=== PATIENT | female | born 1965 | race Caucasian/White ===

== ENCOUNTER 2017-09-04 03:35 | Emergency (ER) | payer MEDICAID, OTHER ==
[~2017-09-04] VITALS: Ht 144.8 cm; Wt 86.0 kg
[~2017-09-04 03:35] MED LIST: ACCU CHEK FASTCLIX; AMLO10TA2 PO; BLOOD GLUCOSE T1 TES; BUTA1CAP5 PO; CELE200C PO; CITRTAB7 PO; CLAR10CA3 PO; DOCU1CAP39 PO; FLUT1SPR5 EACH NARE; GLUCOMTESTSTRIPS XX; Glucometer; HUMALOG SQ; INFL1INJ56 IM; INSULIN LISPRO SQ; INSULIN XX; Insulin Syringe; LANTUS2P SQ; LISI2.5T3 PO; MECL-62 PO; METF850T PO; PANT40TA3 PO; ZOCO20TA PO; ZOLO25TA PO; [UNRECOGNIZED DRUG - OTHER]; [UNRECOGNIZED DRUG - SUPPLY] XX
[2017-09-04 03:40] VITALS: BP 157/73; PULSE 100; RESP 16; TEMP 99.1; O2SAT 96
[2017-09-04] MEDS ORDERED: SODIUM CHLOR 0.9% 1000 ML INJ 1,000 ML IV SCH (03:55)
[2017-09-04] MEDS ORDERED: SODIUM CHLORIDE 0.9% FLUSH 10 ML FLUSH IV FLUSH PRN (04:00)
[2017-09-04] MEDS ORDERED: HYDROmorphone HCL PF 2 MG/ML VIAL IV PUSH ONE (04:00)
[2017-09-04] MEDS ORDERED: ONDANSETRON HCL 4 MG/2 ML VIAL IVP ONE (04:00)
[2017-09-04 04:03] VITALS: BP 136/68; PULSE 76; RESP 18; O2SAT 97; O2SAT 98
[2017-09-04] MEDS ORDERED: NAPR500T2 PO (04:13)
[2017-09-04] MEDS ORDERED: ESCI10TA PO (04:13)
[2017-09-04 04:24] LABS: AUTOMATED NEUTROPHIL # 11.7 TH/MM3 (1.8-7.7); BASOPHIL # 0.1 TH/MM3 (0-0.2); BASOPHIL % 0.7 % (0.0-2.0); EOSINOPHIL # 0.1 TH/MM3 (0-0.4); EOSINOPHIL % 0.4 % (0.0-4.0); HEMATOCRIT 40.6 % (35.0-46.0); HEMOGLOBIN 13.7 GM/DL (11.6-15.3); LYMPH % 10.3 % (9.0-44.0); LYMPHOCYTE # 1.4 TH/MM3 (1.0-4.8); MEAN CELL VOLUME 86.4 FL (80.0-100.0); MEAN CORPUSCULAR HEMOGLOBIN 29.1 PG (27.0-34.0); MEAN CORPUSCULAR HGB CONC 33.6 % (32.0-36.0); MEAN PLATELET VOLUME 8.5 FL (7.0-11.0); MONOCYTE # 0.6 TH/MM3 (0-0.9); NEUT % 84.6 % (16.0-70.0); PLATELET COUNT 257 TH/MM3 (150-450); RED CELL DISTRIBUTION WIDTH 13.4 % (11.6-17.2); WHITE BLOOD COUNT 13.9 TH/MM3 (4.0-11.0)
--- NOTE | 2017-09-04 04:29 | PD ---
HPI Chief Complaint: Abdominal Pain Time Seen by Provider: 03:45 Travel History International Travel<30 days: No Contact w/Intl Traveler<30days: No Traveled to known affect area: No History of Present Illness HPI 52 old woman presents emergency department complaining of right upper quadrant abdominal pain. Symptoms started earlier today, constant since onset. Associated with shakes and diaphoresis. Some nausea and vomiting as well. One episode of loose stools. She's not had previous similar pain. She has a history of a hysterectomy and appendectomy. She's had kidney stones in the past. No history of gallbladder problems. No definite sick contacts. She otherwise has been feeling generally well and healthy. History Past Medical History Narrative Medical Hypertension Diabetes Uses a wheelchair due to osteoarthritis and leg pain Tetanus Vaccination: Unknown Influenza Vaccination: No LMP: 2005 Social History Alcohol Use: No Tobacco Use: No Allergies-Medications (Allergen,Severity, Reaction): Coded Allergies: penicillin G (Unverified Adverse Reaction, Intermediate, hives, 09/04/17) Reported Meds & Prescriptions Reported Meds & Active Scripts Active Pantoprazole (Pantoprazole Sodium) 40 Mg Tab 40 Mg PO DAILY Metformin (Metformin HCl) 850 Mg Tab 850 Mg PO BIDPC With meals Zocor (Simvastatin) 20 Mg Tab 20 Mg PO HS Lantus Inj (Insulin Glargine) 1,000 Unit/10 Ml Vial 20 Units SQ HS and 18 units sq every morning. Humalog Inj (Insulin Human Lispro) 1,000 Unit/10 Ml Vial 8 Units SQ TIDAC SQ SSI: 121-150=2 units, 151-200=4 units, 201-250=6 units, 251-300=8 units, 301-350=10 units,>351 call/go to ED Lisinopril 2.5 Mg Tab 2.5 Mg PO DAILY Amlodipine (Amlodipine Besylate) 10 Mg Tab 10 Mg PO DAILY Celebrex (Celecoxib) 200 Mg Cap 200 Mg PO DAILY Please take only if needed, please be aware of carviovascular risks as well gastric irritation, bleeding and kidney injury. Blood Glucose Test Strips 1 Jojo Jojo 1 Box .ROUTE CHECK 4 TIMES DAILY. Reported Naproxen 500 Mg Tab 500 Mg PO BID Escitalopram (Escitalopram Oxalate) 10 Mg Tab 10 Mg PO DAILY Claritin (Loratadine) 10 Mg Cap 10 Mg PO DAILY Zoloft (Sertraline HCl) 25 Mg Tab 25 Mg PO DAILY Meclizine (Meclizine HCl) 25 Mg Tab 25 Mg PO TID PRN Kzdcplervy-Ekouqfizpduvm-Bcsmlucs 50-300-40 Mg Cap 1 Cap PO Q4H PRN Do not exceed 6 capsules/day. Flonase Nasal [place] (Fluticasone Nasal [place]) 50 Mcg/Act [place] 50 Mcg EACH NARE BID Citracal + D3 Maximum (Calcium Citrate-Vitamin D) 315-250 Mg-Unit Tab 1 Tab PO BID [Incontinence Briefs] 1 Box [Insulin Syringe] 2 Box [Humalog 100ML] 8 Units SQ DAILY Dok (Docusate Sodium) 100 Mg Cap 100 Mg PO DAILY [Depend Silhouet] 3 Box XX [Insulin syringe] 2 Box XX [Glucomteststrips] 1 Strip XX QID [Glucometer] 1 Kit .XX [Accu-Chek Fastclix] 1 Units .XX QID Review of Systems Except as stated in HPI: all other systems reviewed are Neg Physical Exam Narrative GENERAL: Obese 52 old woman, no acute distress. SKIN: Focused skin assessment warm/dry. HEAD: Atraumatic. Normocephalic. EYES: Pupils equal and round. No scleral icterus. No injection or drainage. ENT: No nasal bleeding or discharge. Mucous membranes pink and moist. NECK: Trachea midline. No JVD. CARDIOVASCULAR: Regular rate and rhythm. No murmur appreciated. RESPIRATORY: No accessory muscle use. Clear to auscultation. Breath sounds equal bilaterally. GASTROINTESTINAL: Abdomen is obese with focal significant tenderness in the right upper quadrant. Positive Mena's. Some voluntary guarding. NEUROLOGICAL: Awake and alert. No obvious cranial nerve deficits. Motor grossly within normal limits. Normal speech. PSYCHIATRIC: Appropriate mood and affect; insight and judgment normal. Data Data Last Documented VS Vital Signs Date Time Temp Pulse Resp B/P (MAP) Pulse Ox O2 Delivery O2 Flow Rate FiO2 09/04/17 04:03 97 Room Air 09/04/17 04:03 76 18 09/04/17 03:40 99.1 Orders Orders Complete Blood Count With Diff (09/04/17 03:55) Comprehensive Metabolic Panel (09/04/17 03:55) Lipase (09/04/17 03:55) Urinalysis - C+S If Indicated (09/04/17 03:55) Us Abdomen Gallbladder (09/04/17 ) Iv Access Insert/Monitor (09/04/17 03:55) Ecg Monitoring (09/04/17 03:55) Oximetry (09/04/17 03:55) Ondansetron Inj (Zofran Inj) (09/04/17 04:00) Sodium Chlor 0.9% 1000 Ml Inj (Ns 1000 M (09/04/17 03:55) Sodium Chloride 0.9% Flush (Ns Flush) (09/04/17 04:00) Electrocardiogram (09/04/17 03:55) Hydromorphone Pf Inj (Dilaudid Pf Inj) (09/04/17 04:00) Labs Laboratory Tests Test 09/04/17 04:00 MDM Medical Decision Making Medical Screen Exam Complete: Yes Emergency Medical Condition: Yes Interpretation(s) My review of EKG: Normal sinus rhythm at a rate of 74, normal axis, normal intervals, no acute ischemia. Differential Diagnosis Cholecystitis, pancreatitis, gastritis, other Narrative Course Medical decision making INITIAL: 52 year-old woman who presents to the emergency department complaining of right upper quadrant abdominal pain. She is focally tender over the gallbladder is showing suspicion for cholecystitis. We'll check labs, ultrasound, reassess. Jossue Alcantara MD Sep 04, 2017 04:29
[2017-09-04 04:51] LABS: ALKALINE PHOSPHATASE 103 U/L (45-117); TOTAL BILIRUBIN ADULT 0.8 MG/DL (0.2-1.0); TOTAL PROTEIN 7.7 GM/DL (6.4-8.2)
[2017-09-04 04:56] LABS: ALBUMIN 3.8 GM/DL (3.4-5.0); ALT (GPT) 47 U/L (10-53); AST (GOT) 25 U/L (15-37); BLOOD UREA NITROGEN 10 MG/DL (7-18); CALCIUM 8.9 MG/DL (8.5-10.1); CHLORIDE 101 MEQ/L (98-107); CREATININE 0.63 MG/DL (0.50-1.00); GLOMERULAR FILTRATION RATE 98 ML/MIN (>89); GLUCOSE,RANDOM 207 MG/DL (74-106); LIPASE 64 U/L (73-393); SODIUM (NA) 135 MEQ/L (136-145)
--- NOTE | 2017-09-04 05:42 | RADRPT ---
EXAM DATE/TIME: 09/04/2017 05:08 This report includes an Addendum and supersedes previous reports for this exam. [facility] COMPARISON: No previous studies available for comparison. INDICATIONS : Right upper quadrant pain. MEDICAL HISTORY : Gastroesophageal reflux disease. Hypertension. Hearing loss. Heart murmur. Migraines. Sleep apnea. Osteoarthritis. Diabetes. Depression. Anxiety. SURGICAL HISTORY : Hysterectomy. Appendectomy. Tonsillectomy. Hip surgery. ENCOUNTER: Initial ACUITY: 1 day PAIN SCORE: 4/10 LOCATION: Right upper quadrant MEASUREMENTS: LIVER: 19.1 cm length COMMON DUCT: 8 mm RIGHT KIDNEY: 10.4 x 5.8 x 5.5 cm FINDINGS: The liver is slightly echogenic which maybe due to fatty infiltration and or hepatocellular dysfuncti on with an area of approximate 2.7 cm hypoechogenicity adjacent to the gallbladder may be focal spari ng. The gallbladder is intact without any evidence for gallstones, gallbladder wall thickening, or pe richolecystic fluid. The visualized head of the pancreas, and right kidney appear grossly intact for technique. CONCLUSION: Fatty liver and probable focal sparing. Bire Parra MD on September 04, 2017 at 5:39 Board Certified Radiologist. This report was verified electronically. ADDENDUM: The gallbladder is distended and measures almost 10.5 cm and there is questionable sludge within the gallbladder correlating with the patient's MRCP. Brie Parra MD on September 07, 2017 at 15:03 Board Certified Radiologist. This report was verified electronically.
--- NOTE | 2017-09-04 05:47 | PD ---
Data Data Last Documented VS Vital Signs Date Time Temp Pulse Resp B/P (MAP) Pulse Ox O2 Delivery O2 Flow Rate FiO2 09/04/17 04:29 16 09/04/17 04:03 97 Room Air 09/04/17 04:03 76 09/04/17 03:40 99.1 Orders Orders Complete Blood Count With Diff (09/04/17 03:55) Comprehensive Metabolic Panel (09/04/17 03:55) Lipase (09/04/17 03:55) Urinalysis - C+S If Indicated (09/04/17 03:55) Us Abdomen Gallbladder (09/04/17 ) Iv Access Insert/Monitor (09/04/17 03:55) Ecg Monitoring (09/04/17 03:55) Oximetry (09/04/17 03:55) Ondansetron Inj (Zofran Inj) (09/04/17 04:00) Sodium Chlor 0.9% 1000 Ml Inj (Ns 1000 M (09/04/17 03:55) Sodium Chloride 0.9% Flush (Ns Flush) (09/04/17 04:00) Electrocardiogram (09/04/17 03:55) Hydromorphone Pf Inj (Dilaudid Pf Inj) (09/04/17 04:00) Ct Abd/Pel W Iv Contrast(Rout) (09/04/17 ) Iohexol 350 Inj (Omnipaque 350 Inj) (09/04/17 06:31) Labs Laboratory Tests Test 09/04/17 04:00 09/04/17 05:47 White Blood Count 13.9 TH/MM3 Red Blood Count 4.70 MIL/MM3 Hemoglobin 13.7 GM/DL Hematocrit 40.6 % Mean Corpuscular Volume 86.4 FL Mean Corpuscular Hemoglobin 29.1 PG Mean Corpuscular Hemoglobin Concent 33.6 % Red Cell Distribution Width 13.4 % Platelet Count 257 TH/MM3 Mean Platelet Volume 8.5 FL Neutrophils (%) (Auto) 84.6 % Lymphocytes (%) (Auto) 10.3 % Monocytes (%) (Auto) 4.0 % Eosinophils (%) (Auto) 0.4 % Basophils (%) (Auto) 0.7 % Neutrophils # (Auto) 11.7 TH/MM3 Lymphocytes # (Auto) 1.4 TH/MM3 Monocytes # (Auto) 0.6 TH/MM3 Eosinophils # (Auto) 0.1 TH/MM3 Basophils # (Auto) 0.1 TH/MM3 CBC Comment DIFF FINAL Differential Comment Blood Urea Nitrogen 10 MG/DL Creatinine 0.63 MG/DL Random Glucose 207 MG/DL Total Protein 7.7 GM/DL Albumin 3.8 GM/DL Calcium Level 8.9 MG/DL Alkaline Phosphatase 103 U/L Aspartate Amino Transf (AST/SGOT) 25 U/L Alanine Aminotransferase (ALT/SGPT) 47 U/L Total Bilirubin 0.8 MG/DL Sodium Level 135 MEQ/L Potassium Level 4.0 MEQ/L Chloride Level 101 MEQ/L Carbon Dioxide Level 23.0 MEQ/L Anion Gap 11 MEQ/L Estimat Glomerular Filtration Rate 98 ML/MIN Lipase 64 U/L Urine Color YELLOW Urine Turbidity CLEAR Urine pH 5.5 Urine Specific [place] 1.012 Urine Protein NEG mg/dL Urine Glucose (UA) TRACE mg/dL Urine Ketones 80 mg/dL Urine Occult Blood NEG Urine Nitrite NEG Urine Bilirubin NEG Urine Urobilinogen LESS THAN 2.0 MG/DL Urine Leukocyte Esterase NEG Urine RBC 1 /hpf Urine WBC 3 /hpf Urine Squamous Epithelial Cells 3 /hpf Urine Bacteria RARE /hpf Urine Mucus FEW /lpf Microscopic Urinalysis Comment CULT NOT INDICATED MDM Supervised Visit with [facility]IV[facility]: No Narrative Course CMP is unremarkable, mildly elevated glucose. CBC with mild leukocytosis. UA is unremarkable. Right upper quadrant ultrasound: Normal gallbladder. Fatty liver a probable focal sparing. CT abdomen and pelvis: Fatty liver. Left adrenal nodule most likely benign adenoma. Extensor degenerative arthritis and bilateral hip joints with flattening of the femoral heads. Diagnosis Primary Impression: Abdominal pain Additional Instruction: Take ranitidine as prescribed. Use Tylenol as needed for abdominal pain. Follow-up with her primary doctor in 2-4 days for repeat evaluation. Return to the emergency department for any worsening abdominal pain, fevers, or any other new or worsening symptoms. Med/Other Pt SpecificInfo: No Change to Meds Disposition: 01 DISCHARGE HOME Condition: Stable Jossue Alcantara MD Sep 04, 2017 05:47
[2017-09-04 05:57] LABS: BACTERIA, URINE RARE /hpf; BILIRUBIN, URINE NEG (NEG); BLOOD, URINE NEG (NEG); GLUCOSE,URINE TRACE mg/dL (NEG); KETONE, URINE 80 mg/dL (NEG); MUCUS URINE FEW /lpf (OCC); NITRITE,URINE NEG (NEG); PH, URINE 5.5 (5.0-8.5); SQUAMOUS EPITHELIAL CELL URINE 3 /hpf (0-5); URINE COLOR YELLOW (YELLW/STRAW); URINE LEUKOCYTE ESTERASE NEG (NEG)
[2017-09-04] MEDS ORDERED: IOHEXOL 350 MG/ML 10 ML VIAL (for RAD DIAG) IVCONTRAST ONE (06:31)
--- NOTE | 2017-09-04 06:53 | RADRPT ---
EXAM DATE/TIME: 09/04/2017 06:04 This report includes an Addendum and supersedes previous reports for this exam. [facility] COMPARISON: US ABDOMEN - GALLBLADDER, September 04, 2017, 5:08. INDICATIONS : Right upper quadrant pain with vomiting. IV CONTRAST: 100 cc Omnipaque 350 (iohexol) IV ORAL CONTRAST: No oral contrast ingested. RADIATION DOSE: 11.75 CTDIvol (mGy) MEDICAL HISTORY : Gastroesophageal reflux disease. Hypertension. Osteoarthritis.Diabetes. SURGICAL HISTORY : Appendectomy. Hysterectomy. ENCOUNTER: Initial ACUITY: 1 day PAIN SCALE: 4/10 LOCATION: Right upper quadrant TECHNIQUE: Volumetric scanning of the abdomen and pelvis was performed. Using automated exposure control and adjustment of the mA and/or kV according to patient size, radiation dose was kept as low as reasonably achievable to obtain optimal diagnostic quality images. DICOM format image data is av ailable electronically for review and comparison. FINDINGS: CT Abdomen: The spleen, pancreas, right adrenal are unremarkable. The liver is fatty without focal le sions or technique. Multiple tiny subcentimeter cysts are present in the kidneys. There is no evidenc e for any appreciable pathological adenopathy, free fluid, or bowel obstruction. Approximate 1.1 cm left adrenal nodule is present benign in appearance probably tiny adenoma CT pelvis: There is no evidence for mass, abscess formation, or any significant adenopathy within the pelvis. Significant for advanced osteoarthritis is seen in both hip joints with flattening of the fe moral head subarticular cystic formation and complete loss of the articular cartilage. CONCLUSION: 1. Fatty liver. 2. Left adrenal nodule most likely benign adenoma. 3. Extensive degenerative arthritis of bilateral hip joints and flattening of the femoral heads as ab ove. Brie Parra MD on September 04, 2017 at 6:47 Board Certified Radiologist. This report was verified electronically. ADDENDUM: COMPARISON: MRCP W/O CONTRAST, September 06, 2017, 14:05. After further review and correlating with the patient's MRCP and ultrasound the gallbladder appears d istended measures 10.2 cm in AP diameter and the sludge is seen within the gallbladder on MRCP diffic ult to visualize due to technique. Brie Parra MD on September 07, 2017 at 15:01 Board Certified Radiologist. This report was verified electronically.
[2017-09-04] MEDS ORDERED: DICY10 PO (07:07)
[2017-09-04] MEDS ORDERED: ZOFR4TAB3 SL (07:07)
[2017-09-04] MEDS ORDERED: ONDANSETRON HCL 4 MG/2 ML VIAL IV PUSH ONE (07:30)
[2017-09-04 07:39] VITALS: BP 120/60; PULSE 80; RESP 16; O2SAT 94
--- NOTE | 2017-09-04 14:37 | EKG ---
Date Performed: 09/04/2017 Time Performed: 04:19:01 PTAGE: 52 years EKG: Sinus rhythm NORMAL ECG NO PREVIOUS TRACING DOCTOR: Jossue Saunders Interpretating Date/Time 09/04/2017 14:37:10
== END 2017-09-04 08:19 | disposition home or self-care (01) ==
LOC: NEPE 03:35
DX: R10.11 Right upper quadrant pain (principal); K76.0 Fatty (change of) liver, not elsewhere classified; E11.9 Type 2 diabetes mellitus without complications; I10 Essential (primary) hypertension; Z79.4 Long term (current) use of insulin
CPT/HCPCS: 74177; 76705; 80053; 81001; 83690; 85025; 93005; 96361; 96374; 96375; 96376; J1170; J2405; J7030; Q9967

== ENCOUNTER 2017-09-05 16:30 | Inpatient (IN) | payer OTHER ==
[~2017-09-05 16:30] MED LIST changes: +DICY10 PO; +ESCI10TA PO; -INFL1INJ56 IM; +NAPR500T2 PO; +ZOFR4TAB3 SL
[2017-09-05 16:31] VITALS: BP 146/77; PULSE 115; RESP 14; TEMP 99.2; O2SAT 96
[2017-09-05 17:43] LABS: AUTOMATED NEUTROPHIL # 25.5 TH/MM3 (1.8-7.7); BASOPHIL # 0.1 TH/MM3 (0-0.2); BASOPHIL % 0.3 % (0.0-2.0); HEMATOCRIT 43.8 % (35.0-46.0); LYMPH % 3.2 % (9.0-44.0); LYMPHOCYTE # 0.9 TH/MM3 (1.0-4.8); MEAN CELL VOLUME 87.2 FL (80.0-100.0); MEAN CORPUSCULAR HEMOGLOBIN 29.8 PG (27.0-34.0); MEAN CORPUSCULAR HGB CONC 34.1 % (32.0-36.0); MEAN PLATELET VOLUME 8.5 FL (7.0-11.0); MONO % 4.3 % (0.0-8.0); MONOCYTE # 1.2 TH/MM3 (0-0.9); NEUT % 92.2 % (16.0-70.0); PLATELET COUNT 310 TH/MM3 (150-450); RED BLOOD COUNT 5.02 MIL/MM3 (4.00-5.30); RED CELL DISTRIBUTION WIDTH 13.7 % (11.6-17.2); WHITE BLOOD COUNT 27.6 TH/MM3 (4.0-11.0)
[2017-09-05 17:54] LABS: ALBUMIN 3.5 GM/DL (3.4-5.0); ALKALINE PHOSPHATASE 119 U/L (45-117); ALT (GPT) 66 U/L (10-53); AST (GOT) 55 U/L (15-37); BICARBONATE 23.5 MEQ/L (21.0-32.0); BLOOD UREA NITROGEN 15 MG/DL (7-18); CALCIUM 10.2 MG/DL (8.5-10.1); CHLORIDE 100 MEQ/L (98-107); CREATININE 0.84 MG/DL (0.50-1.00); GLOMERULAR FILTRATION RATE 71 ML/MIN (>89); GLUCOSE,RANDOM 297 MG/DL (74-106); LIPASE 50 U/L (73-393); SODIUM (NA) 136 MEQ/L (136-145); TOTAL BILIRUBIN ADULT 1.3 MG/DL (0.2-1.0); TOTAL PROTEIN 8.5 GM/DL (6.4-8.2)
--- NOTE | 2017-09-05 18:26 | PD ---
HPI Chief Complaint: GI Complaint Time Seen by Provider: 18:02 Travel History International Travel<30 days: No Contact w/Intl Traveler<30days: No Traveled to known affect area: No History of Present Illness HPI 52yo F with PMH of DM presents to the ED with persistent RUQ pain, nausea, and chills. Pt was seen here yesterday 09/04/17 for RUQ pain and had US that showed normal gallbladder and CT a/p that showed fatty liver with left adrenal nodules. Pt went to her PMD today and said she was told to have bland diet. She said she drank soup at about 1:30pm and immediately after, her abdomen started hurting more. Still not really able to tolerate PO. No vomiting. Denies chest pain, sob, focal weakness or numbness. Pain is RUQ mainly and worst with deep breathing, and sharp. Constant, nonradiating. PSH hysterectomy and appendectomy. PFSH Past Medical History Diabetes: Yes Patient Takes Glucophage: No Hypertension: Yes ?: Not Past Surgical History Appendectomy: Yes Hysterectomy: Yes Social History Alcohol Use: No Tobacco Use: No Substance Use: No Allergies-Medications (Allergen,Severity, Reaction): Coded Allergies: penicillin G (Unverified Adverse Reaction, Intermediate, hives, 09/05/17) Reported Meds & Prescriptions Reported Meds & Active Scripts Active Bentyl (Dicyclomine HCl) 10 Mg Cap 10 Mg PO QID Zofran Odt (Ondansetron Odt) 4 Mg Tab 4 Mg SL Q8HR PRN Pantoprazole (Pantoprazole Sodium) 40 Mg Tab 40 Mg PO DAILY Metformin (Metformin HCl) 850 Mg Tab 850 Mg PO BIDPC With meals Zocor (Simvastatin) 20 Mg Tab 20 Mg PO HS Lantus Inj (Insulin Glargine) 1,000 Unit/10 Ml Vial 20 Units SQ HS and 18 units sq every morning. Humalog Inj (Insulin Human Lispro) 1,000 Unit/10 Ml Vial 8 Units SQ TIDAC SQ SSI: 121-150=2 units, 151-200=4 units, 201-250=6 units, 251-300=8 units, 301-350=10 units,>351 call/go to ED Lisinopril 2.5 Mg Tab 2.5 Mg PO DAILY Amlodipine (Amlodipine Besylate) 10 Mg Tab 10 Mg PO DAILY Celebrex (Celecoxib) 200 Mg Cap 200 Mg PO DAILY Please take only if needed, please be aware of carviovascular risks as well gastric irritation, bleeding and kidney injury. Blood Glucose Test Strips 1 Jojo Jojo 1 Box .ROUTE CHECK 4 TIMES DAILY. Reported Naproxen 500 Mg Tab 500 Mg PO BID Escitalopram (Escitalopram Oxalate) 10 Mg Tab 10 Mg PO DAILY Claritin (Loratadine) 10 Mg Cap 10 Mg PO DAILY Zoloft (Sertraline HCl) 25 Mg Tab 25 Mg PO DAILY Meclizine (Meclizine HCl) 25 Mg Tab 25 Mg PO TID PRN Asvudgyjxq-Rxbajofkbykmn-Kswaogqm 50-300-40 Mg Cap 1 Cap PO Q4H PRN Do not exceed 6 capsules/day. Flonase Nasal [place] (Fluticasone Nasal [place]) 50 Mcg/Act [place] 50 Mcg EACH NARE BID Citracal + D3 Maximum (Calcium Citrate-Vitamin D) 315-250 Mg-Unit Tab 1 Tab PO BID [Incontinence Briefs] 1 Box [Insulin Syringe] 2 Box [Humalog 100ML] 8 Units SQ DAILY Dok (Docusate Sodium) 100 Mg Cap 100 Mg PO DAILY [Depend Silhouet] 3 Box XX [Insulin syringe] 2 Box XX [Glucomteststrips] 1 Strip XX QID [Glucometer] 1 Kit .XX [Accu-Chek Fastclix] 1 Units .XX QID Review of Systems Except as stated in HPI: all other systems reviewed are Neg Physical Exam Narrative GENERAL: 52yo F in moderate distress. SKIN: Focused skin assessment warm/dry. HEAD: Atraumatic. Normocephalic. CARDIOVASCULAR: Regular rate and rhythm. No murmur appreciated. RESPIRATORY: No accessory muscle use. Clear to auscultation. Breath sounds equal bilaterally. GASTROINTESTINAL: Abdomen soft, +RUQ. +[place] sign. +Mild epigastric ttp. MUSCULOSKELETAL: No obvious deformities. No clubbing. No cyanosis. No edema. NEUROLOGICAL: Awake and alert. No obvious cranial nerve deficits. Motor grossly within normal limits. Normal speech. PSYCHIATRIC: Appropriate mood and affect; insight and judgment normal. Data Data Last Documented VS Vital Signs Date Time Temp Pulse Resp B/P (MAP) Pulse Ox O2 Delivery O2 Flow Rate FiO2 09/05/17 19:17 99.6 107 20 122/81 (95) 96 Room Air Orders Orders Complete Blood Count With Diff (09/05/17 16:44) Comprehensive Metabolic Panel (09/05/17 16:44) Lipase (09/05/17 16:44) Blood Culture (09/05/17 18:17) Lactic Acid Sepsis Protocol (09/05/17 18:17) Sodium Chlor 0.9% 1000 Ml Inj (Ns 1000 M (09/05/17 18:30) Morphine Inj (Morphine Inj) (09/05/17 18:30) Vancomycin Inj (Vancomycin Inj) (09/05/17 18:30) Aztreonam Inj (Azactam Inj) (09/05/17 18:30) Ondansetron Inj (Zofran Inj) (09/05/17 18:30) Potassium Chloride (Kcl) (09/05/17 18:30) Metronidazole (Flagyl) (09/05/17 18:30) Consult Gastroenterology (09/05/17 ) Admit Order (Ed Use Only) (09/05/17 19:46) Labs Laboratory Tests Test 09/05/17 17:00 09/05/17 18:40 White Blood Count 27.6 TH/MM3 Red Blood Count 5.02 MIL/MM3 Hemoglobin 15.0 GM/DL Hematocrit 43.8 % Mean Corpuscular Volume 87.2 FL Mean Corpuscular Hemoglobin 29.8 PG Mean Corpuscular Hemoglobin Concent 34.1 % Red Cell Distribution Width 13.7 % Platelet Count 310 TH/MM3 Mean Platelet Volume 8.5 FL Neutrophils (%) (Auto) 92.2 % Lymphocytes (%) (Auto) 3.2 % Monocytes (%) (Auto) 4.3 % Eosinophils (%) (Auto) 0.0 % Basophils (%) (Auto) 0.3 % Neutrophils # (Auto) 25.5 TH/MM3 Lymphocytes # (Auto) 0.9 TH/MM3 Monocytes # (Auto) 1.2 TH/MM3 Eosinophils # (Auto) 0.0 TH/MM3 Basophils # (Auto) 0.1 TH/MM3 CBC Comment DIFF FINAL Differential Comment Blood Urea Nitrogen 15 MG/DL Creatinine 0.84 MG/DL Random Glucose 297 MG/DL Total Protein 8.5 GM/DL Albumin 3.5 GM/DL Calcium Level 10.2 MG/DL Alkaline Phosphatase 119 U/L Aspartate Amino Transf (AST/SGOT) 55 U/L Alanine Aminotransferase (ALT/SGPT) 66 U/L Total Bilirubin 1.3 MG/DL Sodium Level 136 MEQ/L Potassium Level 3.1 MEQ/L Chloride Level 100 MEQ/L Carbon Dioxide Level 23.5 MEQ/L Anion Gap 13 MEQ/L Estimat Glomerular Filtration Rate 71 ML/MIN Lipase 50 U/L Lactic Acid Level 1.7 mmol/L MDM Medical Decision Making Medical Screen Exam Complete: Yes Emergency Medical Condition: Yes Differential Diagnosis Acute cholangitis vs. common bile duct stone vs. Acute cholecystitis Narrative Course 52yo F with persistent RUQ pain. Labs reviewed, leukocytosis at 27.6 which is elevated from 13.9 yesterday. Mild hypokalemia at 3.1, replaced orally. Glucose is still elevated at 297 but no increased anion gap. CO2 normal. Pt has elevated liver enzymes, total bilirubin, calcium and alk phos compare to yesterday. Lipase low. Pt has temp of 99.2F and tachycardic at 115bpm. Blood cultures added as well as lactic acid. Pt given NS IVF, vancomycin, aztreonam, metronidazole because she is allergic to penicillin. Morphine and zofran given for pain and nausea. Pt had US gallbladder yesterday that showed normal gallbladder but common bile duct was dilated at 8mm. Pt reevaluated at bedside with some improvement of pain. HR has decreased to 107bpm. Lactic acid normal at 1.7. GI consult placed. Discussed with Dr. Hurtado and accepted to her service. Critical Care Narrative Aggregate critical care time was 40 minutes. Time to perform other separately billable procedures was not included in the critical care time. My time did not include minutes spent treating any other patients simultaneously or on activities that did not directly contribute to the patient's treatment. The services I provided to this patient were to treat and/or prevent clinically significant deterioration that could result in: cardiovascular collapse or . I provided critical care services requiring my management, as noted below: Chart data review, documentation time, medication orders and management, vital sign assessments/reviewing monitor data, ordering and reviewing lab tests, ordering and interpreting/reviewing x-rays and diagnostic studies, care of the patient and discussion of the patient with the admitting physicians. Sepsis Criteria SIRS Criteria (2 or more): Heart rate over 90, WBC > 89906, < 4000 or > 10% bands Sepsis Criteria (SIRS+source): Infect source susp/known Diagnosis Primary Impression: Sepsis Qualified Codes: A41.9 - Sepsis, unspecified organism Admitting Information Admitting Physician Requests: Admit Ruchi Cordova DO Sep 05, 2017 18:26
[2017-09-05] MEDS ORDERED: AZTREONAM INJ 1,000 MG in SODIUM CHLORIDE 0.9% INJ 100 ML IV ONE (18:30)
[2017-09-05] MEDS ORDERED: VANCOMYCIN INJ 1,200 MG in SODIUM CHLOR 0.9% 250 ML INJ 250 ML IV ONE (18:30)
[2017-09-05] MEDS ORDERED: POTASSIUM CHLORIDE 20 MEQ CONTROLLED RELEASE TAB PO ONE (18:30)
[2017-09-05] MEDS ORDERED: ONDANSETRON HCL 4 MG/2 ML VIAL IV PUSH ONE (18:30)
[2017-09-05] MEDS ORDERED: MORPHINE SULFATE 2 MG/ML INJ IV PUSH ONE (18:30)
[2017-09-05] MEDS ORDERED: metroNIDAZOLE 500 MG TAB PO ONE (18:30)
[2017-09-05] MEDS ORDERED: SODIUM CHLOR 0.9% 1000 ML INJ 1,000 ML IV ONE (18:30)
[2017-09-05 19:17] VITALS: BP 122/81; PULSE 107; RESP 20; TEMP 99.6; O2SAT 96
[2017-09-05] MEDS ORDERED: ACETAMINOPHEN 325 MG TAB PO PRN (20:00)
[2017-09-05] MEDS: SODIUM CHLOR 0.9% 1000 ML INJ 1,000 ML IV SCH (20:00)
[2017-09-05] MEDS ORDERED: LACTULOSE SYRUP 20 GM/30 ML CUP PO PRN (20:00)
[2017-09-05] MEDS ORDERED: Vancomycin Consult Pharmacy 1 EA OTHER SCH (20:00)
[2017-09-05] MEDS ORDERED: GLUCAGON 1 MG/ML VIAL OTHER PRN (20:00)
[2017-09-05] MEDS ORDERED: DEXTROSE 50% IN WATER 50 ML VIAL(D50) IV PUSH PRN (20:00)
[2017-09-05] MEDS ORDERED: SENNOSIDES 8.6 MG TAB PO PRN (20:00)
[2017-09-05] MEDS ORDERED: MAGNESIUM HYDROXIDE SUSP 30 ML CUP PO PRN (20:00)
[2017-09-05] MEDS ORDERED: BISACODYL 10 MG SUPP RECTAL PRN (20:00)
[2017-09-05 20:36] VITALS: BP 146/76; PULSE 102; RESP 20; O2SAT 95
[2017-09-05] MEDS: INSULIN ASPART SUPPLEMENTAL SCALE SQ SCH (21:00)
[2017-09-05] MEDS: DOCUSATE SODIUM 50 MG/SENNA 8.6 MG TAB PO SCH (21:08)
[2017-09-05] MEDS: SODIUM CHLORIDE 0.9% FLUSH 10 ML FLUSH IV FLUSH SCH (21:09)
[2017-09-05 21:11] VITALS: BP 144/78; PULSE 116; RESP 26; TEMP 100.6; O2SAT 93
[2017-09-05 23:53] VITALS: BP 134/76; PULSE 117; RESP 26; TEMP 99; O2SAT 93
[2017-09-06] VITALS (7 sets, daily range): BP systolic 109–138; BP diastolic 57–70; PULSE 103–118; RESP 18–24; TEMP 97.8–99.9; O2SAT 82–95
--- NOTE | 2017-09-06 00:05 | HHI.HP ---
HPI Service [facility] Primary Care Physician Non-Staff Admission Diagnosis sepsis with dilated common bile duct Diagnoses: (1) Sepsis Diagnosis: Principal (2) Elevated LFTs Diagnosis: Principal (3) Hypokalemia Diagnosis: Principal (4) Dehydration Diagnosis: Principal (5) Hypercalcemia Diagnosis: Principal (6) DM (diabetes mellitus) Diagnosis: Principal Travel History International Travel<30 Days: No Contact w/Intl Traveler <30 Da: No Traveled to Known Affected Are: No History of Present Illness This is a 52-year-old female with a PMH of HTN and DM was sent to the ER with complaints of RUQ pain x2 days. Pain is sharp, severe 10/10 and constant, worse after eating. Reports associated nausea/vomiting. No fever, chills or diarrhea. Seen in ER on 09/04/17 for similar complaints, CT Abd/Pelvis w/ fatty liver, left adrenal nodule likely benign, Gallbladder US normal, U/a negative, Labs essentially unremarkable. Seen by PCP today for ongoing complaints, however no improvement, states pain recurred after eating some soup and came to ER. On arrival, BP 146/77, HR 1:15, O2 sat 96% on RA, Temp 100.6. WBC 27.6, WBC 13.9 on 09/04/17. LFTs elevated in comparison to previous labs from 09/04/17. Calcium 10.2. Lactic Acid normal. K+ 3.1. U/a negative. S/p Blood Cultures, Vanc/Zosyn in ER. Review of Systems Except as stated in HPI: all other systems reviewed are Neg ROS: 14 point review of systems otherwise negative. Past Family Social History Past Medical History PMH: HTN and DM Past Surgical History PAST SURGICAL HISTORY: Appendectomy, Hysterectomy Allergies: Coded Allergies: penicillin G (Unverified Adverse Reaction, Intermediate, hives, 09/05/17) Family History PAST FAMILY HISTORY: Reviewed, positive for DM Social History PAST SOCIAL HISTORY: Negative for alcohol, tobacco or drugs. Physical Exam Vital Signs Vital Signs Date Time Temp Pulse Resp B/P (MAP) Pulse Ox O2 Delivery O2 Flow Rate FiO2 09/05/17 23:53 99.0 117 26 134/76 (95) 93 09/05/17 21:11 100.6 116 26 144/78 (100) 93 09/05/17 20:36 102 20 146/76 (99) 95 Room Air 09/05/17 19:17 99.6 107 20 122/81 (95) 96 Room Air 09/05/17 18:07 18 09/05/17 16:31 99.2 115 14 146/77 (100) 96 Physical Exam PE: GENERAL: Pleasant middle-aged female in no acute distress. HEENT: PERRLA, EOMI. No scleral icterus or conjunctival pallor. No lid lag or facial droop. CARDIOVASCULAR: Regular rate and rhythm. No obvious murmurs to auscultation. No chest tenderness to palpation. RESPIRATORY: No obvious rhonchi or wheezing. Clear to auscultation. Breath sounds equal bilaterally. GASTROINTESTINAL: Abdomen soft, moderate RUQ tenderness to palpation, nondistended. BS normal. MUSCULOSKELETAL: Extremities without clubbing, cyanosis, or edema. No obvious deformities. NEUROLOGICAL: Awake, alert and oriented x4. No focal neurologic deficits. Moving both upper and lower extremities spontaneously. Laboratory Laboratory Tests Test 09/05/17 17:00 09/05/17 18:40 White Blood Count 27.6 Red Blood Count 5.02 Hemoglobin 15.0 Hematocrit 43.8 Mean Corpuscular Volume 87.2 Mean Corpuscular Hemoglobin 29.8 Mean Corpuscular Hemoglobin Concent 34.1 Red Cell Distribution Width 13.7 Platelet Count 310 Mean Platelet Volume 8.5 Neutrophils (%) (Auto) 92.2 Lymphocytes (%) (Auto) 3.2 Monocytes (%) (Auto) 4.3 Eosinophils (%) (Auto) 0.0 Basophils (%) (Auto) 0.3 Neutrophils # (Auto) 25.5 Lymphocytes # (Auto) 0.9 Monocytes # (Auto) 1.2 Eosinophils # (Auto) 0.0 Basophils # (Auto) 0.1 CBC Comment DIFF FINAL Differential Comment Blood Urea Nitrogen 15 Creatinine 0.84 Random Glucose 297 Total Protein 8.5 Albumin 3.5 Calcium Level 10.2 Alkaline Phosphatase 119 Aspartate Amino Transf (AST/SGOT) 55 Alanine Aminotransferase (ALT/SGPT) 66 Total Bilirubin 1.3 Sodium Level 136 Potassium Level 3.1 Chloride Level 100 Carbon Dioxide Level 23.5 Anion Gap 13 Estimat Glomerular Filtration Rate 71 Lipase 50 Lactic Acid Level 1.7 Date/Time Source Procedure Growth Status 09/05/17 18:50 Blood Peripheral Aerobic Blood Culture Pending Received 09/05/17 18:50 Blood Peripheral Anaerobic Blood Culture Pending Received Result Diagram: 09/05/17 1700 09/05/17 1700 Caprini VTE Risk Assessment Caprini VTE Risk Assessment: No/Low Risk (score <= 1) Caprini Risk Assessment Model Point Value = 1 Point Value = 2 Point Value = 3 Point Value = 5 Age 41-60 Minor surgery BMI > 25 kg/m2 Swollen legs Varicose veins or History of unexplained or recurrent spontaneous Oral contraceptives or hormone replacement Sepsis (< 1 month) Serious lung disease, including pneumonia (< 1 month) Abnormal pulmonary function Acute myocardial infarction Congestive heart failure (< 1 month) History of inflammatory bowel disease Medical patient at bed rest Age 61-74 Arthroscopic surgery Major open surgery (> 45 min) Laparoscopic surgery (> 45 min) Malignancy Confined to bed (> 72 hours) Immobilizing plaster cast Central venous access Age >= 75 History of VTE Family history of VTE Factor V Leiden Prothrombin [id number] Lupus anticoagulant Anticardiolipin antibodies Elevated serum homocysteine Heparin-induced thrombocytopenia Other congenital or acquired thrombophilia Stroke (< 1 month) Elective arthroplasty Hip, pelvis, or leg fracture Acute spinal cord injury (< 1 month) Prophylaxis Regimen Total Risk Factor Score Risk Level Prophylaxis Regimen 0-1 Low Early ambulation 2 Moderate Order ONE of the following: *Sequential Compression Device (SCD) *Heparin 5000 units SQ BID 3-4 Higher Order ONE of the following medications: *Heparin 5000 units SQ TID *Enoxaparin/Lovenox 40 mg SQ daily (WT < 150 kg, CrCl > 30 mL/min) *Enoxaparin/Lovenox 30 mg SQ daily (WT < 150 kg, CrCl > 10-29 mL/min) *Enoxaparin/Lovenox 30 mg SQ BID (WT < 150 kg, CrCl > 30 mL/min) AND/OR *Sequential Compression Device (SCD) 5 or more Highest Order ONE of the following medications: *Heparin 5000 units SQ TID (Preferred with Epidurals) *Enoxaparin/Lovenox 40 mg SQ daily (WT < 150 kg, CrCl > 30 mL/min) *Enoxaparin/Lovenox 30 mg SQ daily (WT < 150 kg, CrCl > 10-29 mL/min) *Enoxaparin/Lovenox 30 mg SQ BID (WT < 150 kg, CrCl > 30 mL/min) AND *Sequential Compression Device (SCD) Assessment and Plan Problem List: (1) Sepsis ICD Code: A41.9 - Sepsis, unspecified organism (2) Elevated LFTs ICD Code: R79.89 - Other specified abnormal findings of blood chemistry (3) Hypercalcemia ICD Code: E83.52 - Hypercalcemia (4) Hypokalemia ICD Code: E87.6 - Hypokalemia (5) Dehydration ICD Code: E86.0 - Dehydration (6) DM (diabetes mellitus) ICD Code: E11.9 - Type 2 diabetes mellitus without complications Assessment and Plan A/P: 1. Sepsis: Temp 100.6, HR 116, WBC 27.6, previously 13.9 on 09/04/17. Concern for developing cholecystitis. S/p Blood Cultures, Vanc/Zosyn in ER, will continue w/ IV Abx, IVF for hydration, follow up cultures. U/a negative. Check CXR to eval for possible underlying PNA. 2. Elevated LFTs: LFTs increased in comparison to labs from 09/04/17, +RUQ pain, worse after eating, concern for early cholecystitis as above. Bilirubin 1.3, increased from 0.8. CT Abd/Pelvis and Gallbladder US 09/04/17 w/ no significant findings, images reviewed by me. Consult GI for further eval/ intervention. May need Gen Sx eval. Repeat labs in am for trend. Clear liquid diet. 3. Hypercalcemia: Ca 10.2, likely secondary to dehydration from nausea/ vomiting and decreased PO intake. IVF for hydration, repeat labs in am. 4. Hypokalemia: K+ 3.1, s/p replacement in ER. Will recheck labs in am, replace as needed. 5. Dehydration: GFR 71, previously normal 09/04/17. U/a negative, IVF for hydration, monitor I/O, repeat labs in am. 6. DM: Sliding scale w/ Accu-Cheks. Hold Metformin in light of decreased PO intake 7. DVT Prophylaxis: SCD/Teds. 8. Previous records/reports/labs/imaging reviewed by me, case discussed at length w/ ER physician. Physician Certification 2 Midnight Certification Type: Admission for Inpatient Services Order for Inpatient Services The services are ordered in accordance with Medicare regulations or non- Medicare payer requirements, as applicable. In the case of services not specified as inpatient-only, they are appropriately provided as inpatient services in accordance with the 2-midnight benchmark. Estimated LOS (days): 2 days is the estimated time the patient will need to remain in the hospital, assuming treatment plan goals are met and no additional complications. Post-Hospital Plan: Not yet determined Margarita Hurtado MD Sep 06, 2017 00:05
[2017-09-06] MEDS: MORPHINE SULFATE 2 MG/ML INJ IV PUSH PRN ×2 (00:17→04:25)
[2017-09-06] MEDS: metroNIDAZOLE 500 MG INJ 100 ML IV SCH ×3 (00:17→18:00)
[2017-09-06] MEDS: SODIUM CHLORIDE 0.9% FLUSH 10 ML FLUSH IV FLUSH PRN ×2 (00:18→04:26)
[2017-09-06] MEDS: AZTREONAM INJ 1,000 MG in SODIUM CHLORIDE 0.9% INJ 100 ML IV SCH ×3 (02:00→18:06)
[2017-09-06] MEDS: SODIUM CHLOR 0.9% 1000 ML INJ 1,000 ML IV SCH ×2 (04:57→16:00)
--- NOTE | 2017-09-06 07:22 | RADRPT ---
EXAM DATE/TIME: 09/06/2017 06:07 [facility] COMPARISON: CT ABDOMEN & PELVIS W CONTRAST, September 04, 2017, 6:04. INDICATIONS : Short of breath, pain under right breast, vomiting, evaluate for pneumonia MEDICAL HISTORY : None. SURGICAL HISTORY : Appendectomy. ENCOUNTER: Subsequent ACUITY: 2 days PAIN SCORE: 10/10 LOCATION: Right chest FINDINGS: A single view of the chest demonstrates the lungs to be symmetrically aerated without evidence of mas s, infiltrate or effusion. The cardiomediastinal contours are unremarkable. Osseous structures are intact. CONCLUSION: No acute disease. There is no evidence of pneumonia. Luis Felipe Mosley MD on September 06, 2017 at 7:19 Board Certified Radiologist. This report was verified electronically.
[2017-09-06] MEDS: INSULIN ASPART SUPPLEMENTAL SCALE SQ SCH ×4 (08:00→20:17)
[2017-09-06 08:13] LABS: AUTOMATED NEUTROPHIL # 20.9 TH/MM3 (1.8-7.7); BASOPHIL # 0.2 TH/MM3 (0-0.2); BASOPHIL % 0.8 % (0.0-2.0); EOSINOPHIL % 0.1 % (0.0-4.0); HEMATOCRIT 37.4 % (35.0-46.0); LYMPH % 4.1 % (9.0-44.0); LYMPHOCYTE # 0.9 TH/MM3 (1.0-4.8); MEAN CELL VOLUME 86.6 FL (80.0-100.0); MEAN CORPUSCULAR HEMOGLOBIN 30.1 PG (27.0-34.0); MEAN CORPUSCULAR HGB CONC 34.7 % (32.0-36.0); MEAN PLATELET VOLUME 8.6 FL (7.0-11.0); MONO % 4.2 % (0.0-8.0); NEUT % 90.8 % (16.0-70.0); PLATELET COUNT 311 TH/MM3 (150-450); RED BLOOD COUNT 4.32 MIL/MM3 (4.00-5.30); RED CELL DISTRIBUTION WIDTH 13.8 % (11.6-17.2)
[2017-09-06] MEDS: DOCUSATE SODIUM 50 MG/SENNA 8.6 MG TAB PO SCH ×2 (08:26→20:17)
[2017-09-06] MEDS: SODIUM CHLORIDE 0.9% FLUSH 10 ML FLUSH IV FLUSH SCH ×2 (08:26→20:17)
[2017-09-06] MEDS: VANCOMYCIN INJ 1,250 MG in SODIUM CHLOR 0.9% 250 ML INJ 250 ML IV SCH ×2 (08:32→20:16)
[2017-09-06 08:48] LABS: ALBUMIN 2.6 GM/DL (3.4-5.0); ALKALINE PHOSPHATASE 148 U/L (45-117); ALT (GPT) 232 U/L (10-53); AST (GOT) 254 U/L (15-37); BICARBONATE 24.5 MEQ/L (21.0-32.0); BLOOD UREA NITROGEN 15 MG/DL (7-18); CALCIUM 9.1 MG/DL (8.5-10.1); CHLORIDE 103 MEQ/L (98-107); CREATININE 0.62 MG/DL (0.50-1.00); GLOMERULAR FILTRATION RATE 100 ML/MIN (>89); GLUCOSE,RANDOM 193 MG/DL (74-106); SODIUM (NA) 139 MEQ/L (136-145); TOTAL BILIRUBIN ADULT 1.4 MG/DL (0.2-1.0)
[2017-09-06 09:30] LABS: BANDS 3 % (0-6); LYMPHOCYTES 4 % (9-44); MONOCYTES 2 % (0-8); NEUTROPHIL # MANUAL DIFF 21.6 TH/MM3 (1.8-7.7); POLYS (SEG NEUTROPHILS) 91 % (16-70)
[2017-09-06] MEDS ORDERED: INFLUENZA VIRUS VACCINE (QUADRIVALENT) 0.5 ML SYR IM ONE (10:00)
[2017-09-06] MEDS ORDERED: PNEUMOCOCCAL POLYVALENT INJ 25 MCG/0.5 ML SYR IM ONE (10:00)
--- NOTE | 2017-09-06 10:06 | PD.CONS ---
HPI History of Present Illness This is a 52 year old female with HTN, DM who presented with right quadrant pain. 6 days ago she began having stabbing right quadrant pain, diarrhea, and n /v. The n/v and loose stool have since improved. She is still having pain on the right side worse in RUQ. Never had this pain before. She was seen on the Aug and imaging was unremarkable, as were labs. Today upward trend LFTs apparent and her WBC are elevated. She denies blood in emesis or stool, previous history of liver or gallbladder trouble. Had EGD and Colonoscopy in [place] , finding colon polyps. 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 (Kaia Zamudio) Review of Systems Except as stated in HPI: all other systems reviewed are Neg (Kaia Zamudio) GI Exam Vitals I&O Vital Signs Date Time Temp Pulse Resp B/P (MAP) Pulse Ox O2 Delivery O2 Flow Rate FiO2 09/06/17 08:00 98.7 116 18 118/67 (84) 95 09/06/17 04:00 98.3 110 24 130/68 (88) 94 09/05/17 23:53 99.0 117 26 134/76 (95) 93 09/05/17 21:11 100.6 116 26 144/78 (100) 93 09/05/17 20:36 102 20 146/76 (99) 95 Room Air 09/05/17 19:17 99.6 107 20 122/81 (95) 96 Room Air 09/05/17 18:07 18 09/05/17 16:31 99.2 115 14 146/77 (100) 96 I/O 09/05/17 09/05/17 09/05/17 09/06/17 09/06/17 09/06/17 07:00 15:00 23:00 07:00 15:00 23:00 Intake Total 1100 ml 360 ml Balance 1100 ml 360 ml Intake Oral 360 ml IV Total 1100 ml # Voids 3 # Bowel Movements 0 Imaging Last Impressions Chest X-Ray 09/06/17 0000 Signed Impressions: Service Date/Time: Wednesday, September 06, 2017 06:07 - CONCLUSION: No acute disease. There is no evidence of pneumonia. Luis Felipe Mosley MD Laboratory Test 09/05/17 17:00 09/05/17 18:40 09/06/17 07:23 White Blood Count 27.6 TH/MM3 23.0 TH/MM3 Red Blood Count 5.02 MIL/MM3 4.32 MIL/MM3 Hemoglobin 15.0 GM/DL 13.0 GM/DL Hematocrit 43.8 % 37.4 % Mean Corpuscular Volume 87.2 FL 86.6 FL Mean Corpuscular Hemoglobin 29.8 PG 30.1 PG Mean Corpuscular Hemoglobin Concent 34.1 % 34.7 % Red Cell Distribution Width 13.7 % 13.8 % Platelet Count 310 TH/MM3 311 TH/MM3 Mean Platelet Volume 8.5 FL 8.6 FL Neutrophils (%) (Auto) 92.2 % 90.8 % Lymphocytes (%) (Auto) 3.2 % 4.1 % Monocytes (%) (Auto) 4.3 % 4.2 % Eosinophils (%) (Auto) 0.0 % 0.1 % Basophils (%) (Auto) 0.3 % 0.8 % Neutrophils # (Auto) 25.5 TH/MM3 20.9 TH/MM3 Lymphocytes # (Auto) 0.9 TH/MM3 0.9 TH/MM3 Monocytes # (Auto) 1.2 TH/MM3 1.0 TH/MM3 Eosinophils # (Auto) 0.0 TH/MM3 0.0 TH/MM3 Basophils # (Auto) 0.1 TH/MM3 0.2 TH/MM3 CBC Comment DIFF FINAL AUTO DIFF Differential Comment FINAL DIFF MANUAL Blood Urea Nitrogen 15 MG/DL 15 MG/DL Creatinine 0.84 MG/DL 0.62 MG/DL Random Glucose 297 MG/DL 193 MG/DL Total Protein 8.5 GM/DL 7.0 GM/DL Albumin 3.5 GM/DL 2.6 GM/DL Calcium Level 10.2 MG/DL 9.1 MG/DL Alkaline Phosphatase 119 U/L 148 U/L Aspartate Amino Transf (AST/SGOT) 55 U/L 254 U/L Alanine Aminotransferase (ALT/SGPT) 66 U/L 232 U/L Total Bilirubin 1.3 MG/DL 1.4 MG/DL Sodium Level 136 MEQ/L 139 MEQ/L Potassium Level 3.1 MEQ/L 3.1 MEQ/L Chloride Level 100 MEQ/L 103 MEQ/L Carbon Dioxide Level 23.5 MEQ/L 24.5 MEQ/L Anion Gap 13 MEQ/L 12 MEQ/L Estimat Glomerular Filtration Rate 71 ML/MIN 100 ML/MIN Lipase 50 U/L Lactic Acid Level 1.7 mmol/L Differential Total Cells Counted 100 Neutrophils % (Manual) 91 % Band Neutrophils % 3 % Lymphocytes % 4 % Monocytes % 2 % Neutrophils # (Manual) 21.6 TH/MM3 Platelet Estimate NORMAL Platelet Morphology Comment NORMAL Red Cell Morphology Comment NORMAL Date/Time Source Procedure Growth Status 09/05/17 18:50 Blood Peripheral Aerobic Blood Culture Pending Received 09/05/17 18:50 Blood Peripheral Anaerobic Blood Culture Pending Received Physical Examination HEENT: PERRL; normocephalic; atraumatic; no jaundice. CHEST: CTA CARDIAC: RRR ABDOMEN: Soft, nondistended, right quadrant TTP worse in RUQ; no hepatosplenomegaly; bowel sounds are present in all four quadrants. EXTREMITIES: No clubbing, cyanosis, or edema. SKIN: Normal; no rash; no jaundice. ESTIMATION MANAGER: No focal deficits; alert and oriented times three. (Kaia Zamudio) Assessment and Plan Plan ASSESSMENT - RUQ pain, n/v, loose stool, elevated LFTs - n/v and diarrhea have improved. LFTs trending up. imaging 09/04 and labs were unremarkable. suspect gallbladder etiology, will get MRCP r/o obstruction - leukocytosis - WBC 27k, on abx PLAN - MRCP - monitor labs - clear liquids after MRCP - consider GS consult - continue abx - supportive care - further recs to follow This pt seen by myself and Dr Hancock and this note is written on his behalf (Kaia Zamudio) Physician Comments Agree with above assessment and plan. Will check MRCP and will follow accordingly. (Asa Hancock MD) Kaia Zamudio Sep 06, 2017 10:06 Asa Hancock MD Sep 06, 2017 10:26
--- NOTE | 2017-09-06 10:43 | HHI.PR ---
Addendum to Inpatient Note Addendum Reason: Additional Documentation Additional Information Pt complaining of right upper quadrant pain right under her breast. describes it as stabbing. Had nausea earlier but none now or vomiting. had a hard time taking deep breaths. On exam, very tender in the right upper quadrant, some guarding, taking shallow breaths. no wheezing, moving extremities, no peritoneal signs. awake and alert. Discussed w GI, plan for MRCP today and f/u results. May need GS consult. Currently on vanco, flagyl and aztreonam. F/u blood cx. has been afebrile this morning. Iona Kingsley MD Sep 06, 2017 10:42
[2017-09-06] MEDS ORDERED: oxyCODONE/ACETAMINOPHEN 7.5 MG/325 MG TAB PO PRN (10:45)
[2017-09-06] MEDS ORDERED: MORPHINE SULFATE 2 MG/ML INJ IV PUSH ONE (11:00)
[2017-09-06] MEDS: oxyCODONE/ACETAMINOPHEN 10 MG/325 MG TAB PO PRN ×2 (15:15→22:39)
--- NOTE | 2017-09-06 15:48 | RADRPT ---
EXAM DATE/TIME: 09/06/2017 14:05 [facility] COMPARISON: No previous studies available for comparison. INDICATIONS : Pain. MEDICAL HISTORY : Hypertension. Diabetes mellitus type 2. SURGICAL HISTORY : CABG Hysterectomy. Appendectomy. ENCOUNTER: Initial ACUITY: 2 day PAIN SCORE: 6/10 LOCATION: Upper abdomen TECHNIQUE: Multiplanar, multisequence magnetic resonance imaging of the abdomen was performed. High-resolution 3D dataset was utilized to reconstruct maximum-intensity projection (MIP) images. FINDINGS: INTRAHEPATIC BILE DUCTS: Within normal limits. No significant anatomical variant is present. EXTRAHEPATIC BILE DUCTS: The common bile duct measures 5.5 mm. No stone or filling defect is identified. GALLBLADDER: There are no large stones however significant sludge and/or gravel is noted. The gallbladder wall is thickened measuring 7 mm. Significant pericholecystic fluid is noted. LIVER: There is marked loss of signal intensity on opposed phased imaging. No focal hepatic lesions are note d. PANCREAS: The main pancreatic duct is normal in size. There is no significant anatomical variant. Signal inte nsity is within normal limits. No mass is visualized on this non-contrast exam. OTHER: The remaining visualized structures demonstrate no acute abnormality on this non-contrast exam. CONCLUSION: 1. Gallbladder sludge, gallbladder wall thickening and pericholecystic fluid characteristic of acute cholecystitis. 2. Normal caliber intra-and extra hepatic biliary ducts. 3. Advanced hepatic steatosis. Jeremiah Kelley MD on September 06, 2017 at 15:40 Board Certified Radiologist. This report was verified electronically.
[2017-09-06] MEDS: ONDANSETRON HCL 4 MG/2 ML VIAL IVP PRN (18:06)
[2017-09-06] MEDS ORDERED: TRIMETHOBENZAMIDE INJ 200 MG/2 ML VIAL IM PRN (22:15)
[2017-09-07] VITALS: BP 133/71; PULSE 89; RESP 20; TEMP 97.1; O2SAT 94
[2017-09-07] MEDS: metroNIDAZOLE 500 MG INJ 100 ML IV SCH ×3 (01:23→21:14)
[2017-09-07] MEDS: SODIUM CHLOR 0.9% 1000 ML INJ 1,000 ML IV SCH ×2 (02:00→11:07)
[2017-09-07] MEDS: AZTREONAM INJ 1,000 MG in SODIUM CHLORIDE 0.9% INJ 100 ML IV SCH ×3 (02:59→21:00)
[2017-09-07] MEDS: ONDANSETRON HCL 4 MG/2 ML VIAL IVP PRN ×2 (04:47→11:06)
[2017-09-07] MEDS ORDERED: MECLIZINE HCL 25 MG TAB PO ONE (05:15)
[2017-09-07] MEDS: oxyCODONE/ACETAMINOPHEN 10 MG/325 MG TAB PO PRN ×2 (06:35→14:16)
[2017-09-07 07:22] LABS: CREATININE 0.62 MG/DL (0.50-1.00)
[2017-09-07 08:00] VITALS: BP 141/80; PULSE 101; RESP 20; TEMP 98.6; O2SAT 97
[2017-09-07] MEDS ORDERED: PHARMACY ORDERED LAB ONE (08:45)
[2017-09-07] MEDS: VANCOMYCIN INJ 1,250 MG in SODIUM CHLOR 0.9% 250 ML INJ 250 ML IV SCH (09:36)
[2017-09-07] MEDS: DOCUSATE SODIUM 50 MG/SENNA 8.6 MG TAB PO SCH ×2 (09:37→23:44)
[2017-09-07] MEDS: SODIUM CHLORIDE 0.9% FLUSH 10 ML FLUSH IV FLUSH SCH ×2 (09:37→21:00)
[2017-09-07] MEDS: INSULIN ASPART SUPPLEMENTAL SCALE SQ SCH ×4 (09:47→21:00)
[2017-09-07 12:00] VITALS: BP 129/79; PULSE 95; RESP 22; TEMP 97; O2SAT 97
[2017-09-07] MEDS ORDERED: LIDOCAINE HCL 1% PF 5 ML SYRINGE OTHER ONE (12:00)
[2017-09-07] MEDS ORDERED: LACTATED RINGER'S 1000 ML INJ 1,000 ML IV ONE (12:00)
[2017-09-07] MEDS ORDERED: PHENYLEPH/NS 1000 MCG/10 ML SYR IV ONE (12:00)
[2017-09-07] MEDS ORDERED: SUCCINYLCHOLINE CHLORIDE 100 MG/5 ML SYRINGE IV PUSH ONE (12:00)
[2017-09-07] MEDS ORDERED: ePHEDrine/NS 25 MG/5 ML SYRINGE IV ONE (12:00)
[2017-09-07] MEDS ORDERED: DEXAMETHASONE SOD PHOS 4 MG/ML VIAL IV ONE (12:00)
[2017-09-07] MEDS ORDERED: ONDANSETRON HCL 4 MG/2 ML VIAL IV PUSH ONE (12:00)
[2017-09-07] MEDS ORDERED: ROCURONIUM INJ 50 MG/5 ML SYRINGE IV PUSH ONE (12:00)
[2017-09-07] MEDS ORDERED: PROPOFOL 200 MG/20 ML AMP IV ONE (12:00)
[2017-09-07] MEDS ORDERED: ESMOLOL HCL 100 MG/10 ML VIAL IV ONE (12:00)
--- NOTE | 2017-09-07 12:13 | HHI.PR ---
Subjective Remarks Feeling a bit better, doesn't have pain w taking deep breaths but does have right upper quadrant pain still. had nausea and vomited this morning. Objective Vitals Vital Signs Date Time Temp Pulse Resp B/P (MAP) Pulse Ox O2 Delivery O2 Flow Rate FiO2 09/07/17 08:00 98.6 101 20 141/80 (100) 97 09/07/17 00:00 97.1 89 20 133/71 (91) 94 09/06/17 20:00 97.8 103 20 137/70 (92) 93 09/06/17 19:34 95 Nasal Cannula 2.00 09/06/17 18:00 98.3 110 20 109/58 (75) 82 09/06/17 16:00 98.9 118 22 119/57 (77) 95 I/O 09/06/17 09/06/17 09/06/17 09/07/17 09/07/17 09/07/17 07:00 15:00 23:00 07:00 15:00 23:00 Intake Total 360 ml 1800 ml 480 ml 350 ml Output Total 600 ml Balance 360 ml 1800 ml -120 ml 350 ml Intake Oral 360 ml 1800 ml 480 ml IV Total 350 ml Output Urine Total 600 ml # Voids 3 4 # Bowel Movements 0 Result Diagram: 09/06/17 0723 09/07/17 0512 Imaging Last Impressions Cholangiopancreatography MRI 09/06/17 0000 Signed Impressions: Service Date/Time: Wednesday, September 06, 2017 14:05 - CONCLUSION: 1. Gallbladder sludge, gallbladder wall thickening and pericholecystic fluid characteristic of acute cholecystitis. 2. Normal caliber intra-and extra hepatic biliary ducts. 3. Advanced hepatic steatosis. Jeremiah Kelley MD Chest X-Ray 09/06/17 0000 Signed Impressions: Service Date/Time: Wednesday, September 06, 2017 06:07 - CONCLUSION: No acute disease. There is no evidence of pneumonia. Luis Felipe Mosley MD Objective Remarks GENERAL: Pleasant middle-aged female in no acute distress. HEENT: EOMI. CARDIOVASCULAR: Regular rate and rhythm. No obvious murmurs RESPIRATORY: No obvious rhonchi or wheezing. Clear to auscultation. GASTROINTESTINAL: Abdomen soft, moderate RUQ tenderness to palpation, nondistended. BS normal. MUSCULOSKELETAL: Extremities without edema. No obvious deformities. NEUROLOGICAL: alert and oriented. Moving both upper and lower extremities spontaneously. A/P Problem List: (1) Sepsis ICD Code: A41.9 - Sepsis, unspecified organism (2) Elevated LFTs ICD Code: R79.89 - Other specified abnormal findings of blood chemistry (3) Hypercalcemia ICD Code: E83.52 - Hypercalcemia (4) Hypokalemia ICD Code: E87.6 - Hypokalemia (5) Dehydration ICD Code: E86.0 - Dehydration (6) DM (diabetes mellitus) ICD Code: E11.9 - Type 2 diabetes mellitus without complications Assessment and Plan 1. Sepsis: Temp 100.6, HR 116, WBC 27.6, previously 13.9 on 09/04/17. Concern for developing cholecystitis. Blood Cultures neg x 2 days, Vanc/Zosyn in ER, currently on flagyl, aztreonam and vanco. IVF for hydration U/a negative. CXR neg. 2. Elevated LFTs: LFTs increased in comparison to labs from 09/04/17, +RUQ pain, MRCP concerning for acute cholecystitis. GS was consulted and pt will be going for cholecystectomy. GI also following 3. Hypercalcemia: Ca 10.2 on admission but now back to normal post hydration. 4. Hypokalemia: K+ 3.1, continue to replete. monitor labs 5. DM: Sliding scale w/ Accu-Cheks. Hold Metformin in light of n/v. 7. DVT Prophylaxis: SCD/Teds. Discharge Planning pt will be undergoing sx today Iona Kingsley MD Sep 07, 2017 12:13
[2017-09-07] MEDS ORDERED: POTASSIUM CHLOR 20 MEQ PREMIX 100 ML IV ONE (12:15)
[2017-09-07 12:16] LABS: AUTOMATED NEUTROPHIL # 14.3 TH/MM3 (1.8-7.7); BASOPHIL % 0.2 % (0.0-2.0); EOSINOPHIL # 0.2 TH/MM3 (0-0.4); HEMATOCRIT 35.4 % (35.0-46.0); HEMOGLOBIN 12.3 GM/DL (11.6-15.3); LYMPH % 8.3 % (9.0-44.0); LYMPHOCYTE # 1.4 TH/MM3 (1.0-4.8); MEAN CELL VOLUME 86.1 FL (80.0-100.0); MEAN CORPUSCULAR HEMOGLOBIN 29.8 PG (27.0-34.0); MEAN CORPUSCULAR HGB CONC 34.7 % (32.0-36.0); MEAN PLATELET VOLUME 8.6 FL (7.0-11.0); MONOCYTE # 0.8 TH/MM3 (0-0.9); NEUT % 85.5 % (16.0-70.0); PLATELET COUNT 311 TH/MM3 (150-450); RED BLOOD COUNT 4.12 MIL/MM3 (4.00-5.30); RED CELL DISTRIBUTION WIDTH 13.7 % (11.6-17.2); WHITE BLOOD COUNT 16.8 TH/MM3 (4.0-11.0)
[2017-09-07 12:28] LABS: ALBUMIN 2.4 GM/DL (3.4-5.0); ALT (GPT) 375 U/L (10-53); AST (GOT) 305 U/L (15-37); BICARBONATE 28.7 MEQ/L (21.0-32.0); BLOOD UREA NITROGEN 15 MG/DL (7-18); CALCIUM 8.8 MG/DL (8.5-10.1); CHLORIDE 98 MEQ/L (98-107); GLOMERULAR FILTRATION RATE 104 ML/MIN (>89); GLUCOSE,RANDOM 195 MG/DL (74-106); SODIUM (NA) 135 MEQ/L (136-145)
[2017-09-07 12:30] LABS: ALKALINE PHOSPHATASE 264 U/L (45-117); TOTAL PROTEIN 6.9 GM/DL (6.4-8.2)
--- NOTE | 2017-09-07 14:46 | MB ---
cc: MICHELLE MCKOY M.D. DATE OF CONSULTATION: 09/07/2017 REASON FOR CONSULTATION: Cholecystitis. BRIEF HISTORY This is a 52-year-old with multiple medical problems who presented to the emergency department a couple days ago for severe abdominal right-sided abdominal pain. It all started after drinking some eggnog on [place] that night she woke up with severe pain in the right chest. It was hard to breath, she has spent the whole day on Armstrong in bed only getting up to have something to drink and go to the bathroom. She had no appetite. She Forced herself to eat something. The pain persisted. She came to emergency apartment where she had an elevated white count of 13,000. She had an ultrasound which was read as normal. However retrospectively there is sludge in the gallbladder. CT scan did not demonstrate any pericholecystic changes but the gallbladder is very distended. Nevertheless, she was sent home and that was supposed to see her primary care doctor's slept through that appointment with the following day was sent back to the ER. She had now an elevated white count of the 27,000 with 92% neutrophils and had mildly elevated liver function tests. She had GI consultation and MRCP MRI demonstrated sludge and wall thickening and pericholecystic fluid consistent with cholecystitis. The bile ducts appeared normal in diameter and she had changes consistent with hepatic steatosis. PAST MEDICAL HISTORY: She has had prior abdominal surgeries laparoscopic appendectomy and hysterectomy up in [place]. She has had multiple other surgeries on her feet and ankles and had open heart surgery as a 3-year-old. ALLERGIES PENICILLIN SHE SAID SHE GOT HIVES. PAST MEDICAL HISTORY: Her previous medical history is significant for diabetes, hypertension, high cholesterol. MEDICATIONS: 1. She is her routine medication list includes insulin. 2. She also takes metformin 3. Bentyl 4. Zofran 5. pantoprazole 6. Zocor 7. lisinopril 8. amlodipine 9. Naproxen. REVIEW OF SYSTEMS Review of systems she denies unusual bleeding tendencies. She denies primary lung disorders. She has not made appointment with a local photographic aide since she has moved here from [place], she does see a nurse [facility] in [facility]. She has acid reflux disease. She has had previous upper endoscopies and colonoscopies and thinks she had colon polyps. She has not had strokes or seizures, thyroid gland problems. She does have anxiety and depression and takes a medication for that as well. PHYSICAL EXAMINATION: IN GENERAL: On physical exam she is short rotund woman who is in no acute distress. She is pleasant throughout the exam her temperature is 98.6, Pulse 101 Respiratory rate 20, blood pressure 141/80, oxygen saturations 97%. HEAD, EYES, EARS, NOSE, AND THROAT: She is normocephalic, atraumatic. Pupils are two to three round and sluggishly reactive to light. Her sclerae are anicteric. She has good dentition. Oral pharynx is clear with normal moist mucous membranes. NECK: Her neck is supple without adenopathy. She has midline trachea. No jugular distension. No carotid bruits. No palpable cervical lymphadenopathy. LUNGS: Her lungs are clear and equal anteriorly bilaterally. HEART: The heart sounds appear regular without obvious murmur, rub or gallop. Midline sternotomy scar is well-healed. BREAST/GENITALIA/RECTAL: Examinations are deferred. ABDOMEN: Her abdomen is obese, soft, nondistended, she is tender in the right upper quadrant to palpation without rebound or guarding. Laparoscopic scars are difficult to visualize. There is no obvious hernia, She has few normal bowel sounds without abdominal bruits. EXTREMITIES: Her extremities about her feet and ankles. She has multiple scars from prior surgeries. She has equal bilateral dorsalis pedis pulses and no significant edema. She has got equal bilateral radial pulses as well. Neurologically: She is awake, alert, oriented she has equal bilateral internet media planner strength and no gross motor or sensory deficit. LABORATORY FINDINGS: Laboratory values demonstrated the elevated white count went from 27 to 23. Her hemoglobin is 13, platelet count 311, bilirubin total bilirubin is 1.4, AST 254, ALT 232, phos 148, lipase was 50, creatinine 0.62, potassium is 31. Blood cultures of demonstrated no growth imaging studies are as discussed above. She has a chest x-ray which showed no acute disease. No evidence of pneumonia. ASSESSMENT/PLAN A 52-year-old obese woman with multiple medical problems including insulin-dependent diabetes, history of heart surgery at the age of [age] who has acute cholecystitis related to gallstone of the gallbladder sludge. I have recommended laparoscopic cholecystectomy. The procedure in detail plus risks of bleeding, infection injury to intra-abdominal contents including liver, bile duct or bowel, possible open surgery, DVT, pulmonary was and expectations for recovery. The patient understands and wished to proceed. I have contacted the operating room to get her on the operative schedule for today. She is already on IV antibiotics. Plans are made for some use of sequential compression device. Intraoperative cholangiogram will be performed due to her persistent elevation of liver function tests which may most likely related to her cholecystitis and hepatic steatosis, the cystic duct was easily accessible performed cholangiography if not we will not do any further harm in attempting a less than ideal situation. MD EHSAN Ahuja/amelia /11:38 AM /2:03 PM
[2017-09-07 16:00] VITALS: BP 131/73; PULSE 111; RESP 20; TEMP 99.2; O2SAT 91
--- NOTE | 2017-09-07 16:18 | HHI.GIFU ---
Subjective Remarks Pt is resting in bed, going to OR today for cholecystectomy (Lisset,Nimco KARLOS) Objective Vitals I&O Vital Signs Date Time Temp Pulse Resp B/P (MAP) Pulse Ox O2 Delivery O2 Flow Rate FiO2 09/07/17 12:00 97.0 95 22 129/79 (96) 97 09/07/17 08:00 98.6 101 20 141/80 (100) 97 09/07/17 07:40 18 09/07/17 00:00 97.1 89 20 133/71 (91) 94 09/06/17 20:00 97.8 103 20 137/70 (92) 93 09/06/17 19:34 95 Nasal Cannula 2.00 09/06/17 18:00 98.3 110 20 109/58 (75) 82 I/O 09/06/17 09/06/17 09/06/17 09/07/17 09/07/17 09/07/17 07:00 15:00 23:00 07:00 15:00 23:00 Intake Total 360 ml 1800 ml 480 ml 350 ml Output Total 600 ml Balance 360 ml 1800 ml -120 ml 350 ml Intake Oral 360 ml 1800 ml 480 ml IV Total 350 ml Output Urine Total 600 ml # Voids 3 4 # Bowel Movements 0 Laboratory Laboratory Tests Test 09/07/17 05:12 09/07/17 09:10 09/07/17 11:20 Creatinine 0.62 0.60 Estimat Glomerular Filtration Rate 100 104 Vancomycin Level Trough 5.4 White Blood Count 16.8 Red Blood Count 4.12 Hemoglobin 12.3 Hematocrit 35.4 Mean Corpuscular Volume 86.1 Mean Corpuscular Hemoglobin 29.8 Mean Corpuscular Hemoglobin Concent 34.7 Red Cell Distribution Width 13.7 Platelet Count 311 Mean Platelet Volume 8.6 Neutrophils (%) (Auto) 85.5 Lymphocytes (%) (Auto) 8.3 Monocytes (%) (Auto) 5.0 Eosinophils (%) (Auto) 1.0 Basophils (%) (Auto) 0.2 Neutrophils # (Auto) 14.3 Lymphocytes # (Auto) 1.4 Monocytes # (Auto) 0.8 Eosinophils # (Auto) 0.2 Basophils # (Auto) 0.0 CBC Comment DIFF FINAL Differential Comment Blood Urea Nitrogen 15 Random Glucose 195 Total Protein 6.9 Albumin 2.4 Calcium Level 8.8 Alkaline Phosphatase 264 Aspartate Amino Transf (AST/SGOT) 305 Alanine Aminotransferase (ALT/SGPT) 375 Total Bilirubin 2.0 Sodium Level 135 Potassium Level 3.0 Chloride Level 98 Carbon Dioxide Level 28.7 Anion Gap 8 Date/Time Source Procedure Growth Status 09/05/17 18:50 Blood Peripheral Aerobic Blood Culture - Preliminary NO GROWTH IN 2 DAYS Resulted 09/05/17 18:50 Blood Peripheral Anaerobic Blood Culture - Preliminary NO GROWTH IN 2 DAYS Resulted Imaging Last Impressions Cholangiopancreatography MRI 09/06/17 0000 Signed Impressions: Service Date/Time: Wednesday, September 06, 2017 14:05 - CONCLUSION: 1. Gallbladder sludge, gallbladder wall thickening and pericholecystic fluid characteristic of acute cholecystitis. 2. Normal caliber intra-and extra hepatic biliary ducts. 3. Advanced hepatic steatosis. Jeremiah Kelley MD Chest X-Ray 09/06/17 0000 Signed Impressions: Service Date/Time: Wednesday, September 06, 2017 06:07 - CONCLUSION: No acute disease. There is no evidence of pneumonia. Luis Felipe Mosley MD Physical Exam HEENT: normocephalic; atraumatic; no jaundice. CHEST: Chest is clear to auscultation and percussion. CARDIAC: Regular rate and rhythm ABDOMEN: Soft, nondistended, RUQ tenderness; bowel sounds are present in all four quadrants. EXTREMITIES: No clubbing, cyanosis, or edema. SKIN: Normal; no rash; no jaundice. SENIOR PROCUREMENT SPECIALIST: No focal deficits; alert and oriented times three. (Nimco Darling) Assessment and Plan Plan ASSESSMENT - RUQ pain, n/v, loose stool, elevated LFTs - n/v and diarrhea have improved. LFTs trending up. imaging 09/04 and labs were unremarkable. suspect gallbladder etiology, MRCP showed acute cholecystitis, no biliary obstruction Going to OR today - leukocytosis - trending down on abx PLAN - NPO - OR today for cholecystectomy - continue abx - supportive care - further recs to follow This pt seen by myself and Dr Hancock and this note is written on his behalf (Nimco Darling) Physician Comments Seen and examined, plan as above. (Asa Hancock MD) Nimco Darling Sep 07, 2017 16:18 Asa Hancock MD Sep 07, 2017 16:26
[2017-09-07] MEDS: POTASSIUM CHLOR 20 MEQ PREMIX 100 ML IV SCH ×2 (16:58→16:59)
[2017-09-07] MEDS ORDERED: VANCOMYCIN INJ 1,750 MG in SODIUM CHLORID 0.9% 500 ML INJ 500 ML IV SCH (18:00)
[2017-09-07] MEDS ORDERED: LACTATED RINGER'S 1000 ML IV PRN (18:15)
[2017-09-07] MEDS ORDERED: SODIUM CHLORID 0.9% 500 ML IV PRN (18:15)
[2017-09-07] MEDS ORDERED: POVIDONE IODINE 5% (ANTISEPSIS KIT) 4 APPLICATIONS EACH NARE PRN (18:15)
[2017-09-07] MEDS ORDERED: CHLORHEXIDINE GLUCONATE 2 % 1 PACK (2 CLOTHS) TOPICAL PRN (18:15)
[2017-09-07] MEDS ORDERED: BUPIVACAINE/EPINEPHRINE 0.25% PF 30 ML VIAL ONE (18:21)
[2017-09-07 20:00] VITALS: BP 141/87; PULSE 111; RESP 18; TEMP 96.7; O2SAT 94
[2017-09-07] MEDS ORDERED: MORPHINE SULFATE 4 MG/ML INJ ONE (20:03)
[2017-09-07] MEDS ORDERED: MIDAZOLAM HCL 2 MG/2 ML VIAL ONE (20:03)
--- NOTE | 2017-09-07 20:33 | PD.OP ---
Operative Report Date of Surgery: Sep 07, 2017 Preoperative Diagnosis: severe cholecystitis Postoperative Diagnosis: same with gangrenous changes Procedure: lap federica Anesthesia: general Surgeon: Raphael Alcaraz [employer] Millwright(s): Festus Operation and Findings: severe gangrenous cholecystitis Gb to pathology. EBL 100 ml. 10 wolof fluted drain. Raphael Alcaraz MD Sep 07, 2017 20:33
[2017-09-07] MEDS ORDERED: ACETAMINOPHEN/HYDROcodone 325 MG/5 MG TAB PO PRN (20:45)
[2017-09-07] MEDS ORDERED: Post-op Orders (for Pharmacy) XX ONE (20:45)
[2017-09-07] MEDS ORDERED: DO NOT ADM ANY ANTICOAGULANT DRUGS PRN (20:45)
[2017-09-07] MEDS: LACTATED RINGER'S 1000 ML INJ 1,000 ML IV SCH (21:00)
--- NOTE | 2017-09-07 21:32 | MP ---
cc: MICHELLE MCKOY MD DATE OF SURGERY 09/07/17 PREOPERATIVE DIAGNOSIS Severe cholecystitis POSTOPERATIVE DIAGNOSIS Severe cholecystitis plus gangrenous changes. PROCEDURE Laparoscopic cholecystectomy. SURGEON Dr. Ulises Mckoy ANESTHESIA General INDICATIONS This is an unfortunate 52-year-old woman with multiple medical problems who developed severe right upper quadrant pain after drinking eggnog on September 01. She was seen in the emergency room the and ultrasound and CT scan were done. She definitely had sludge in her gallbladder and a big distended gallbladder, but no inflammatory changes and she was sent home. She came back in severe pain, elevated white count and an MRCP showed pericholecystic fluid and inflammation of the gallbladder wall. Surgical consultation was obtained. Recommendation was made for laparoscopic cholecystectomy. INTRAOPERATIVE FINDINGS Severe gangrenous cholecystitis. Gallbladder removed and sent pathology. It was determined not to be safe to attempt intraoperative cholangiography due to the severe inflammatory gangrenous changes. ESTIMATED BLOOD LOSS 100 mL. DRAINS A 10-Luxembourgish fluted drain placed in subhepatic position. PROCEDURE IN DETAIL The patient was identified as Shira Douglas, taken to the operating room and placed in supine position. Sequential compression devices were placed bilateral lower extremities. Following induction of adequate general endotracheal anesthesia, the patient's abdomen was prepped and draped in usual sterile fashion with Betadine. Time-out procedure was performed. Following completion of time-out procedure to everyone's satisfaction within the room, a site was selected for initial trocar placement superior and right lateral to the umbilicus due to the rotunded nature of her abdomen. Local anesthetic was placed. Incision was carried out with a scalpel. Dissection continued posteriorly through generous subcutaneous fatty tissue layer. Appendiceal retractors were required to identify the anterior fascia. This was incised in a transverse fashion and underlying muscle was spread with a Shanon clamp. The posterior fascia was retracted anteriorly with a Shanon clamp and incised with a scalpel allowing for entry into the peritoneal cavity which was confirmed with the surgeon's finger. The applied medical balloon Pamella trocar was placed in the peritoneal cavity, its balloon inflated to insufflation until level of 15 mmHg ensued. The patient was placed in reverse Trendelenberg position, turned to the left and three upper abdominal 5 mm trocars were placed in the peritoneal cavity under direct laparoscopic view after incision of the skin with a scalpel. Two in the upper midline, one in the right lateral abdomen. Inflammatory rind of omentum covered the gallbladder. This was taken down with blunt dissection using suction irrigation device. Gangrenous gallbladder was uncovered. Gangrenous changes were noted also in the right lateral aspect of the liver with exudative gangrenous material located there. Using suction dissection and blunt dissection and rebecca flex liver retractor on the inflammatory fat, all inflammatory tissue from the undersurface of the gallbladder was able to be removed. Gallbladder is then removed from the gallbladder fossa in a dome down technique using the harmonic scalpel and suction dissection. This allowed for isolation of what appeared to be cystic duct, cystic arterial what appeared to be a cystic artery was divided at the junction with the gallbladder and then Endolooped with a 0-PDS Endoloop. 0-PDS Endoloop was then placed across what appeared to be cystic duct and the gallbladder was amputated just proximal to this, placed into an Endo retriever bag and removed through the camera port incision site, passed off the field for pathologic evaluation. Right upper quadrant was irrigated copiously with saline and suctioned out. The gallbladder fossa had irritation. Surgicel powder was then placed in the gallbladder fossa. The cystic duct ligature remained intact. There was no obvious bleeding from the gallbladder fossa. No obvious bilious drainage either. Trocars are removed under direct visualization. The was no evidence of bleeding from trocar sites. The abdomen was actively desufflated through the camera port which was then removed. Posterior fascia was identified and closed with a single [id number] 0 Vicryl suture. Anterior fascia was closed with a couple interrupted 0 Vicryl sutures. Port sites were irrigated copiously with saline and skin incisions were approximated with 4-0 Monocryl subcuticular sutures. Dressings were applied with Mastisol and 1/2" brown Steri-Strips. ADDENDUM Prior to removal of the trocars, a 10-Luxembourgish fluted drain was placed through the right lateral trocar site in the subhepatic position, held in place with a 3-0 nylon drain stitch. A dry dressing was placed around the drain exit site. The patient tolerated the procedure without apparent complication. Sponge, needle and instrument counts were correct and the end of the case. MD EHSAN Ahuja/ /8:15 PM /9:04 PM
[2017-09-07] MEDS ORDERED: LACTATED RINGER S IV SCH (21:45)
--- NOTE | 2017-09-07 21:49 | EKG ---
Date Performed: 09/07/2017 Time Performed: 18:11:21 PTAGE: 52 years EKG: SINUS TACHYCARDIA NONSPECIFIC ST & T-WAVE ABNORMALITY ABNORMAL RHYTHM ECG PREVIOUS TRACING : 09/04/2017 04.19 Compared to the previous tracing, non-specific ST/T wave ch angestella now noted DOCTOR: Halmet Flanagan Interpretating Date/Time 09/07/2017 21:48:13
[2017-09-07 23:05] VITALS: O2SAT 93
[2017-09-08] VITALS (10 sets, daily range): BP systolic 133–146; BP diastolic 75–82; PULSE 68–103; RESP 16–18; TEMP 96.8–98.5; O2SAT 95–99
[2017-09-08] MEDS: metroNIDAZOLE 500 MG INJ 100 ML IV SCH ×3 (04:03→16:03)
[2017-09-08] MEDS: AZTREONAM INJ 1,000 MG in SODIUM CHLORIDE 0.9% INJ 100 ML IV SCH ×3 (05:05→19:35)
[2017-09-08 06:03] LABS: AUTOMATED NEUTROPHIL # 10.9 TH/MM3 (1.8-7.7); BASOPHIL % 0.3 % (0.0-2.0); EOSINOPHIL % 0.2 % (0.0-4.0); HEMATOCRIT 34.1 % (35.0-46.0); HEMOGLOBIN 11.8 GM/DL (11.6-15.3); LYMPH % 6.1 % (9.0-44.0); LYMPHOCYTE # 0.7 TH/MM3 (1.0-4.8); MEAN CELL VOLUME 86.2 FL (80.0-100.0); MEAN CORPUSCULAR HEMOGLOBIN 29.8 PG (27.0-34.0); MEAN CORPUSCULAR HGB CONC 34.5 % (32.0-36.0); MEAN PLATELET VOLUME 8.5 FL (7.0-11.0); MONO % 3.6 % (0.0-8.0); MONOCYTE # 0.4 TH/MM3 (0-0.9); NEUT % 89.8 % (16.0-70.0); PLATELET COUNT 313 TH/MM3 (150-450); RED BLOOD COUNT 3.95 MIL/MM3 (4.00-5.30); WHITE BLOOD COUNT 12.2 TH/MM3 (4.0-11.0)
[2017-09-08 06:23] LABS: ALT (GPT) 284 U/L (10-53); AST (GOT) 156 U/L (15-37); BICARBONATE 28.2 MEQ/L (21.0-32.0); BLOOD UREA NITROGEN 13 MG/DL (7-18); CALCIUM 8.2 MG/DL (8.5-10.1); CHLORIDE 103 MEQ/L (98-107); CREATININE 0.61 MG/DL (0.50-1.00); GLOMERULAR FILTRATION RATE 102 ML/MIN (>89); GLUCOSE,RANDOM 207 MG/DL (74-106); MAGNESIUM 1.9 MG/DL (1.5-2.5); SODIUM (NA) 139 MEQ/L (136-145)
[2017-09-08 06:25] LABS: ALKALINE PHOSPHATASE 281 U/L (45-117); TOTAL BILIRUBIN ADULT 1.3 MG/DL (0.2-1.0); TOTAL PROTEIN 6.3 GM/DL (6.4-8.2)
[2017-09-08] MEDS: LACTATED RINGER'S 1000 ML INJ 1,000 ML IV SCH ×2 (06:31→16:08)
[2017-09-08] MEDS: oxyCODONE/ACETAMINOPHEN 10 MG/325 MG TAB PO PRN (06:44)
[2017-09-08] MEDS: SODIUM CHLORIDE 0.9% FLUSH 10 ML FLUSH IV FLUSH SCH ×2 (09:00→19:37)
[2017-09-08] MEDS: DOCUSATE SODIUM 50 MG/SENNA 8.6 MG TAB PO SCH ×2 (09:48→19:35)
[2017-09-08] MEDS: INSULIN ASPART SUPPLEMENTAL SCALE SQ SCH ×4 (09:49→21:05)
[2017-09-08] MEDS: VANCOMYCIN INJ 1,750 MG in SODIUM CHLORID 0.9% 500 ML INJ 500 ML IV SCH ×2 (09:50→22:06)
--- NOTE | 2017-09-08 09:57 | HHI.PR ---
Subjective Subjective Notes feels better, mild pain, tolerating po Objective Vitals/I&O Vital Signs Date Time Temp Pulse Resp B/P (MAP) Pulse Ox O2 Delivery O2 Flow Rate FiO2 09/08/17 08:00 98.1 92 17 135/79 (97) 96 09/08/17 06:40 Nasal Cannula 5.00 09/07/17 23:05 35 Labs Laboratory Tests Test 09/07/17 11:20 09/08/17 04:09 White Blood Count 16.8 12.2 Red Blood Count 4.12 3.95 Hemoglobin 12.3 11.8 Hematocrit 35.4 34.1 Mean Corpuscular Volume 86.1 86.2 Mean Corpuscular Hemoglobin 29.8 29.8 Mean Corpuscular Hemoglobin Concent 34.7 34.5 Red Cell Distribution Width 13.7 14.0 Platelet Count 311 313 Mean Platelet Volume 8.6 8.5 Neutrophils (%) (Auto) 85.5 89.8 Lymphocytes (%) (Auto) 8.3 6.1 Monocytes (%) (Auto) 5.0 3.6 Eosinophils (%) (Auto) 1.0 0.2 Basophils (%) (Auto) 0.2 0.3 Neutrophils # (Auto) 14.3 10.9 Lymphocytes # (Auto) 1.4 0.7 Monocytes # (Auto) 0.8 0.4 Eosinophils # (Auto) 0.2 0.0 Basophils # (Auto) 0.0 0.0 CBC Comment DIFF FINAL DIFF FINAL Differential Comment Blood Urea Nitrogen 15 13 Creatinine 0.60 0.61 Random Glucose 195 207 Total Protein 6.9 6.3 Albumin 2.4 2.0 Calcium Level 8.8 8.2 Alkaline Phosphatase 264 281 Aspartate Amino Transf (AST/SGOT) 305 156 Alanine Aminotransferase (ALT/SGPT) 375 284 Total Bilirubin 2.0 1.3 Sodium Level 135 139 Potassium Level 3.0 3.5 Chloride Level 98 103 Carbon Dioxide Level 28.7 28.2 Anion Gap 8 8 Estimat Glomerular Filtration Rate 104 102 Magnesium Level 1.9 Date/Time Source Procedure Growth Status 09/05/17 18:50 Blood Peripheral Aerobic Blood Culture - Preliminary NO GROWTH IN 2 DAYS Resulted 09/05/17 18:50 Blood Peripheral Anaerobic Blood Culture - Preliminary NO GROWTH IN 2 DAYS Resulted Abdomen: Non-distended, Post-op tenderness, BS normal Narrative Exam ELEN with minimal output, light green Wound Wound : Wound Location: Abdomen Appearance: Clean & Dry A/P Assessment and Plan POD1 lap federica for gangrenous cholecystitis stable post op supportive care follow labs, LFTS still elevated but likely from gangrenous cholecystitis/liver irritation. Tate Prakash MD Sep 08, 2017 09:57
--- NOTE | 2017-09-08 11:12 | HHI.PR ---
Subjective Remarks Pt feeling better. Tolerating diet so far, had a BM. no nausea or vomiting. w movement pain does go up to a 7/10 Objective Vitals Vital Signs Date Time Temp Pulse Resp B/P (MAP) Pulse Ox O2 Delivery O2 Flow Rate FiO2 09/08/17 09:48 Nasal Cannula 5.00 09/08/17 08:00 98.1 92 17 135/79 (97) 96 09/08/17 06:40 94 Nasal Cannula 5.00 09/08/17 04:00 97.7 97 18 137/82 (100) 96 09/08/17 03:47 100 09/08/17 00:00 96.8 103 18 146/77 (100) 95 09/07/17 23:05 93 Venturi Mask 6.00 35 09/07/17 21:45 112 30 155/78 (103) 92 Venturi Mask 6 50 09/07/17 21:30 98.9 109 27 156/86 (109) 92 Venturi Mask 6 50 09/07/17 21:15 110 21 150/79 (102) 96 Nasal Cannula 4 09/07/17 21:00 110 22 156/89 (111) 96 Nasal Cannula 4 09/07/17 20:50 100.8 112 22 146/86 (106) 100 Simple Mask 15 09/07/17 20:00 96.7 111 18 141/87 (105) 94 09/07/17 16:00 99.2 111 20 131/73 (92) 91 09/07/17 12:00 97.0 95 22 129/79 (96) 97 I/O 09/07/17 09/07/17 09/07/17 09/08/17 09/08/17 09/08/17 07:00 15:00 23:00 07:00 15:00 23:00 Intake Total 480 ml 350 ml 3700 ml 517.5 ml Output Total 600 ml 630 ml 340 ml Balance -120 ml 350 ml 3070 ml 177.5 ml Intake Oral 480 ml 1600 ml IV Total 350 ml 2100 ml 517.5 ml Output Urine Total 600 ml 500 ml 300 ml Drainage Total 30 ml 40 ml Estimated Blood Loss 100 ml # Voids 3 # Bowel Movements 0 1 Result Diagram: 09/08/17 0409 09/08/17 0409 Imaging Last Impressions Cholangiopancreatography MRI 09/06/17 0000 Signed Impressions: Service Date/Time: Wednesday, September 06, 2017 14:05 - CONCLUSION: 1. Gallbladder sludge, gallbladder wall thickening and pericholecystic fluid characteristic of acute cholecystitis. 2. Normal caliber intra-and extra hepatic biliary ducts. 3. Advanced hepatic steatosis. Jeremiah Kelley MD Chest X-Ray 09/06/17 0000 Signed Impressions: Service Date/Time: Wednesday, September 06, 2017 06:07 - CONCLUSION: No acute disease. There is no evidence of pneumonia. Luis Felipe Mosley MD Objective Remarks GENERAL: Pleasant middle-aged female in no acute distress. HEENT: EOMI. CARDIOVASCULAR: Regular rate and rhythm. No obvious murmurs RESPIRATORY: No obvious rhonchi or wheezing. Clear to auscultation. GASTROINTESTINAL: Abdomen soft, appropriately tender post op, sterries in place. drain in place w minimal serous drainage MUSCULOSKELETAL: Extremities without edema. No obvious deformities. NEUROLOGICAL: alert and oriented. Moving both upper and lower extremities spontaneously. Trying to scoop herself up in bed A/P Problem List: (1) Sepsis ICD Code: A41.9 - Sepsis, unspecified organism (2) Elevated LFTs ICD Code: R79.89 - Other specified abnormal findings of blood chemistry (3) Hypercalcemia ICD Code: E83.52 - Hypercalcemia (4) Hypokalemia ICD Code: E87.6 - Hypokalemia (5) Dehydration ICD Code: E86.0 - Dehydration (6) DM (diabetes mellitus) ICD Code: E11.9 - Type 2 diabetes mellitus without complications Assessment and Plan 1. Sepsis/gangrenous cholecystitis post op day#1: Temp 100.6, HR 116, WBC 27.6 , previously 13.9 on 09/04/17. Blood Cultures neg x 3 days, Vanc/Zosyn in ER , currently on flagyl, aztreonam and vanco. IVF for hydration U/a negative. CXR neg. 2. Elevated LFTs: trending down but still elevated. monitor. 3. Hypercalcemia: resolved. 4. Hypokalemia: resolved. 5. DM: Sliding scale w/ Accu-Cheks. resume Metformin as an outpatient. 7. DVT Prophylaxis: SCD/Teds/encourage ambulation. Discharge Planning post day 1, continue to monitor and will need GS clearance for discharge discussed w Dr. Prakash, pt will most likely be here for a couple more days Iona Kingsley MD Sep 08, 2017 11:12
--- NOTE | 2017-09-08 12:07 | HHI.GIFU ---
Subjective Remarks Abdominal pain diminished except for around surgical site Large BM today normal, formed, resolving lower abdominal cramping Afebrile today No active bleeding (Sara Rowley) Objective Vitals I&O Vital Signs Date Time Temp Pulse Resp B/P (MAP) Pulse Ox O2 Delivery O2 Flow Rate FiO2 09/08/17 12:00 97.8 88 17 133/75 (94) 95 09/08/17 11:45 96 Nasal Cannula 3.00 09/08/17 09:48 Nasal Cannula 5.00 09/08/17 08:00 98.1 92 17 135/79 (97) 96 09/08/17 06:40 94 Nasal Cannula 5.00 09/08/17 04:00 97.7 97 18 137/82 (100) 96 09/08/17 03:47 100 09/08/17 00:00 96.8 103 18 146/77 (100) 95 09/07/17 23:05 93 Venturi Mask 6.00 35 09/07/17 21:45 112 30 155/78 (103) 92 Venturi Mask 6 50 09/07/17 21:30 98.9 109 27 156/86 (109) 92 Venturi Mask 6 50 09/07/17 21:15 110 21 150/79 (102) 96 Nasal Cannula 4 09/07/17 21:00 110 22 156/89 (111) 96 Nasal Cannula 4 09/07/17 20:50 100.8 112 22 146/86 (106) 100 Simple Mask 15 09/07/17 20:00 96.7 111 18 141/87 (105) 94 09/07/17 16:00 99.2 111 20 131/73 (92) 91 I/O 09/07/17 09/07/17 09/07/17 09/08/17 09/08/17 09/08/17 07:00 15:00 23:00 07:00 15:00 23:00 Intake Total 480 ml 350 ml 3700 ml 517.5 ml Output Total 600 ml 630 ml 340 ml Balance -120 ml 350 ml 3070 ml 177.5 ml Intake Oral 480 ml 1600 ml IV Total 350 ml 2100 ml 517.5 ml Output Urine Total 600 ml 500 ml 300 ml Drainage Total 30 ml 40 ml Estimated Blood Loss 100 ml # Voids 3 # Bowel Movements 0 1 Laboratory Laboratory Tests Test 09/08/17 04:09 White Blood Count 12.2 Red Blood Count 3.95 Hemoglobin 11.8 Hematocrit 34.1 Mean Corpuscular Volume 86.2 Mean Corpuscular Hemoglobin 29.8 Mean Corpuscular Hemoglobin Concent 34.5 Red Cell Distribution Width 14.0 Platelet Count 313 Mean Platelet Volume 8.5 Neutrophils (%) (Auto) 89.8 Lymphocytes (%) (Auto) 6.1 Monocytes (%) (Auto) 3.6 Eosinophils (%) (Auto) 0.2 Basophils (%) (Auto) 0.3 Neutrophils # (Auto) 10.9 Lymphocytes # (Auto) 0.7 Monocytes # (Auto) 0.4 Eosinophils # (Auto) 0.0 Basophils # (Auto) 0.0 CBC Comment DIFF FINAL Differential Comment Blood Urea Nitrogen 13 Creatinine 0.61 Random Glucose 207 Total Protein 6.3 Albumin 2.0 Calcium Level 8.2 Magnesium Level 1.9 Alkaline Phosphatase 281 Aspartate Amino Transf (AST/SGOT) 156 Alanine Aminotransferase (ALT/SGPT) 284 Total Bilirubin 1.3 Sodium Level 139 Potassium Level 3.5 Chloride Level 103 Carbon Dioxide Level 28.2 Anion Gap 8 Estimat Glomerular Filtration Rate 102 Date/Time Source Procedure Growth Status 09/05/17 18:50 Blood Peripheral Aerobic Blood Culture - Preliminary NO GROWTH IN 3 DAYS Resulted 09/05/17 18:50 Blood Peripheral Anaerobic Blood Culture - Preliminary NO GROWTH IN 3 DAYS Resulted Imaging Last Impressions Cholangiopancreatography MRI 09/06/17 0000 Signed Impressions: Service Date/Time: Wednesday, September 06, 2017 14:05 - CONCLUSION: 1. Gallbladder sludge, gallbladder wall thickening and pericholecystic fluid characteristic of acute cholecystitis. 2. Normal caliber intra-and extra hepatic biliary ducts. 3. Advanced hepatic steatosis. Jeremiah Kelley MD Chest X-Ray 09/06/17 0000 Signed Impressions: Service Date/Time: Wednesday, September 06, 2017 06:07 - CONCLUSION: No acute disease. There is no evidence of pneumonia. Luis Felipe Mosley MD Physical Exam HEENT: normocephalic; atraumatic; no jaundice. CHEST: Chest is clear to auscultation and percussion. CARDIAC: Regular rate and rhythm ABDOMEN: Soft, nondistended, RUQ tenderness; bowel sounds are present in all four quadrants. EXTREMITIES: No clubbing, cyanosis, or edema. SKIN: Normal; no rash; no jaundice. [employer]ING [employer]ER: No focal deficits; alert and oriented times three. (Sara Rwoley) Assessment and Plan Plan ASSESSMENT - RUQ pain, n/v, loose stool, resolved, normal BM this a.m. which has alleviated of any abdominal cramping. Right upper quadrant pain continues to lessen, none with light palpation elevated LFTs - continuing to decrease, bilirubin now 1.3, LFTs dropping daily , 12.2 WBC count Anemia, stable at 11.8 MRCP showed acute cholecystitis, no biliary obstruction Hepatic steatosis PLAN - Continue to monitor labs with special attention to hemoglobin and LFTs, - supportive care - further recs to follow, probable sign out after reviewing labs tomorrow This pt seen by myself and Dr Hancock, note is written on his behalf (Sara Rowley) Physician Comments Stable at the current time from GI point of view. Will sign off for now, please notify us if needed. (Asa Hancock MD) Sara Rowley Sep 08, 2017 12:07 Asa Hancock MD Sep 08, 2017 17:52
[2017-09-08] MEDS: ACETAMINOPHEN/HYDROcodone 325 MG/5 MG TAB PO PRN (16:03)
[2017-09-08] MEDS: INSULIN DETEMIR 100 UNITS/ML VIAL SQ SCH (19:37)
[2017-09-09] VITALS (10 sets, daily range): BP systolic 113–149; BP diastolic 53–92; PULSE 66–85; RESP 16–18; TEMP 98.1–99.4; O2SAT 91–98
[2017-09-09] MEDS: metroNIDAZOLE 500 MG INJ 100 ML IV SCH ×3 (02:23→16:50)
[2017-09-09] MEDS: LACTATED RINGER'S 1000 ML INJ 1,000 ML IV SCH ×3 (02:23→21:29)
[2017-09-09] MEDS ORDERED: PHARMACY ORDERED LAB ONE ×2 (05:45→10:45)
[2017-09-09] MEDS: AZTREONAM INJ 1,000 MG in SODIUM CHLORIDE 0.9% INJ 100 ML IV SCH ×3 (05:55→21:26)
[2017-09-09] MEDS: DOCUSATE SODIUM 50 MG/SENNA 8.6 MG TAB PO SCH ×3 (08:18→21:00)
[2017-09-09] MEDS: SODIUM CHLORIDE 0.9% FLUSH 10 ML FLUSH IV FLUSH SCH ×2 (09:00→21:27)
[2017-09-09 09:05] LABS: AUTOMATED NEUTROPHIL # 6.3 TH/MM3 (1.8-7.7); BASOPHIL % 0.3 % (0.0-2.0); EOSINOPHIL # 0.4 TH/MM3 (0-0.4); EOSINOPHIL % 3.5 % (0.0-4.0); HEMATOCRIT 31.8 % (35.0-46.0); HEMOGLOBIN 10.7 GM/DL (11.6-15.3); LYMPH % 27.7 % (9.0-44.0); LYMPHOCYTE # 2.8 TH/MM3 (1.0-4.8); MEAN CORPUSCULAR HEMOGLOBIN 28.9 PG (27.0-34.0); MEAN CORPUSCULAR HGB CONC 33.6 % (32.0-36.0); MEAN PLATELET VOLUME 7.9 FL (7.0-11.0); MONO % 6.5 % (0.0-8.0); MONOCYTE # 0.7 TH/MM3 (0-0.9); PLATELET COUNT 348 TH/MM3 (150-450); RED CELL DISTRIBUTION WIDTH 14.3 % (11.6-17.2); WHITE BLOOD COUNT 10.2 TH/MM3 (4.0-11.0)
[2017-09-09] MEDS: INSULIN ASPART SUPPLEMENTAL SCALE SQ SCH ×4 (09:05→21:00)
[2017-09-09 09:31] LABS: ALBUMIN 2.1 GM/DL (3.4-5.0); ALKALINE PHOSPHATASE 305 U/L (45-117); ALT (GPT) 232 U/L (10-53); AST (GOT) 122 U/L (15-37); BICARBONATE 31.6 MEQ/L (21.0-32.0); BLOOD UREA NITROGEN 11 MG/DL (7-18); CALCIUM 8.1 MG/DL (8.5-10.1); CHLORIDE 102 MEQ/L (98-107); GLOMERULAR FILTRATION RATE 87 ML/MIN (>89); GLUCOSE,RANDOM 155 MG/DL (74-106); MAGNESIUM 1.9 MG/DL (1.5-2.5); SODIUM (NA) 141 MEQ/L (136-145); TOTAL BILIRUBIN ADULT 0.6 MG/DL (0.2-1.0); TOTAL PROTEIN 6.1 GM/DL (6.4-8.2)
[2017-09-09 09:56] LABS: BANDS 2 % (0-6); LYMPHOCYTES 29 % (9-44); METAMYELOCYTES 1 % (0-1); MONOCYTES 5 % (0-8); MYELOCYTES 1 % (0-0); NEUTROPHIL # MANUAL DIFF 6.3 TH/MM3 (1.8-7.7); POLYS (SEG NEUTROPHILS) 58 % (16-70)
--- NOTE | 2017-09-09 10:50 | HHI.PR ---
Subjective Remarks Pt states pain is controlled. has been ambulating to and from the bathroom w no difficulty. states she is incontinent and was diagnosed since 2001 and needs diapers and apparently the nursing staff has been giving her trouble with that and would like for me to put an order to let them know it is ok to provide diapers. No nausea or vomiting. No CP/SOB Objective Vitals Vital Signs Date Time Temp Pulse Resp B/P (MAP) Pulse Ox O2 Delivery O2 Flow Rate FiO2 09/09/17 08:00 98.5 73 18 139/60 (86) 96 09/09/17 04:31 98.7 66 16 135/82 (99) 93 09/09/17 04:00 69 09/09/17 00:41 98.1 74 16 149/92 (111) 98 09/09/17 00:06 83 09/08/17 20:00 98.0 68 16 134/81 (98) 97 09/08/17 20:00 98.0 68 16 134/81 (98) 97 09/08/17 20:00 71 09/08/17 18:52 99 Nasal Cannula 3.00 09/08/17 16:00 98.5 79 18 144/75 (98) 99 09/08/17 14:02 95 Nasal Cannula 5.00 09/08/17 12:00 97.8 88 17 133/75 (94) 95 09/08/17 11:45 96 Nasal Cannula 3.00 I/O 09/08/17 09/08/17 09/08/17 09/09/17 09/09/17 09/09/17 07:00 15:00 23:00 07:00 15:00 23:00 Intake Total 517.5 ml 617.5 ml 540 ml 717.5 ml Output Total 340 ml 0 ml 0 ml Balance 177.5 ml 617.5 ml 540 ml 717.5 ml Intake Oral 240 ml IV Total 517.5 ml 617.5 ml 300 ml 717.5 ml Output Urine Total 300 ml Drainage Total 40 ml 0 ml 0 ml # Voids 3 5 2 # Bowel Movements 1 1 Result Diagram: 09/09/17 0807 09/09/17 0801 Imaging Last Impressions Cholangiopancreatography MRI 09/06/17 0000 Signed Impressions: Service Date/Time: Wednesday, September 06, 2017 14:05 - CONCLUSION: 1. Gallbladder sludge, gallbladder wall thickening and pericholecystic fluid characteristic of acute cholecystitis. 2. Normal caliber intra-and extra hepatic biliary ducts. 3. Advanced hepatic steatosis. Jeremiah Kelley MD Chest X-Ray 09/06/17 0000 Signed Impressions: Service Date/Time: Wednesday, September 06, 2017 06:07 - CONCLUSION: No acute disease. There is no evidence of pneumonia. Luis Felipe Mosley MD Objective Remarks GENERAL: Pleasant middle-aged female in no acute distress. HEENT: EOMI. CARDIOVASCULAR: Regular rate and rhythm. No obvious murmurs RESPIRATORY: No obvious rhonchi or wheezing. Clear to auscultation. GASTROINTESTINAL: Abdomen soft, appropriately tender post op, sterries in place. MUSCULOSKELETAL: Extremities without edema. No obvious deformities. NEUROLOGICAL: alert and oriented. Moving both upper and lower extremities spontaneously. A/P Problem List: (1) Sepsis ICD Code: A41.9 - Sepsis, unspecified organism (2) Elevated LFTs ICD Code: R79.89 - Other specified abnormal findings of blood chemistry (3) Hypercalcemia ICD Code: E83.52 - Hypercalcemia (4) Hypokalemia ICD Code: E87.6 - Hypokalemia (5) Dehydration ICD Code: E86.0 - Dehydration (6) DM (diabetes mellitus) ICD Code: E11.9 - Type 2 diabetes mellitus without complications Assessment and Plan 1. Sepsis/gangrenous cholecystitis post op day#2: Temp 100.6, HR 116, WBC 27.6 , previously 13.9 on 09/04/17. Blood Cultures neg x 3 days, Vanc/Zosyn in ER , currently on flagyl, aztreonam and vanco. IVF for hydration U/a negative. CXR neg. leukocytosis resolved. Pt still on clears, advance diet per GS. 2. Elevated LFTs: trending down but still elevated. monitor. 3. Hypercalcemia: resolved. 4. Hypokalemia: resolved. 5. DM: Sliding scale w/ Accu-Cheks. Pt currently on 7units levemir qhs. Pt only on clears. will need to titrate up as pt's diet is advanced by GS 7. DVT Prophylaxis: SCD/Teds/encourage ambulation. Discharge Planning post day 2, continue to monitor and will need GS clearance for discharge GI has signed off. Iona Kingsley MD Sep 09, 2017 10:49
[2017-09-09] MEDS ORDERED: POTASSIUM CHLORIDE 20 MEQ CONTROLLED RELEASE TAB PO ONE ×2 (11:00→13:00)
[2017-09-09] MEDS: VANCOMYCIN INJ 1,750 MG in SODIUM CHLORID 0.9% 500 ML INJ 500 ML IV SCH ×2 (11:59→21:29)
[2017-09-09] MEDS: INSULIN DETEMIR 100 UNITS/ML VIAL SQ SCH (21:28)
[2017-09-10] VITALS (11 sets, daily range): BP systolic 108–142; BP diastolic 55–74; PULSE 66–82; RESP 17–21; TEMP 97.6–98.6; O2SAT 94–97
[2017-09-10] MEDS: metroNIDAZOLE 500 MG INJ 100 ML IV SCH ×3 (01:54→17:43)
[2017-09-10] MEDS: AZTREONAM INJ 1,000 MG in SODIUM CHLORIDE 0.9% INJ 100 ML IV SCH ×3 (04:25→21:30)
[2017-09-10 07:50] LABS: ALBUMIN 1.9 GM/DL (3.4-5.0); ALT (GPT) 138 U/L (10-53); AST (GOT) 49 U/L (15-37); BICARBONATE 30.3 MEQ/L (21.0-32.0); BLOOD UREA NITROGEN 8 MG/DL (7-18); CALCIUM 7.8 MG/DL (8.5-10.1); CHLORIDE 106 MEQ/L (98-107); CREATININE 0.46 MG/DL (0.50-1.00); GLOMERULAR FILTRATION RATE 142 ML/MIN (>89); GLUCOSE,RANDOM 147 MG/DL (74-106); SODIUM (NA) 143 MEQ/L (136-145)
[2017-09-10 07:51] LABS: ALKALINE PHOSPHATASE 289 U/L (45-117); TOTAL BILIRUBIN ADULT 0.5 MG/DL (0.2-1.0); TOTAL PROTEIN 5.4 GM/DL (6.4-8.2)
[2017-09-10] MEDS: INSULIN ASPART SUPPLEMENTAL SCALE SQ SCH ×4 (08:00→21:45)
[2017-09-10] MEDS: DOCUSATE SODIUM 50 MG/SENNA 8.6 MG TAB PO SCH ×2 (08:16→21:00)
[2017-09-10] MEDS: LACTATED RINGER'S 1000 ML INJ 1,000 ML IV SCH ×2 (08:43→19:00)
[2017-09-10] MEDS: SODIUM CHLORIDE 0.9% FLUSH 10 ML FLUSH IV FLUSH SCH ×2 (09:30→21:31)
[2017-09-10] MEDS: ACETAMINOPHEN/HYDROcodone 325 MG/5 MG TAB PO PRN (09:35)
--- NOTE | 2017-09-10 10:12 | HHI.PR ---
Subjective Subjective Notes "I'm hungry. I can't eat anymore chicken broth!" Reports multiple loose bowel movements Objective Vitals/I&O Vital Signs Date Time Temp Pulse Resp B/P (MAP) Pulse Ox O2 Delivery O2 Flow Rate FiO2 09/10/17 09:38 97 Nasal Cannula 3.00 09/10/17 08:00 98.5 70 21 142/74 (96) 09/07/17 23:05 35 Labs Laboratory Tests Test 09/09/17 10:45 09/10/17 06:33 Vancomycin Level Trough 17.1 Blood Urea Nitrogen 8 Creatinine 0.46 Random Glucose 147 Total Protein 5.4 Albumin 1.9 Calcium Level 7.8 Alkaline Phosphatase 289 Aspartate Amino Transf (AST/SGOT) 49 Alanine Aminotransferase (ALT/SGPT) 138 Total Bilirubin 0.5 Sodium Level 143 Potassium Level 3.1 Chloride Level 106 Carbon Dioxide Level 30.3 Anion Gap 7 Estimat Glomerular Filtration Rate 142 Date/Time Source Procedure Growth Status 09/05/17 18:50 Blood Peripheral Aerobic Blood Culture - Preliminary NO GROWTH IN 4 DAYS Resulted 09/05/17 18:50 Blood Peripheral Anaerobic Blood Culture - Preliminary NO GROWTH IN 4 DAYS Resulted Cardiovascular: Regular Lungs: Clear Abdomen: Non-distended, Other (abdomen soft; erythema at lap site lateral to umbilicus; non tender ) Extremities: Other (mild BUE edema ) A/P Assessment and Plan 52 year old female POD2 lap federica; gangrenous -Advance to Heart Healthy diet -Wean oxygen -Liver enzymes continue to trend down -Pain control -OOB and mobilize -IS -Replace K Attending Statement abdomen soft, minimally tender, appropriate for postop. drain still draining too much to remove, primarily serous. The exam, history, and the medical decision-making described in the above note were completed with the assistance of the mid-level provider. I reviewed and agree with the findings presented. I attest that I had a [id number] encounter with the patient on the same day, and personally performed and documented my assessment and findings in the medical record. Parisa Martinez Sep 10, 2017 10:12 Raphael Alcaraz MD Sep 12, 2017 10:49
[2017-09-10] MEDS ORDERED: POTASSIUM CHLORIDE 10 MEQ CONTROLLED RELEASE TAB PO ONE (10:15)
[2017-09-10] MEDS: VANCOMYCIN INJ 1,750 MG in SODIUM CHLORID 0.9% 500 ML INJ 500 ML IV SCH ×2 (10:31→22:57)
--- NOTE | 2017-09-10 13:11 | HHI.PR ---
Subjective Remarks PATIENT IS ADVANCED TO REGULAR DIET IF TOLERATES PROBABLY HOME TOMORROW DW RN AND PT AND FAMILY AND SURGERY Objective Vitals Vital Signs Date Time Temp Pulse Resp B/P (MAP) Pulse Ox O2 Delivery O2 Flow Rate FiO2 09/10/17 12:00 97.6 76 17 112/60 (77) 97 09/10/17 09:38 97 Nasal Cannula 3.00 09/10/17 08:00 70 09/10/17 08:00 98.5 70 21 142/74 (96) 97 09/10/17 08:00 97 Nasal Cannula 4.00 09/10/17 04:00 98.6 67 18 120/70 (87) 94 09/10/17 00:08 69 09/10/17 00:00 98.6 66 18 121/55 (77) 96 09/09/17 21:00 96 Nasal Cannula 4.00 09/09/17 20:06 85 09/09/17 20:00 98.8 78 18 115/53 (73) 91 09/09/17 17:27 96 Nasal Cannula 3.00 09/09/17 16:00 99.4 74 17 122/76 (91) 96 I/O 09/09/17 09/09/17 09/09/17 09/10/17 09/10/17 09/10/17 07:00 15:00 23:00 07:00 15:00 23:00 Intake Total 717.5 ml 720 ml 1600 ml Output Total 0 ml 110 ml Balance 717.5 ml 720 ml 1490 ml Intake Oral 620 ml 1000 ml IV Total 717.5 ml 100 ml 600 ml Drainage Total 0 ml 110 ml # Voids 2 4 5 # Bowel Movements 2 3 Result Diagram: 09/09/17 0807 09/10/17 0633 Other Results Laboratory Tests Test 09/08/17 04:09 09/09/17 08:01 09/09/17 08:07 09/09/17 10:45 White Blood Count 12.2 TH/MM3 10.2 TH/MM3 Red Blood Count 3.95 MIL/MM3 3.70 MIL/MM3 Hemoglobin 11.8 GM/DL 10.7 GM/DL Hematocrit 34.1 % 31.8 % Mean Corpuscular Volume 86.2 FL 86.0 FL Mean Corpuscular Hemoglobin 29.8 PG 28.9 PG Mean Corpuscular Hemoglobin Concent 34.5 % 33.6 % Red Cell Distribution Width 14.0 % 14.3 % Platelet Count 313 TH/MM3 348 TH/MM3 Mean Platelet Volume 8.5 FL 7.9 FL Neutrophils (%) (Auto) 89.8 % 62.0 % Lymphocytes (%) (Auto) 6.1 % 27.7 % Monocytes (%) (Auto) 3.6 % 6.5 % Eosinophils (%) (Auto) 0.2 % 3.5 % Basophils (%) (Auto) 0.3 % 0.3 % Neutrophils # (Auto) 10.9 TH/MM3 6.3 TH/MM3 Lymphocytes # (Auto) 0.7 TH/MM3 2.8 TH/MM3 Monocytes # (Auto) 0.4 TH/MM3 0.7 TH/MM3 Eosinophils # (Auto) 0.0 TH/MM3 0.4 TH/MM3 Basophils # (Auto) 0.0 TH/MM3 0.0 TH/MM3 CBC Comment DIFF FINAL AUTO DIFF Differential Comment FINAL DIFF MANUAL Blood Urea Nitrogen 13 MG/DL 11 MG/DL Creatinine 0.61 MG/DL 0.70 MG/DL Random Glucose 207 MG/DL 155 MG/DL Total Protein 6.3 GM/DL 6.1 GM/DL Albumin 2.0 GM/DL 2.1 GM/DL Calcium Level 8.2 MG/DL 8.1 MG/DL Magnesium Level 1.9 MG/DL 1.9 MG/DL Alkaline Phosphatase 281 U/L 305 U/L Aspartate Amino Transf (AST/SGOT) 156 U/L 122 U/L Alanine Aminotransferase (ALT/SGPT) 284 U/L 232 U/L Total Bilirubin 1.3 MG/DL 0.6 MG/DL Sodium Level 139 MEQ/L 141 MEQ/L Potassium Level 3.5 MEQ/L 2.9 MEQ/L Chloride Level 103 MEQ/L 102 MEQ/L Carbon Dioxide Level 28.2 MEQ/L 31.6 MEQ/L Anion Gap 8 MEQ/L 7 MEQ/L Estimat Glomerular Filtration Rate 102 ML/MIN 87 ML/MIN Differential Total Cells Counted 100 Neutrophils % (Manual) 58 % Band Neutrophils % 2 % Lymphocytes % 29 % Monocytes % 5 % Eosinophils % 4 % Neutrophils # (Manual) 6.3 TH/MM3 Metamyelocytes 1 % Myelocytes 1 % Platelet Estimate NORMAL Platelet Morphology Comment NORMAL Red Cell Morphology Comment NORMAL Vancomycin Level Trough 17.1 MCG/ML Test 1/2/18 06:33 Blood Urea Nitrogen 8 MG/DL Creatinine 0.46 MG/DL Random Glucose 147 MG/DL Total Protein 5.4 GM/DL Albumin 1.9 GM/DL Calcium Level 7.8 MG/DL Alkaline Phosphatase 289 U/L Aspartate Amino Transf (AST/SGOT) 49 U/L Alanine Aminotransferase (ALT/SGPT) 138 U/L Total Bilirubin 0.5 MG/DL Sodium Level 143 MEQ/L Potassium Level 3.1 MEQ/L Chloride Level 106 MEQ/L Carbon Dioxide Level 30.3 MEQ/L Anion Gap 7 MEQ/L Estimat Glomerular Filtration Rate 142 ML/MIN Imaging Last Impressions Cholangiopancreatography MRI 09/06/17 0000 Signed Impressions: Service Date/Time: Wednesday, September 06, 2017 14:05 - CONCLUSION: 1. Gallbladder sludge, gallbladder wall thickening and pericholecystic fluid characteristic of acute cholecystitis. 2. Normal caliber intra-and extra hepatic biliary ducts. 3. Advanced hepatic steatosis. Jeremiah Kelley MD Chest X-Ray 09/06/17 0000 Signed Impressions: Service Date/Time: Wednesday, September 06, 2017 06:07 - CONCLUSION: No acute disease. There is no evidence of pneumonia. Luis Felipe Mosley MD Objective Remarks GENERAL: Awake alert oriented talkative and cooperative trying to tolerated diet SKIN: Warm and dry. HEAD: Atraumatic. Normocephalic. EYES: Pupils equal and round. No scleral icterus. No injection or drainage. Extraocular muscles intact ENT: No nasal bleeding or discharge. Mucous membranes pink and moist. Tongue is midline NECK: Trachea midline. No JVD. Supple CARDIOVASCULAR: Regular rate and rhythm. S1 and S2 no S3 or S4 RESPIRATORY: No accessory muscle use. Clear to auscultation. Breath sounds equal bilaterally. GASTROINTESTINAL: Abdomen soft, non-tender, nondistended. Hepatic and splenic margins not palpable. TUBE IN PLACE MUSCULOSKELETAL: Extremities without clubbing, cyanosis, or edema. No obvious deformities. NEUROLOGICAL: Awake and alert. No obvious cranial nerve deficits. Motor grossly within normal limits. Five out of 5 muscle strength in the arms and legs. Normal speech. PSYCHIATRIC: Appropriate mood and affect; insight and judgment normal. Procedures MICHELLE MCKOY MD DATE OF SURGERY 12/30/17 PREOPERATIVE DIAGNOSIS Severe cholecystitis POSTOPERATIVE DIAGNOSIS Severe cholecystitis plus gangrenous changes. PROCEDURE Laparoscopic cholecystectomy. SURGEON Dr. Ulises Mckoy ANESTHESIA General INDICATIONS This is an unfortunate 52-year-old woman with multiple medical problems who developed severe right upper quadrant pain after drinking eggnog on September 01. She was seen in the emergency room the and ultrasound and CT scan were done. She definitely had sludge in her gallbladder and a big distended gallbladder, but no inflammatory changes and she was sent home. She came back in severe pain, elevated white count and an MRCP showed pericholecystic fluid and inflammation of the gallbladder wall. Surgical consultation was obtained. Recommendation was made for laparoscopic cholecystectomy. INTRAOPERATIVE FINDINGS Severe gangrenous cholecystitis. Gallbladder removed and sent pathology. It was determined not to be safe to attempt intraoperative cholangiography due to the severe inflammatory gangrenous changes. ESTIMATED BLOOD LOSS 100 mL. DRAINS A 10-Uzbek fluted drain placed in subhepatic position. PROCEDURE IN DETAIL The patient was identified as Shira Douglas, taken to the operating room and placed in supine position. Sequential compression devices were placed bilateral lower extremities. Following induction of adequate general endotracheal anesthesia, the patient's abdomen was prepped and draped in usual sterile fashion with Betadine. Time-out procedure was performed. Following completion of time-out procedure to everyone's satisfaction within the room, a site was selected for initial trocar placement superior and right lateral to the umbilicus due to the rotunded nature of her abdomen. Local anesthetic was placed. Incision was carried out with a scalpel. Dissection continued posteriorly through generous subcutaneous fatty tissue layer. Appendiceal retractors were required to identify the anterior fascia. This was incised in a transverse fashion and underlying muscle was spread with a Shanon clamp. The posterior fascia was retracted anteriorly with a Shanon clamp and incised with a scalpel allowing for entry into the peritoneal cavity which was confirmed with the surgeon's finger. The applied medical balloon Pamella trocar was placed in the peritoneal cavity, its balloon inflated to insufflation until level of 15 mmHg ensued. The patient was placed in reverse Trendelenberg position, turned to the left and three upper abdominal 5 mm trocars were placed in the peritoneal cavity under direct laparoscopic view after incision of the skin with a scalpel. Two in the upper midline, one in the right lateral abdomen. Inflammatory rind of omentum covered the gallbladder. This was taken down with blunt dissection using suction irrigation device. Gangrenous gallbladder was uncovered. Gangrenous changes were noted also in the right lateral aspect of the liver with exudative gangrenous material located there. Using suction dissection and blunt dissection and rebecca flex liver retractor on the inflammatory fat, all inflammatory tissue from the undersurface of the gallbladder was able to be removed. Gallbladder is then removed from the gallbladder fossa in a dome down technique using the harmonic scalpel and suction dissection. This allowed for isolation of what appeared to be cystic duct, cystic arterial what appeared to be a cystic artery was divided at the junction with the gallbladder and then Endolooped with a 0-PDS Endoloop. 0-PDS Endoloop was then placed across what appeared to be cystic duct and the gallbladder was amputated just proximal to this, placed into an Endo retriever bag and removed through the camera port incision site, passed off the field for pathologic evaluation. Right upper quadrant was irrigated copiously with saline and suctioned out. The gallbladder fossa had irritation. Surgicel powder was then placed in the gallbladder fossa. The cystic duct ligature remained intact. There was no obvious bleeding from the gallbladder fossa. No obvious bilious drainage either. Trocars are removed under direct visualization. The was no evidence of bleeding from trocar sites. The abdomen was actively desufflated through the camera port which was then removed. Posterior fascia was identified and closed with a single [id number] 0 Vicryl suture. Anterior fascia was closed with a couple interrupted 0 Vicryl sutures. Port sites were irrigated copiously with saline and skin incisions were approximated with 4-0 Monocryl subcuticular sutures. Dressings were applied with Mastisol and 1/2" brown Steri-Strips. ADDENDUM Prior to removal of the trocars, a 10-Uzbek fluted drain was placed through the right lateral trocar site in the subhepatic position, held in place with a 3-0 nylon drain stitch. A dry dressing was placed around the drain exit site. The patient tolerated the procedure without apparent complication. Sponge, needle and instrument counts were correct and the end of the case. Michelle Mckoy MD Medications and IVs Current Medications Sodium Chloride 1,000 ml @ 999 mls/hr BOLUS ONCE IV Last administered on 19:04; Start 09/05/17 at 18:30; Stop 09/05/17 at 19:30; Status DC Morphine Sulfate (Morphine Inj) 6 mg ONCE ONCE IV PUSH Last administered on 19:14; Start 09/05/17 at 18:30; Stop 09/05/17 at 18:31; Status DC Vancomycin HCl 1200 mg/Sodium Chloride 262 ml @ 250 mls/hr ONCE ONCE IV Last administered on 09/05/17 20:08; Start 09/05/17 at 18:30; Stop 09/05/17 at 19 :32; Status DC Aztreonam 1000 mg/ Sodium Chloride 100 ml @ 200 mls/hr ONCE ONCE IV Last administered on 09/05/17 19:58; Start 09/05/17 at 18:30; Stop 09/05/17 at 18 :59; Status DC Ondansetron HCl (Zofran Inj) 4 mg ONCE ONCE IV PUSH Last administered on 09/05 19:15; Start 09/05/17 at 18:30; Stop 09/05/17 at 18:31; Status DC Potassium Chloride (KCl) 40 meq ONCE ONCE PO ; Start 09/05/17 at 18:30; Stop 09/05/17 at 18:31; Status DC Metronidazole (Flagyl) 500 mg ONCE ONCE PO Last administered on 09/05/17 19: 09; Start 09/05/17 at 18:30; Stop 09/05/17 at 18:31; Status DC Pharmacy Profile Note 0 ml @ 0 mls/hr UNSCH OTHER ; Start 09/05/17 at 20:00 Metronidazole 100 ml @ 100 mls/hr Q8H IV Last administered on 09/10/17at 09:26; Start 09/06/17 at 02:00 Aztreonam 1000 mg/ Sodium Chloride 100 ml @ 200 mls/hr Q8H IV Last administered on 09/07/17 10:00; Start 09/06/17 at 02:00; Stop 09/07/17 at 21 :09; Status DC Dextrose (D50w (Vial) Inj) 50 ml UNSCH PRN IV PUSH HYPOGLYCEMIA-SEE COMMENTS; Start 09/05/17 at 20:00 Glucagon (Glucagon Inj) 1 mg UNSCH PRN OTHER HYPOGLYCEMIA-SEE COMMENTS; Start 09/05/17 at 20:00 Insulin Aspart (NovoLOG SUPPLEMENTAL SCALE) 1 ACHS SLIDING SCALE SQ Last administered on 09/10/17 12:45; Start 09/05/17 at 21:00 Sodium Chloride 1,000 ml @ 100 mls/hr Q10H IV Last administered on 09/07/17 11:07; Start 09/05/17 at 20:00; Stop 09/07/17 at 20:45; Status DC Sodium Chloride (NS Flush) 2 ml UNSCH PRN IV FLUSH FLUSH AFTER USING IV ACCESS Last administered on 09/06/17 04:26; Start 09/05/17 at 20:00 Sodium Chloride (NS Flush) 2 ml BID IV FLUSH Last administered on 09/10/17 09: 30; Start 09/05/17 at 21:00 Ondansetron HCl (Zofran Inj) 4 mg Q6H PRN IVP NAUSEA OR VOMITING Last administered on 09/07/17 11:06; Start 09/05/17 at 20:00 Acetaminophen (Tylenol) 650 mg Q6H PRN PO FEVER Last administered on 21:08; Start 09/05/17 at 20:00 Morphine Sulfate (Morphine Inj) 2 mg Q3H PRN IV PUSH Pain 6-10 Last administered on 09/06/17 04:25; Start 09/05/17 at 20:00 Oxycodone HCl (Roxicodone) 5 mg Q4H PRN PO PAIN SCALE 3 TO 5 Last administered on 09/05/17 21:07; Start 09/05/17 at 20:00; Stop 09/06/17 at 10:44; Status DC Senna/Docusate Sodium (Yoly-Colace) 1 tab BID PO Last administered on 09/09/17 09:06; Start 09/05/17 at 21:00 Magnesium Hydroxide (Milk Of Magnesia Liq) 30 ml Q12H PRN PO Mild constipation ; Start 09/05/17 at 20:00 Sennosides (Senokot) 17.2 mg Q12H PRN PO Moderate constipation; Start at 20:00 Bisacodyl (Dulcolax Supp) 10 mg DAILY PRN RECTAL SEVERE CONSITIPATION; Start 09/05/17 at 20:00 Lactulose (Lactulose Liq) 30 ml DAILY PRN PO SEVERE CONSITIPATION; Start 09/05 at 20:00 Vancomycin HCl 1250 mg/Sodium Chloride 262.5 ml @ 250 mls/hr Q12H IV Last administered on 09/07/17 09:36; Start 09/06/17 at 09:00; Stop 09/07/17 at 10 :24; Status DC Miscellaneous Information SPECIFIC LAB TO BE ANSHU... ONCE ONCE .XX Last administered on 09/07/17 08:45; Start 09/07/17 at 08:45; Stop 09/07/17 at 08 :46; Status DC Pneumococcal Polyvalent Vaccine (Pneumovax-23 Inj) 25 mcg ONCE ONCE IM Last administered on 09/06/17 11:44; Start 09/06/17 at 10:00; Stop 09/06/17 at 10 :01; Status DC Influenza Virus Vaccine (Flu (Quadrivalent) Vaccine Inj) 0.5 ml ONCE ONCE IM Last administered on 09/06/17 11:46; Start 09/06/17 at 10:00; Stop 09/06/17 at 10:01; Status DC Oxycodone/ Acetaminophen (Percocet 7.5-325 Mg) 1 tab Q4H PRN PO PAIN SCALE 3 TO 5; Start 09/06/17 at 10:45 Oxycodone/ Acetaminophen (Percocet 10-325 Mg) 1 tab Q6H PRN PO PAIN SCALE 6 TO 10 Last administered on 09/08/17 06:44; Start 09/06/17 at 10:45 Morphine Sulfate (Morphine Inj) 2 mg ONCE ONCE IV PUSH Last administered on 11:43; Start 09/06/17 at 11:00; Stop 09/06/17 at 11:01; Status DC Trimethobenzamide HCl (Tigan Inj) 200 mg Q6H PRN IM n/v not relieved with zofran Last administered on 09/06/17 22:32; Start 09/06/17 at 22:15 Meclizine HCl (Antivert) 25 mg ONCE ONCE PO Last administered on 09/07/17 05 :42; Start 09/07/17 at 05:15; Stop 09/07/17 at 05:20; Status DC Vancomycin HCl 1750 mg/Sodium Chloride 517.5 ml @ 250 mls/hr Q12H IV Last administered on 09/07/17 22:51; Start 09/07/17 at 18:00; Stop 09/08/17 at 05 :42; Status DC Miscellaneous Information SPECIFIC LAB TO BE ANSHU... ONCE ONCE .XX ; Start at 05:45; Stop 09/09/17 at 05:46; Status Cancel Potassium Chloride 100 ml @ 50 mls/hr BOLUS ONCE IV Last administered on 15:13; Start 09/07/17 at 12:15; Stop 09/07/17 at 14:14; Status DC Potassium Chloride 100 ml @ 50 mls/hr Q2H IV Last administered on 09/07/17 16:59; Start 09/07/17 at 16:00; Stop 09/07/17 at 19:59; Status DC Lactated Ringer's 1,000 ml @ 30 mls/hr Q24H PRN IV SEE LABEL COMMENTS; Start 09/07/17 at 18:15; Stop 09/07/17 at 22:30; Status DC Sodium Chloride 500 ml @ 30 mls/hr [id number] PRN IV SEE LABEL COMMENTS; Start at 18:15; Stop 09/07/17 at 22:30; Status DC Povidone Iodine (Betadine 5% Antisepsis Kit) 1 applic WATCH CRYSTAL CUTTER PRN EACH NARE SEE LABEL COMMENTS; Start 09/07/17 at 18:15; Stop 09/07/17 at 22:30; Status DC Chlorhexidine Gluconate (Chlorhexidine 2% Cloth) 3 pack WATCH CRYSTAL CUTTER PRN TOPICAL SEE LABEL COMMENTS; Start 09/07/17 at 18:15; Stop 09/07/17 at 22:30; Status DC Bupivacaine HCl/ Epinephrine Bitart (Marcaine-Epi Pf 0.25% Inj) 30 ml STK-MED ONCE .ROUTE ; Start 09/07/17 at 18:21; Stop 09/07/17 at 18:22; Status DC Fentanyl Citrate (fentaNYL INJ) 100 mcg STK-MED ONCE .ROUTE ; Start 09/07/17 at 20:03; Stop 09/07/17 at 20:04; Status DC Midazolam HCl (Versed Inj) 2 mg STK-MED ONCE .ROUTE ; Start 09/07/17 at 20:03; Stop 09/07/17 at 20:04; Status DC Morphine Sulfate (Morphine Inj) 4 mg STK-MED ONCE .ROUTE ; Start 09/07/17 at 20 :03; Stop 09/07/17 at 20:04; Status DC Miscellaneous Information ALL NURSING DEPARTME... UNSCH PRN .XX SEE LABEL COMMENTS; Start 09/07/17 at 20:45; Stop 09/08/17 at 20:44; Status DC Lactated Ringer's 1,000 ml @ 100 mls/hr Q10H IV Last administered on 21:00; Start 09/07/17 at 21:00 Acetaminophen/ Hydrocodone Bitart ([place] 5-325 Mg) 1 tab Q4H PRN PO PAIN SCALE 1 TO 5 Last administered on 09/09/17 21:27; Start 09/07/17 at 20:45 Acetaminophen/ Hydrocodone Bitart ([place] 5-325 Mg) 2 tab Q4H PRN PO PAIN SCALE 6 TO 10 Last administered on 09/10/17 09:35; Start 09/07/17 at 20:45 Miscellaneous Information (Post-op Orders (for Pharmacy)) STAT ONCE XX ; Start 09/07/17 at 20:45; Stop 09/07/17 at 20:46; Status DC Aztreonam 1000 mg/ Sodium Chloride 100 ml @ 200 mls/hr Q8H IV Last administered on 09/10/17 12:38; Start 09/07/17 at 21:00 Lactated Ringer's 800 ml @ 999 mls/hr Q49M IV Last administered on 09/07/17 21:00; Start 09/07/17 at 21:45; Stop 09/07/17 at 22:33; Status DC Fentanyl Citrate (fentaNYL INJ) 100 mcg STK-MED ONCE .ROUTE ; Start 09/07/17 at 22:34; Stop 09/07/17 at 22:35; Status DC Vancomycin HCl 1750 mg/Sodium Chloride 517.5 ml @ 250 mls/hr Q12H IV Last administered on 09/10/17 10:31; Start 09/08/17 at 11:00 Insulin Detemir (Levemir Inj) 7 units HS SQ Last administered on 09/09/17at 21:28 ; Start 09/08/17 at 21:00 Miscellaneous Information SPECIFIC LAB TO BE ANSHU... ONCE ONCE .XX Last administered on 09/09/17at 10:45; Start 09/09/17 at 10:45; Stop 09/09/17 at 10:46; Status DC Potassium Chloride (KCl) 40 meq ONCE ONCE PO Last administered on 09/09/17at 11: 59; Start 09/09/17 at 11:00; Stop 09/09/17 at 11:01; Status DC Potassium Chloride (KCl) 40 meq ONCE ONCE PO Last administered on 09/09/17at 14: 30; Start 09/09/17 at 13:00; Stop 09/09/17 at 13:01; Status DC Miscellaneous Information SPECIFIC LAB TO BE ANSHU... ONCE ONCE .XX ; Start at 10:45; Stop 09/12/17 at 10:46 Potassium Chloride (KCl) 40 meq ONCE ONCE PO Last administered on 09/10/17at 10: 26; Start 09/10/17 at 10:15; Stop 09/10/17 at 10:22; Status DC A/P Problem List: (1) Sepsis ICD Code: A41.9 - Sepsis, unspecified organism (2) Elevated LFTs ICD Code: R79.89 - Other specified abnormal findings of blood chemistry (3) Hypercalcemia ICD Code: E83.52 - Hypercalcemia (4) Hypokalemia ICD Code: E87.6 - Hypokalemia (5) Dehydration ICD Code: E86.0 - Dehydration (6) DM (diabetes mellitus) ICD Code: E11.9 - Type 2 diabetes mellitus without complications Assessment and Plan Assessment and Plan 1. Sepsis/gangrenous cholecystitis post op day#3: Temp RESOLVED WBC TRENDING DOWN. Blood Cultures neg x 3 days, Vanc/Zosyn in ER, currently on flagyl, aztreonam and vanco. IVF for hydration U/a negative. CXR neg. leukocytosis resolved. Pt DIET ADVANCED PER SURGERY 2. Elevated LFTs: trending down but still elevated. monitor. 3. Hypercalcemia: resolved. 4. Hypokalemia: . BEING REPLACED AM LABS 5. DM: Sliding scale w/ Accu-Cheks. Pt currently on 7units levemir qhs. Pt only on clears. will need to titrate up as pt's diet is advanced by GS CHANGE TO DM DIET 7. DVT Prophylaxis: SCD/Teds/encourage ambulation. Discharge Planning post day 3, continue to monitor and will need GS clearance for discharge GI has signed off. Discharge Planning Pending surgical clearance Jignesh Lebron DO Sep 10, 2017 13:11
[2017-09-10] MEDS: INSULIN DETEMIR 100 UNITS/ML VIAL SQ SCH (21:45)
[2017-09-11] VITALS: BP 123/59; PULSE 79; RESP 17; TEMP 97.3; O2SAT 97
[2017-09-11] MEDS: metroNIDAZOLE 500 MG INJ 100 ML IV SCH (02:41)
[2017-09-11 04:00] VITALS: BP 125/68; PULSE 77; RESP 17; TEMP 98.9; O2SAT 98
[2017-09-11] MEDS: AZTREONAM INJ 1,000 MG in SODIUM CHLORIDE 0.9% INJ 100 ML IV SCH (04:56)
[2017-09-11 07:19] LABS: AUTOMATED NEUTROPHIL # 8.3 TH/MM3 (1.8-7.7); BASOPHIL # 0.1 TH/MM3 (0-0.2); BASOPHIL % 0.7 % (0.0-2.0); EOSINOPHIL # 0.4 TH/MM3 (0-0.4); EOSINOPHIL % 3.1 % (0.0-4.0); HEMATOCRIT 32.9 % (35.0-46.0); LYMPH % 21.8 % (9.0-44.0); LYMPHOCYTE # 2.6 TH/MM3 (1.0-4.8); MEAN CELL VOLUME 86.6 FL (80.0-100.0); MEAN CORPUSCULAR HEMOGLOBIN 29.1 PG (27.0-34.0); MEAN CORPUSCULAR HGB CONC 33.6 % (32.0-36.0); MEAN PLATELET VOLUME 7.4 FL (7.0-11.0); MONOCYTE # 0.6 TH/MM3 (0-0.9); NEUT % 69.4 % (16.0-70.0); PLATELET COUNT 317 TH/MM3 (150-450); RED CELL DISTRIBUTION WIDTH 14.4 % (11.6-17.2)
[2017-09-11 07:40] LABS: ALBUMIN 2.1 GM/DL (3.4-5.0); ALT (GPT) 100 U/L (10-53); AST (GOT) 32 U/L (15-37); BICARBONATE 27.9 MEQ/L (21.0-32.0); BLOOD UREA NITROGEN 7 MG/DL (7-18); CALCIUM 8.1 MG/DL (8.5-10.1); CHLORIDE 102 MEQ/L (98-107); CREATININE 0.54 MG/DL (0.50-1.00); GLOMERULAR FILTRATION RATE 118 ML/MIN (>89); GLUCOSE,RANDOM 223 MG/DL (74-106); MAGNESIUM 1.7 MG/DL (1.5-2.5); PHOSPHORUS 3.3 MG/DL (2.5-4.9); SODIUM (NA) 139 MEQ/L (136-145)
[2017-09-11 07:49] LABS: ALKALINE PHOSPHATASE 281 U/L (45-117); FREE T4 1.28 NG/DL (0.76-1.46); TOTAL BILIRUBIN ADULT 0.4 MG/DL (0.2-1.0); TOTAL PROTEIN 5.6 GM/DL (6.4-8.2)
[2017-09-11 08:00] VITALS: BP 128/60; PULSE 73; RESP 17; TEMP 98.3; O2SAT 97
--- NOTE | 2017-09-11 08:26 | HHI.FF ---
Face to Face Verification Diagnosis: (1) Cholecystitis (2) Elevated LFTs Home Health Nursing Order: Wound care and dressing changes Instructions: Routine ELEN drain care and monitoring; please record daily output to bring to office visit I have seen patient Shira Douglas on 09/11/17. My clinical findings support the need for the requested home health care services because: Limited ability to care for self High risk of falls I certify that my clinical findings support that this patient is homebound because: Post-op weakness Parisa Martinez Sep 11, 2017 08:26
--- NOTE | 2017-09-11 08:28 | HHI.PR ---
Subjective Subjective Notes Up to chair Waiting on breakfast Objective Vitals/I&O Vital Signs Date Time Temp Pulse Resp B/P (MAP) Pulse Ox O2 Delivery O2 Flow Rate FiO2 09/11/17 08:00 98.3 73 17 128/60 (82) 97 09/10/17 21:56 Nasal Cannula 4.00 09/07/17 23:05 35 Labs Laboratory Tests Test 09/11/17 06:12 White Blood Count 12.0 Red Blood Count 3.80 Hemoglobin 11.0 Hematocrit 32.9 Mean Corpuscular Volume 86.6 Mean Corpuscular Hemoglobin 29.1 Mean Corpuscular Hemoglobin Concent 33.6 Red Cell Distribution Width 14.4 Platelet Count 317 Mean Platelet Volume 7.4 Neutrophils (%) (Auto) 69.4 Lymphocytes (%) (Auto) 21.8 Monocytes (%) (Auto) 5.0 Eosinophils (%) (Auto) 3.1 Basophils (%) (Auto) 0.7 Neutrophils # (Auto) 8.3 Lymphocytes # (Auto) 2.6 Monocytes # (Auto) 0.6 Eosinophils # (Auto) 0.4 Basophils # (Auto) 0.1 CBC Comment AUTO DIFF Blood Urea Nitrogen 7 Creatinine 0.54 Random Glucose 223 Total Protein 5.6 Albumin 2.1 Calcium Level 8.1 Phosphorus Level 3.3 Magnesium Level 1.7 Alkaline Phosphatase 281 Aspartate Amino Transf (AST/SGOT) 32 Alanine Aminotransferase (ALT/SGPT) 100 Total Bilirubin 0.4 Sodium Level 139 Potassium Level 3.2 Chloride Level 102 Carbon Dioxide Level 27.9 Anion Gap 9 Estimat Glomerular Filtration Rate 118 Free Thyroxine 1.28 Thyroid Stimulating Hormone 3rd Gen 3.460 Date/Time Source Procedure Growth Status 09/05/17 18:50 Blood Peripheral Aerobic Blood Culture - Final NO GROWTH IN 5 DAYS Complete 09/05/17 18:50 Blood Peripheral Anaerobic Blood Culture - Final NO GROWTH IN 5 DAYS Complete Cardiovascular: Regular Lungs: Clear Abdomen: Non-distended, Non-tender, Other (ELEN with serous fluid; lap sites c/d/ i ) Extremities: Other (mild generalized edema ) A/P Assessment and Plan 52 year old female POD3 lap federica; gangrenous -Tolerating diet -Wean oxygen -Liver enzymes continue to trend down -Pain control -OOB and mobilize -IS -Replace K -Lasix x 1 dose -DC Antibiotics -GS clear for DC; okay for showers---no baths -Follow up visit Sep 19 at 2:10PM Attending Statement abdomen benign, appetite good. No problems with having good BMs. Wantsa to go home. The exam, history, and the medical decision-making described in the above note were completed with the assistance of the mid-level provider. I reviewed and agree with the findings presented. I attest that I had a [id number] encounter with the patient on the same day, and personally performed and documented my assessment and findings in the medical record. Parisa Martinez Sep 11, 2017 08:28 Raphael Alcaraz MD Sep 12, 2017 10:54
[2017-09-11] MEDS ORDERED: POTASSIUM CHLORIDE 10 MEQ CONTROLLED RELEASE TAB PO ONE (08:30)
[2017-09-11] MEDS ORDERED: FUROSEMIDE 20 MG TAB PO ONE (08:30)
[2017-09-11 08:39] LABS: BANDS 7 % (0-6); LYMPHOCYTES 22 % (9-44); METAMYELOCYTES 2 % (0-1); MONOCYTES 9 % (0-8); MYELOCYTES 4 % (0-0); POLYS (SEG NEUTROPHILS) 54 % (16-70)
[2017-09-11] MEDS: SODIUM CHLORIDE 0.9% FLUSH 10 ML FLUSH IV FLUSH SCH (09:00)
[2017-09-11] MEDS: DOCUSATE SODIUM 50 MG/SENNA 8.6 MG TAB PO SCH (09:00)
[2017-09-11] MEDS ORDERED: HYDR-3516 PO (09:24)
--- NOTE | 2017-09-11 09:27 | HHI.DCPOC ---
Discharge Care Plan Diagnosis: (1) Diabetes mellitus (2) DM (diabetes mellitus) (3) Cholecystitis (4) Hypertension (5) Elevated liver enzymes (6) Elevated LFTs Additional Problems You will need to see your primary care provider in 3-5 days in regards to restarting your anti-hypertensive medication and your statin. You blood pressure has been normal during your hospitalization while off your medication and your liver enzymes were high so your statin was stopped too. Goals to Promote Your Health * To prevent worsening of your condition and complications * To maintain your health at the optimal level Directions to Meet Your Goals Take your medications as prescribed Follow your dietary instruction Follow activity as directed Keep your appointments as scheduled Take your immunizations and boosters as scheduled If your symptoms worsen call your PCP, if no PCP go to Urgent Care Center or Emergency Room Smoking is Dangerous to Your Health. Avoid second hand smoke Call the 24-hour hour crisis hotline for domestic abuse at Zaria Kohli MD Sep 11, 2017 09:27
--- NOTE | 2017-09-11 09:29 | HHI.DS ---
Discharge Summary Admission Date Sep 05, 2017 at 19:47 Discharge Date: Sep 11, 2017 Admitting Diagnosis sepsis with dilated common bile duct (1) Cholecystitis ICD Code: K81.9 - Cholecystitis, unspecified Diagnosis: Principal (2) Elevated LFTs ICD Code: R79.89 - Other specified abnormal findings of blood chemistry Diagnosis: Principal (3) Hypercalcemia ICD Code: E83.52 - Hypercalcemia Diagnosis: Secondary (4) Hypokalemia ICD Code: E87.6 - Hypokalemia Diagnosis: Secondary (5) Dehydration ICD Code: E86.0 - Dehydration Diagnosis: Principal (6) DM (diabetes mellitus) ICD Code: E11.9 - Type 2 diabetes mellitus without complications Diagnosis: Secondary Procedures 09/07/17 Severe cholecystitis plus gangrenous changes. Laparoscopic cholecystectomy. Brief History - From Admission This is a 52-year-old female with a PMH of HTN and DM was sent to the ER with complaints of RUQ pain x2 days. Pain is sharp, severe 10/10 and constant, worse after eating. Reports associated nausea/vomiting. No fever, chills or diarrhea. Seen in ER on 09/04/17 for similar complaints, CT Abd/Pelvis w/ fatty liver, left adrenal nodule likely benign, Gallbladder US normal, U/a negative, Labs essentially unremarkable. Seen by PCP today for ongoing complaints, however no improvement, states pain recurred after eating some soup and came to ER. On arrival, BP 146/77, HR 1:15, O2 sat 96% on RA, Temp 100.6. WBC 27.6, WBC 13.9 on 09/04/17. LFTs elevated in comparison to previous labs from 09/04/17. Calcium 10.2. Lactic Acid normal. K+ 3.1. U/a negative. S/p Blood Cultures, Vanc/Zosyn in ER. CBC/BMP: 09/11/17 0612 09/11/17 0612 Significant Findings Laboratory Tests Test 09/09/17 08:01 09/09/17 08:07 09/09/17 10:45 09/10/17 06:33 Random Glucose 155 MG/DL (74-106) 147 MG/DL (74-106) Total Protein 6.1 GM/DL (6.4-8.2) 5.4 GM/DL (6.4-8.2) Albumin 2.1 GM/DL (3.4-5.0) 1.9 GM/DL (3.4-5.0) Calcium Level 8.1 MG/DL (8.5-10.1) 7.8 MG/DL (8.5-10.1) Alkaline Phosphatase 305 U/L (45-117) 289 U/L (45-117) Aspartate Amino Transf (AST/SGOT) 122 U/L (15-37) 49 U/L (15-37) Alanine Aminotransferase (ALT/SGPT) 232 U/L (10-53) 138 U/L (10-53) Potassium Level 2.9 MEQ/L (3.5-5.1) 3.1 MEQ/L (3.5-5.1) Estimat Glomerular Filtration Rate 87 ML/MIN (>89) Red Blood Count 3.70 MIL/MM3 (4.00-5.30) Hemoglobin 10.7 GM/DL (11.6-15.3) Hematocrit 31.8 % (35.0-46.0) Myelocytes 1 % (0-0) Vancomycin Level Trough 17.1 MCG/ML (5.0-10.0) Creatinine 0.46 MG/DL (0.50-1.00) Test 09/11/17 06:12 White Blood Count 12.0 TH/MM3 (4.0-11.0) Red Blood Count 3.80 MIL/MM3 (4.00-5.30) Hemoglobin 11.0 GM/DL (11.6-15.3) Hematocrit 32.9 % (35.0-46.0) Neutrophils # (Auto) 8.3 TH/MM3 (1.8-7.7) Band Neutrophils % 7 % (0-6) Monocytes % 9 % (0-8) Neutrophils # (Manual) 8.0 TH/MM3 (1.8-7.7) Metamyelocytes 2 % (0-1) Myelocytes 4 % (0-0) Random Glucose 223 MG/DL (74-106) Total Protein 5.6 GM/DL (6.4-8.2) Albumin 2.1 GM/DL (3.4-5.0) Calcium Level 8.1 MG/DL (8.5-10.1) Alkaline Phosphatase 281 U/L (45-117) Alanine Aminotransferase (ALT/SGPT) 100 U/L (10-53) Potassium Level 3.2 MEQ/L (3.5-5.1) Imaging Last Impressions Cholangiopancreatography MRI 09/06/17 0000 Signed Impressions: Service Date/Time: Wednesday, September 06, 2017 14:05 - CONCLUSION: 1. Gallbladder sludge, gallbladder wall thickening and pericholecystic fluid characteristic of acute cholecystitis. 2. Normal caliber intra-and extra hepatic biliary ducts. 3. Advanced hepatic steatosis. Jeremiah Kelley MD Chest X-Ray 09/06/17 0000 Signed Impressions: Service Date/Time: Wednesday, September 06, 2017 06:07 - CONCLUSION: No acute disease. There is no evidence of pneumonia. Luis Felipe Mosley MD PE at Discharge GENERAL: Awake alert oriented talkative and cooperative trying to tolerated diet CARDIOVASCULAR: Regular rate and rhythm. S1 and S2 no S3 or S4 RESPIRATORY: No accessory muscle use. Clear to auscultation. Breath sounds equal bilaterally. GASTROINTESTINAL: Abdomen soft, non-tender, nondistended. Normal active bowel sounds. MUSCULOSKELETAL: Extremities without clubbing, cyanosis, or edema. No obvious deformities. NEUROLOGICAL: Awake and alert. No obvious cranial nerve deficits. Motor grossly within normal limits. Five out of 5 muscle strength in the arms and legs. Normal speech. PSYCHIATRIC: Appropriate mood and affect; insight and judgment normal. Pt update on day of discharge Follow-up for cholecystectomy Patient has no complaints. Denied any abdominal pain. Denyied nausea or vomiting. She is tolerating oral intake. Blood sugars have been in the mid to upper 200s. She is concerned because her insulin was not restarted at her normal dose with high blood sugars. Otherwise she has no other complaints. Asking if she can leave after lunch. She remains afebrile. Hospital Course This is a 52-year-old female who was complaining abdominal pain and nausea vomiting in which study showed she had possible cholecystitis. Patient was treated empirically with aztreonam, vancomycin and Flagyl. She was given IV fluids. Gen. surgeon consulted and recommended a cholecystectomy. The procedure showed that her cholecystitis was severe and gangrenous. She did very well after the surgery. Patient able to tolerate oral intake and had a bowel movement after surgery. Blood cultures were negative so antibiotics discontinued. Initially her insulin was held since she was nothing by mouth but her blood sugars were in the 200s. He was started on a low dose of Levemir in which her blood sugar continues to be in the mid to upper 200s. Upon discharge she was discharged on her home dosage of insulin. Her statin was held secondary to elevated LFTs from the cholecystitis. Patient told to follow- up with her primary care provider within one week in regards to restarting her statin. Patient was also on antihypertensive medication but her blood pressure was normotensive during her hospitalization. Patient told to also follow with her primary care provider in regards to restarting her antihypertensive medication. She was restarted on lisinopril since it was a very low dose and this is beneficial for diabetic patient. Patient was cleared by general surgeon with follow-up on the day for discharge. Pt Condition on Discharge: Good Discharge Disposition: Disch w/ Home Health Serv Discharge Time: > 30 minutes Discharge Instructions DIET: Follow Instructions for: Heart Healthy Diet, Diabetic Diet Activities you can perform: See Additionl Instruction Other Activity Instructions: As directed by her general surgeon. You may take showers but no baths. Follow up Referrals: PCP Follow-up - 3-5 Days Surgical - 09/19/17 with Raphael Alcaraz MD Sep 19 at 2:10PM New Medications: Hydrocodone/Acetaminophen (Hydrocodone-Acetamin 5-325 mg) 5 Mg-325 Mg Tablet 1 TAB PO Q4H PRN for moderate to severe pain, #40 TAB 0 Refills Continued Medications: Ikfpuyihxf-Uhxmjernzehnd-Jkccuqaf (Aimhcszksw-Izeuermgiefhj-Nettlgix) 50-300-40 Mg Cap 1 CAP PO Q4H PRN for HEADACHE, CAP 0 Refills Do not exceed 6 capsules/day. Calcium Citrate-Vitamin D (Citracal + D3 Maximum) 315-250 Mg-Unit Tab 1 TAB PO BID for Calcium Supplement, #100 TAB 0 Refills Docusate Sodium (Dok) 100 Mg Cap 100 MG PO DAILY for Constipation Escitalopram (Escitalopram) 10 Mg Tab 10 MG PO DAILY, #30 TAB 0 Refills Fluticasone Nasal [place] (Flonase Nasal [place]) 50 Mcg/Act [place] 50 MCG EACH NARE BID for Allergies, #1 BOTTLE 0 Refills Insulin Glargine Inj (Lantus Inj) 1,000 Unit/10 Ml Vial 20 UNITS SQ HS for Blood Sugar Management, #1 VIAL 3 Refills and 18 units sq every morning. Insulin Lispro (Human) Inj (Humalog Inj) 1,000 Unit/10 Ml Vial 8 UNITS SQ TIDAC for Blood Sugar Management, #1 VIAL 3 Refills SQ SSI: 121-150=2 units, 151-200=4 units, 201-250=6 units, 251-300=8 units, 301-350=10 units,>351 call/go to ED Lisinopril (Lisinopril) 2.5 Mg Tab 2.5 MG PO DAILY, #30 TAB 3 Refills Loratadine (Claritin) 10 Mg Cap 10 MG PO DAILY for Allergy Management, CAP 0 Refills Meclizine (Meclizine) 25 Mg Tab 25 MG PO TID PRN for VERTIGO, TAB 0 Refills Metformin (Metformin) 850 Mg Tab 850 MG PO BIDPC for Blood Sugar Management, #60 TAB 3 Refills With meals Ondansetron Odt (Zofran Odt) 4 Mg Tab 4 MG SL Q8HR PRN for Nausea/Vomiting, #30 TAB 0 Refills Pantoprazole (Pantoprazole) 40 Mg Tab 40 MG PO DAILY for Reflux, #30 TAB 2 Refills Sertraline (Zoloft) 25 Mg Tab 25 MG PO DAILY, #30 TAB 0 Refills [Accu-Chek Fastclix] () 1 UNITS .XX QID [Depend Silhouet] () 3 BOX XX [Glucometer] () 1 KIT .XX [Glucomteststrips] () 1 STRIP XX QID [Humalog 100ML] () 8 UNITS SQ DAILY [Incontinence Briefs] () 1 BOX for Hygeine [Insulin syringe] () 2 BOX XX [Insulin Syringe] () 2 BOX Discontinued Medications: Amlodipine (Amlodipine) 10 Mg Tab 10 MG PO DAILY for Blood Pressure Management, #30 TAB 3 Refills Celecoxib (Celebrex) 200 Mg Cap 200 MG PO DAILY for Pain Management, #31 CAP 1 Refill Please take only if needed, please be aware of carviovascular risks as well gastric irritation, bleeding and kidney injury. Dicyclomine (Bentyl) 10 Mg Cap 10 MG PO QID for Bowel Management, #15 CAP 0 Refills Naproxen (Naproxen) 500 Mg Tab 500 MG PO BID, #60 TAB 0 Refills Simvastatin (Zocor) 20 Mg Tab 20 MG PO HS for Cholesterol Management, #30 TAB 3 Refills Zaria Kohli MD Sep 11, 2017 09:29
[2017-09-11] MEDS: INSULIN ASPART SUPPLEMENTAL SCALE SQ SCH (09:57)
[2017-09-11 16:38] LABS: HEMOGLOBIN A1C 6.8 % (4.3-6.0)
[2017-09-12] MEDS ORDERED: PHARMACY ORDERED LAB ONE (10:45)
== END 2017-09-11 12:13 | disposition home health service (06) | DRG 854 ==
LOC: NEPD 16:30 → NEDA 19:47 → N07A 20:52
PROVIDERS: ADMIT Family Medicine; ATTEND Family Medicine
PROC: 0FT44ZZ Resection of Gallbladder, Percutaneous Endoscopic Approach (ICD-10-PCS; principal; 2017-09-07 18:41)
DX: A41.9 Sepsis, unspecified organism (principal); K81.0 Acute cholecystitis; E27.8 Other specified disorders of adrenal gland; K76.0 Fatty (change of) liver, not elsewhere classified; E83.52 Hypercalcemia; D64.9 Anemia, unspecified; I10 Essential (primary) hypertension; E11.9 Type 2 diabetes mellitus without complications; E87.6 Hypokalemia; E86.0 Dehydration; Z23 Encounter for immunization; R48.0 Dyslexia and alexia; Z79.4 Long term (current) use of insulin; Z86.010 Personal history of colon polyps; Z88.0 Allergy status to penicillin
CPT/HCPCS: 71010; 74177; 74181; 76377; 76705; 80053; 80202; 81001; 82565; 82948; 83036; 83605; 83690; 83735; 84100; 84439; 84443; 85007; 85025; 85027; 87040; 88304; 90686; 90732; 93005; 94150; 94762; 96361; 96374; 96375; 96376; J0330; J1100; J1170; J1815; J2250; J2270; J2370; J2405; J3010; J3250; J3370; J3480; J7030; J7040; J7050; J7120; Q2038; Q9967

== ENCOUNTER 2017-09-15 14:17 | Inpatient (IN) | payer OTHER ==
[~2017-09-15] VITALS: Ht 144.8 cm; Wt 84.2 kg
[~2017-09-15 14:17] MED LIST changes: -AMLO10TA2 PO; -CELE200C PO; -DICY10 PO; +HYDR-3516 PO; -NAPR500T2 PO; -ZOCO20TA PO
[2017-09-15 14:18] VITALS: BP 145/80; PULSE 96; RESP 16; TEMP 101.3; O2SAT 96
[2017-09-15] MEDS ORDERED: IBUPROFEN 800 MG TAB PO ONE (14:45)
[2017-09-15 15:04] LABS: AUTOMATED NEUTROPHIL # 15.2 TH/MM3 (1.8-7.7); BASOPHIL # 0.1 TH/MM3 (0-0.2); BASOPHIL % 0.6 % (0.0-2.0); EOSINOPHIL # 0.3 TH/MM3 (0-0.4); EOSINOPHIL % 1.4 % (0.0-4.0); HEMATOCRIT 34.9 % (35.0-46.0); HEMOGLOBIN 11.8 GM/DL (11.6-15.3); LYMPH % 10.6 % (9.0-44.0); LYMPHOCYTE # 1.9 TH/MM3 (1.0-4.8); MEAN CELL VOLUME 87.1 FL (80.0-100.0); MEAN CORPUSCULAR HEMOGLOBIN 29.3 PG (27.0-34.0); MEAN CORPUSCULAR HGB CONC 33.7 % (32.0-36.0); MEAN PLATELET VOLUME 7.5 FL (7.0-11.0); MONO % 4.3 % (0.0-8.0); MONOCYTE # 0.8 TH/MM3 (0-0.9); NEUT % 83.1 % (16.0-70.0); PLATELET COUNT 478 TH/MM3 (150-450); WHITE BLOOD COUNT 18.2 TH/MM3 (4.0-11.0)
[2017-09-15 15:23] LABS: ALBUMIN 3.1 GM/DL (3.4-5.0); ALT (GPT) 47 U/L (10-53); AST (GOT) 26 U/L (15-37); BICARBONATE 23.5 MEQ/L (21.0-32.0); BLOOD UREA NITROGEN 12 MG/DL (7-18); CALCIUM 8.5 MG/DL (8.5-10.1); CHLORIDE 104 MEQ/L (98-107); CREATININE 0.59 MG/DL (0.50-1.00); GLOMERULAR FILTRATION RATE 106 ML/MIN (>89); GLUCOSE,RANDOM 146 MG/DL (74-106); SODIUM (NA) 136 MEQ/L (136-145)
[2017-09-15 15:25] LABS: ALKALINE PHOSPHATASE 191 U/L (45-117); TOTAL BILIRUBIN ADULT 0.6 MG/DL (0.2-1.0); TOTAL PROTEIN 7.1 GM/DL (6.4-8.2)
[2017-09-15] MEDS ORDERED: SODIUM CHLORIDE 0.9% FLUSH 10 ML FLUSH IV FLUSH PRN ×2 (16:15→19:15)
[2017-09-15 16:35] VITALS: BP 108/65; PULSE 79; RESP 16; TEMP 100; O2SAT 96
--- NOTE | 2017-09-15 16:52 | PD ---
HPI Chief Complaint: Abdominal Pain Time Seen by Provider: 15:38 Travel History International Travel<30 days: No Contact w/Intl Traveler<30days: No Traveled to known affect area: No History of Present Illness HPI 52-year-old female complains of right upper quadrant abdominal pain. Patient states that the pain started last night. Patient status post laparoscopic cholecystectomy by Dr. Alcaraz August 25, 2017. Patient has been doing well until last night when she started having increasing right upper quadrant abdominal pain and poor appetite. Patient states the pain is cramping pain and sharp pain localized to right upper quadrant of the abdomen. Patient denies any pain radiation. Patient denies any nausea vomiting diarrhea. Patient denies any dysuria or frequency. Patient denies any vaginal discharge or bleeding. Patient denies any fever chills. On a scale of 1-10 the pain is an 8. Patient states that the drain apparatus in the right upper quadrant of the abdomen has been draining well. PFSH Past Medical History Arthritis: Yes Anxiety: Yes Depression: Yes Cancer: No Cardiovascular Problems: Yes High Cholesterol: Yes Diabetes: Yes Patient Takes Glucophage: No Diminished Hearing: No Endocrine: Yes Genitourinary: No Hypertension: Yes Immune Disorder: No Musculoskeletal: Yes Neurologic: Yes Psychiatric: Yes Reproductive: No Respiratory: Yes Migraines: Yes Sleep Apnea: Yes Tetanus Vaccination: > 5 Years ?: Not Past Surgical History Abdominal Surgery: Yes (appendectomy ) Appendectomy: Yes Cardiac Surgery: Yes (open heart) Gynecologic Surgery: Yes (hysterectomy ) Hysterectomy: Yes Social History Alcohol Use: No Tobacco Use: No Substance Use: No Allergies-Medications (Allergen,Severity, Reaction): Coded Allergies: penicillin G (Unverified Adverse Reaction, Intermediate, hives, 09/05/17) Reported Meds & Prescriptions Reported Meds & Active Scripts Active Hydrocodone-Acetamin 5-325 mg (Hydrocodone/Acetaminophen) 5 Mg-325 Mg Tablet 1 Tab PO Q4H PRN Zofran Odt (Ondansetron Odt) 4 Mg Tab 4 Mg SL Q8HR PRN Pantoprazole (Pantoprazole Sodium) 40 Mg Tab 40 Mg PO DAILY Metformin (Metformin HCl) 850 Mg Tab 850 Mg PO BIDPC With meals Humalog Inj (Insulin Human Lispro) 1,000 Unit/10 Ml Vial 8 Units SQ TIDAC SQ SSI: 121-150=2 units, 151-200=4 units, 201-250=6 units, 251-300=8 units, 301-350=10 units,>351 call/go to ED Lisinopril 2.5 Mg Tab 2.5 Mg PO DAILY Reported Naprosyn (Naproxen) 500 Mg Tab 500 Mg PO Q12HR PRN Lantus Inj (Insulin Glargine) 1,000 Unit/10 Ml Vial 20 Units SQ HS Lantus Inj (Insulin Glargine) 100 Unit/Ml Inj 18 Units SQ DAILY IN THE AM Escitalopram (Escitalopram Oxalate) 10 Mg Tab 10 Mg PO DAILY Claritin (Loratadine) 10 Mg Cap 10 Mg PO DAILY Zoloft (Sertraline HCl) 25 Mg Tab 25 Mg PO DAILY Meclizine (Meclizine HCl) 25 Mg Tab 25 Mg PO TID PRN Yyacucbrln-Tushwgjkavqtl-Gzleruln 50-300-40 Mg Cap 1 Cap PO Q4H PRN Do not exceed 6 capsules/day. Flonase Nasal [place] (Fluticasone Nasal [place]) 50 Mcg/Act [place] 1 [place] EACH NARE BID Citracal + D3 Maximum (Calcium Citrate-Vitamin D) 315-250 Mg-Unit Tab 1 Tab PO BID Dok (Docusate Sodium) 100 Mg Cap 100 Mg PO DAILY Review of Systems General / Constitutional: No: Fever Eyes: No: Visual changes HENT: No: Headaches Cardiovascular: No: Chest Pain or Discomfort Respiratory: No: Shortness of Breath Gastrointestinal: Positive: Abdominal Pain Genitourinary: No: Dysuria Musculoskeletal: No: Pain Skin: No Rash Neurologic: No: Weakness Psychiatric: No: Depression Endocrine: No: Polydipsia Hematologic/Lymphatic: No: Easy Bruising Physical Exam Narrative GENERAL: Well-nourished, well-developed patient. SKIN: Focused skin assessment warm/dry. HEAD: Normocephalic. EYES: No scleral icterus. No injection or drainage. NECK: Supple, trachea midline. No JVD or lymphadenopathy. CARDIOVASCULAR: Regular rate and rhythm without murmurs, gallops, or rubs. RESPIRATORY: Breath sounds equal bilaterally. No accessory muscle use. GASTROINTESTINAL: Abdomen soft, nondistended. Patient has moderate tenderness on palpation right upper quadrant of the abdomen. ELEN Draining apparatus in place. Yellow clear fluid in the bottle. MUSCULOSKELETAL: No cyanosis, or edema. BACK: Nontender without obvious deformity. No CVA tenderness. Neurologic exam normal. Data Data Last Documented VS Vital Signs Date Time Temp Pulse Resp B/P (MAP) Pulse Ox O2 Delivery O2 Flow Rate FiO2 09/15/17 18:33 99.4 80 16 98/63 (75) 96 Room Air Orders Orders Sepsis Workup Initiated (09/15/17 ) Complete Blood Count With Diff (09/15/17 14:26) Comprehensive Metabolic Panel (09/15/17 14:26) Urinalysis - C+S If Indicated (09/15/17 14:26) Lactic Acid Sepsis Protocol (09/15/17 14:26) Blood Culture (09/15/17 14:26) Ibuprofen (Motrin) (09/15/17 14:45) Ct Abd/Pel W Iv Contrast(Rout) (09/15/17 16:04) Sodium Chloride 0.9% Flush (Ns Flush) (09/15/17 16:15) Iohexol 350 Inj (Omnipaque 350 Inj) (09/15/17 17:15) Aztreonam Inj (Azactam Inj) (09/15/17 18:45) Metronidazole 500 Mg Inj (Flagyl 500 Mg (09/15/17 18:45) Consult General Surgery (09/15/17 ) Admit Order (Ed Use Only) (09/15/17 19:07) Labs Laboratory Tests Test 09/15/17 14:39 White Blood Count 18.2 TH/MM3 Red Blood Count 4.00 MIL/MM3 Hemoglobin 11.8 GM/DL Hematocrit 34.9 % Mean Corpuscular Volume 87.1 FL Mean Corpuscular Hemoglobin 29.3 PG Mean Corpuscular Hemoglobin Concent 33.7 % Red Cell Distribution Width 15.0 % Platelet Count 478 TH/MM3 Mean Platelet Volume 7.5 FL Neutrophils (%) (Auto) 83.1 % Lymphocytes (%) (Auto) 10.6 % Monocytes (%) (Auto) 4.3 % Eosinophils (%) (Auto) 1.4 % Basophils (%) (Auto) 0.6 % Neutrophils # (Auto) 15.2 TH/MM3 Lymphocytes # (Auto) 1.9 TH/MM3 Monocytes # (Auto) 0.8 TH/MM3 Eosinophils # (Auto) 0.3 TH/MM3 Basophils # (Auto) 0.1 TH/MM3 CBC Comment DIFF FINAL Differential Comment Blood Urea Nitrogen 12 MG/DL Creatinine 0.59 MG/DL Random Glucose 146 MG/DL Total Protein 7.1 GM/DL Albumin 3.1 GM/DL Calcium Level 8.5 MG/DL Alkaline Phosphatase 191 U/L Aspartate Amino Transf (AST/SGOT) 26 U/L Alanine Aminotransferase (ALT/SGPT) 47 U/L Total Bilirubin 0.6 MG/DL Sodium Level 136 MEQ/L Potassium Level 4.0 MEQ/L Chloride Level 104 MEQ/L Carbon Dioxide Level 23.5 MEQ/L Anion Gap 9 MEQ/L Estimat Glomerular Filtration Rate 106 ML/MIN Lactic Acid Level 1.4 mmol/L MDM Medical Decision Making Medical Screen Exam Complete: Yes Emergency Medical Condition: Yes Interpretation(s) Last Impressions Abdomen/Pelvis CT 09/15/17 1604 Signed Impressions: Service Date/Time: Friday, September 15, 2017 17:00 - CONCLUSION: 1. Status post cholecystectomy with findings of biloma in the gallbladder fossa. A tube is crossing the collection as above Raphael Bear MD 1833 PM. CBC WBC 18.2. 83 neutrophil. CMP within normal limit. Dr. lea 1.4. Alkaline phosphatase 191. Differential Diagnosis Differential diagnosis including biliary obstruction, seroma, infection, abscess , colitis, pyelonephritis, nephrolithiasis. Narrative Course 52-year-old female with right upper quadrant abdominal pain. Status post laparoscopic cholecystectomy 3 weeks ago. Normal saline solution 1 25 cc an hour. Azactam 1 g IV. Flagyl 500 mg IV. Spoke with Dr. Santoyo covering for Dr. Alcaraz. Austin Hanks MD Sep 15, 2017 16:52
[2017-09-15] MEDS ORDERED: IOHEXOL 350 MG/ML 10 ML VIAL (for RAD DIAG) IVCONTRAST ONE (17:15)
[2017-09-15] MEDS ORDERED: LANTUS2P SQ ×2 (17:25)
[2017-09-15] MEDS ORDERED: NAPR500 PO (17:25)
--- NOTE | 2017-09-15 17:56 | RADRPT ---
EXAM DATE/TIME: 09/15/2017 17:00 [facility] COMPARISON: MRCP W/O CONTRAST, September 06, 2017, 14:05. CT ABDOMEN & PELVIS W CONTRAST, September 04, 2017, 6:04 . INDICATIONS : Right upper abdomen pain, s/p cholecystectomy. IV CONTRAST: 100 cc Omnipaque 350 (iohexol) IV ORAL CONTRAST: No oral contrast ingested. RADIATION DOSE: 15.95 CTDIvol (mGy) MEDICAL HISTORY : Hypertension. Gastroesophageal reflux disease. Diabetes SURGICAL HISTORY : Appendectomy. Cholecystectomy.Hysterectomy. ENCOUNTER: Initial ACUITY: 1 day PAIN SCALE: 7/10 LOCATION: Right upper quadrant TECHNIQUE: Volumetric scanning of the abdomen and pelvis was performed. Using automated exposure control and ad justment of the mA and/or kV according to patient size, radiation dose was kept as low as reasonably achievable to obtain optimal diagnostic quality images. DICOM format image data is available electro nically for review and comparison. FINDINGS: Examination of the lung bases demonstrates no abnormality. No pleural fluid is identified. No pulmona ry nodules are present. The liver is normal in size and free of focal defects. There is history of ch olecystectomy and there is a fluid collection in the gallbladder fossa measuring 8.5 x 6.2 CM consist ed with biloma. Small amount of gas is present in the collection. A tube is traversing the collection and whether this reflects a T-tube is uncertain. This does not have the typical appearance of a perc utaneous drain. The spleen is normal in size and free of focal defects. The pancreas demonstrates no evidence of mass and there is no dilatation of the pancreatic duct. The adrenal glands and kidneys ap pear normal bilaterally. No hydronephrosis or mass lesions are identified. No free fluid is identifie d. Nonspecific normal sized para-aortic lymph nodes are identified. Examination of the pelvis demonstrates no evidence of free fluid or pelvic mass. No abnormally enlarg ed inguinal or retroperitoneal lymph nodes are present. The bladder is unremarkable. CONCLUSION: 1. Status post cholecystectomy with findings of biloma in the gallbladder fossa. A tube is crossing t he collection as above Raphael Bear MD on September 15, 2017 at 17:48 Board Certified Radiologist. This report was verified electronically.
[2017-09-15 18:33] VITALS: BP 98/63; PULSE 80; RESP 16; TEMP 99.4; O2SAT 96
[2017-09-15] MEDS ORDERED: AZTREONAM INJ 1,000 MG in SODIUM CHLORIDE 0.9% INJ 100 ML IV ONE (18:45)
[2017-09-15] MEDS ORDERED: metroNIDAZOLE 500 MG INJ 100 ML IV ONE (18:45)
--- NOTE | 2017-09-15 19:09 | HHI.HP ---
HPI [facility] Primary Care Physician Unknown Admission Diagnosis abdominal pain. Status post cholecystectomy. Diagnoses: (1) Sepsis Diagnosis: Principal (2) Post op infection Diagnosis: Principal (3) HTN (hypertension) Diagnosis: Principal (4) DM (diabetes mellitus) Diagnosis: Principal Travel History International Travel<30 Days: No Contact w/Intl Traveler <30 Da: No Traveled to Known Affected Are: No History of Present Illness This is a 52-year-old female with a PMH of HTN, Anxiety, Depression, Hyperlipidemia and DM who presented to ER with complaints of RUQ pain and bloating. Recent Lap Cholecystectomy for Gangrenous Cholecystitis by Dr. Alcaraz 09/07/17. Had been doing well post-op until last night. States she had mac and cheese, then developed significant bloating. Today w/ ongoing symptoms and RUQ pain. Pain is sharp, constant, severe 8/10, non-radiating. Reports subjective fever/chills in addition to nausea, but no vomiting. On arrival, BP 145/80, HR 96 O2 sat 96% on RA, Temp 101.3. WBC 18.2. Chemistry essentially unremarkable. Lactic Acid normal. UA negative. CT Abd/Pelvis s/p cholecystectomy findings of biloma in gallbladder fossa, tube crossing the collection. Dr. Santoyo consulted by ER physician, will evaluate for surgical intervention for possible abscess. S/p Azactam and Flagyl in ER. Review of Systems Except as stated in HPI: all other systems reviewed are Neg ROS: 14 point review of systems otherwise negative. Past Family Social History Past Medical History PMH: HTN, Anxiety, Depression, Hyperlipidemia and DM Past Surgical History PAST SURGICAL HISTORY: Appendectomy, Hysterectomy, Cholecystectomy, Open Heart Surgery Allergies: Coded Allergies: penicillin G (Unverified Adverse Reaction, Intermediate, hives, 09/05/17) Family History PAST FAMILY HISTORY: Reviewed. No h/o DM or CAD Social History PAST SOCIAL HISTORY: Negative for alcohol, tobacco or drugs. Physical Exam Vital Signs Vital Signs Date Time Temp Pulse Resp B/P (MAP) Pulse Ox O2 Delivery O2 Flow Rate FiO2 1/7/18 18:33 99.4 80 16 98/63 (75) 96 Room Air 09/15/17 16:35 100.0 79 16 108/65 (79) 96 Room Air 09/15/17 16:00 16 09/15/17 14:18 101.3 96 16 145/80 (101) 96 Physical Exam PE: GENERAL: Middle-aged white female in no acute distress, appears younger than stated age. HEENT: PERRLA, EOMI. No scleral icterus or conjunctival pallor. No lid lag or facial droop. CARDIOVASCULAR: Regular rate and rhythm. No obvious murmurs to auscultation. No chest tenderness to palpation. RESPIRATORY: No obvious rhonchi or wheezing. Clear to auscultation. Breath sounds equal bilaterally. GASTROINTESTINAL: Abdomen soft, RUQ tenderness to palpation, ELEN drain in place, nondistended. BS normal. MUSCULOSKELETAL: Extremities without clubbing, cyanosis, or edema. No obvious deformities. NEUROLOGICAL: Awake, alert and oriented x4. No focal neurologic deficits. Moving both upper and lower extremities spontaneously. Laboratory Laboratory Tests Test 09/15/17 14:39 White Blood Count 18.2 Red Blood Count 4.00 Hemoglobin 11.8 Hematocrit 34.9 Mean Corpuscular Volume 87.1 Mean Corpuscular Hemoglobin 29.3 Mean Corpuscular Hemoglobin Concent 33.7 Red Cell Distribution Width 15.0 Platelet Count 478 Mean Platelet Volume 7.5 Neutrophils (%) (Auto) 83.1 Lymphocytes (%) (Auto) 10.6 Monocytes (%) (Auto) 4.3 Eosinophils (%) (Auto) 1.4 Basophils (%) (Auto) 0.6 Neutrophils # (Auto) 15.2 Lymphocytes # (Auto) 1.9 Monocytes # (Auto) 0.8 Eosinophils # (Auto) 0.3 Basophils # (Auto) 0.1 CBC Comment DIFF FINAL Differential Comment Blood Urea Nitrogen 12 Creatinine 0.59 Random Glucose 146 Total Protein 7.1 Albumin 3.1 Calcium Level 8.5 Alkaline Phosphatase 191 Aspartate Amino Transf (AST/SGOT) 26 Alanine Aminotransferase (ALT/SGPT) 47 Total Bilirubin 0.6 Sodium Level 136 Potassium Level 4.0 Chloride Level 104 Carbon Dioxide Level 23.5 Anion Gap 9 Estimat Glomerular Filtration Rate 106 Lactic Acid Level 1.4 Date/Time Source Procedure Growth Status 09/15/17 14:49 Blood Peripheral Aerobic Blood Culture Pending Received 09/15/17 14:49 Blood Peripheral Anaerobic Blood Culture Pending Received Result Diagram: 09/15/17 1439 09/15/17 1439 Caprindahlia VTE Risk Assessment Caprini VTE Risk Assessment: No/Low Risk (score <= 1) Caprini Risk Assessment Model Point Value = 1 Point Value = 2 Point Value = 3 Point Value = 5 Age 41-60 Minor surgery BMI > 25 kg/m2 Swollen legs Varicose veins or History of unexplained or recurrent spontaneous Oral contraceptives or hormone replacement Sepsis (< 1 month) Serious lung disease, including pneumonia (< 1 month) Abnormal pulmonary function Acute myocardial infarction Congestive heart failure (< 1 month) History of inflammatory bowel disease Medical patient at bed rest Age 61-74 Arthroscopic surgery Major open surgery (> 45 min) Laparoscopic surgery (> 45 min) Malignancy Confined to bed (> 72 hours) Immobilizing plaster cast Central venous access Age >= 75 History of VTE Family history of VTE Factor V Leiden Prothrombin [id number] Lupus anticoagulant Anticardiolipin antibodies Elevated serum homocysteine Heparin-induced thrombocytopenia Other congenital or acquired thrombophilia Stroke (< 1 month) Elective arthroplasty Hip, pelvis, or leg fracture Acute spinal cord injury (< 1 month) Prophylaxis Regimen Total Risk Factor Score Risk Level Prophylaxis Regimen 0-1 Low Early ambulation 2 Moderate Order ONE of the following: *Sequential Compression Device (SCD) *Heparin 5000 units SQ BID 3-4 Higher Order ONE of the following medications: *Heparin 5000 units SQ TID *Enoxaparin/Lovenox 40 mg SQ daily (WT < 150 kg, CrCl > 30 mL/min) *Enoxaparin/Lovenox 30 mg SQ daily (WT < 150 kg, CrCl > 10-29 mL/min) *Enoxaparin/Lovenox 30 mg SQ BID (WT < 150 kg, CrCl > 30 mL/min) AND/OR *Sequential Compression Device (SCD) 5 or more Highest Order ONE of the following medications: *Heparin 5000 units SQ TID (Preferred with Epidurals) *Enoxaparin/Lovenox 40 mg SQ daily (WT < 150 kg, CrCl > 30 mL/min) *Enoxaparin/Lovenox 30 mg SQ daily (WT < 150 kg, CrCl > 10-29 mL/min) *Enoxaparin/Lovenox 30 mg SQ BID (WT < 150 kg, CrCl > 30 mL/min) AND *Sequential Compression Device (SCD) Assessment and Plan Problem List: (1) Sepsis ICD Code: A41.9 - Sepsis, unspecified organism (2) Post op infection ICD Code: T81.4XXA - Infection following a procedure, initial encounter (3) HTN (hypertension) ICD Code: I10 - Essential (primary) hypertension (4) DM (diabetes mellitus) ICD Code: E11.9 - Type 2 diabetes mellitus without complications Assessment and Plan A/P: 1. Sepsis: Temp 101.3, HR 96, WBC 18, Source-Possible post-op abscess. S/p Blood Cultures, Azactam/Flagyl, follow up cultures, continue IV Abx, IVF. Lactic Acid normal. 2. Post-Op Infection: S/p Lap Ольга 09/07/[address] Alcaraz for gangrenous cholecystitis, ELEN drain in place, ? non-functioning. CT Abd/Pelvis w/ s/p cholecystectomy and possible biloma, images reviewed by me. Appears to be post- op abscess. Dr. Santoyo consulted, will eval for possible surgical intervention. NPO after midnight. IVF, analgesics/antiemetics as needed. 3. DM: Sliding scale w/ Accu-Cheks. Hold Insulin as pt w/ decreased PO intake and NPO after midnight. Resume once taking adequate PO. 4. HTN: Episode of hypotension in ER w/ BP 90's systolic. Hold antihypertensives at this time. IVF. Monitor BP 5. DVT Prophylaxis: SCD/Teds. 6. Social work for d/c planning as needed. 7. Previous records/labs/imaging reviewed by me, case discussed at length w/ ER physician. Physician Certification 2 Midnight Certification Type: Admission for Inpatient Services Order for Inpatient Services The services are ordered in accordance with Medicare regulations or non- Medicare payer requirements, as applicable. In the case of services not specified as inpatient-only, they are appropriately provided as inpatient services in accordance with the 2-midnight benchmark. Estimated LOS (days): 2 days is the estimated time the patient will need to remain in the hospital, assuming treatment plan goals are met and no additional complications. Post-Hospital Plan: Not yet determined Margarita Hurtado MD Sep 15, 2017 19:09
[2017-09-15] MEDS ORDERED: BISACODYL 10 MG SUPP RECTAL PRN (19:15)
[2017-09-15] MEDS ORDERED: MAGNESIUM HYDROXIDE SUSP 30 ML CUP PO PRN (19:15)
[2017-09-15] MEDS ORDERED: LACTULOSE SYRUP 20 GM/30 ML CUP PO PRN (19:15)
[2017-09-15] MEDS ORDERED: GLUCAGON 1 MG/ML VIAL OTHER PRN (19:15)
[2017-09-15] MEDS ORDERED: ACETAMINOPHEN 325 MG TAB PO PRN (19:15)
[2017-09-15] MEDS ORDERED: SENNOSIDES 8.6 MG TAB PO PRN (19:15)
[2017-09-15] MEDS ORDERED: DEXTROSE 50% IN WATER 50 ML VIAL(D50) IV PUSH PRN (19:15)
[2017-09-15] MEDS ORDERED: ACETAMIN 325 MG/BUTALBITAL 50 MG/CAFFEINE 40 MG TAB PO PRN (19:15)
[2017-09-15] MEDS ORDERED: MORPHINE SULFATE 2 MG/ML INJ IV PUSH PRN (19:15)
[2017-09-15 19:17] LABS: BILIRUBIN, URINE NEG (NEG); BLOOD, URINE NEG (NEG); GLUCOSE,URINE NEG (NEG); KETONE, URINE NEG (NEG); NITRITE,URINE NEG (NEG); PH, URINE 6.5 (5.0-8.5); SQUAMOUS EPITHELIAL CELL URINE 3 /hpf (0-5); URINE COLOR YELLOW (YELLW/STRAW); URINE LEUKOCYTE ESTERASE SMALL (NEG)
[2017-09-15 19:46] VITALS: BP 98/63; PULSE 78; RESP 18; O2SAT 98
[2017-09-15] MEDS: SODIUM CHLOR 0.9% 1000 ML INJ 1,000 ML IV SCH (20:19)
[2017-09-15] MEDS: SODIUM CHLORIDE 0.9% FLUSH 10 ML FLUSH IV FLUSH SCH (20:50)
[2017-09-15 22:07] VITALS: BP 118/61; PULSE 81; RESP 20; TEMP 99; O2SAT 95
[2017-09-15 22:26] VITALS: PULSE 85
[2017-09-15] MEDS: DOCUSATE SODIUM 50 MG/SENNA 8.6 MG TAB PO SCH (22:26)
[2017-09-15] MEDS: INSULIN ASPART SUPPLEMENTAL SCALE SQ SCH (22:30)
[2017-09-15] MEDS: ACETAMINOPHEN/HYDROcodone 325 MG/5 MG TAB PO PRN (23:35)
[2017-09-16] VITALS (9 sets, daily range): BP systolic 109–137; BP diastolic 57–84; PULSE 76–98; RESP 17–20; TEMP 97.5–99.3; O2SAT 91–98
[2017-09-16] MEDS: metroNIDAZOLE 500 MG INJ 100 ML IV SCH ×3 (03:28→18:19)
[2017-09-16 07:27] LABS: AUTOMATED NEUTROPHIL # 10.3 TH/MM3 (1.8-7.7); BASOPHIL % 0.2 % (0.0-2.0); EOSINOPHIL # 0.1 TH/MM3 (0-0.4); EOSINOPHIL % 1.1 % (0.0-4.0); HEMOGLOBIN 10.1 GM/DL (11.6-15.3); LYMPHOCYTE # 1.8 TH/MM3 (1.0-4.8); MEAN CORPUSCULAR HGB CONC 33.7 % (32.0-36.0); MEAN PLATELET VOLUME 7.7 FL (7.0-11.0); MONO % 5.1 % (0.0-8.0); MONOCYTE # 0.7 TH/MM3 (0-0.9); NEUT % 79.6 % (16.0-70.0); PLATELET COUNT 426 TH/MM3 (150-450); RED BLOOD COUNT 3.37 MIL/MM3 (4.00-5.30); RED CELL DISTRIBUTION WIDTH 15.1 % (11.6-17.2); WHITE BLOOD COUNT 12.9 TH/MM3 (4.0-11.0)
[2017-09-16 07:57] LABS: ALBUMIN 2.4 GM/DL (3.4-5.0); ALKALINE PHOSPHATASE 144 U/L (45-117); ALT (GPT) 30 U/L (10-53); AST (GOT) 11 U/L (15-37); BICARBONATE 25.7 MEQ/L (21.0-32.0); BLOOD UREA NITROGEN 12 MG/DL (7-18); CHLORIDE 104 MEQ/L (98-107); CREATININE 0.67 MG/DL (0.50-1.00); GLOMERULAR FILTRATION RATE 92 ML/MIN (>89); GLUCOSE,RANDOM 197 MG/DL (74-106); SODIUM (NA) 139 MEQ/L (136-145); TOTAL BILIRUBIN ADULT 0.5 MG/DL (0.2-1.0); TOTAL PROTEIN 6.1 GM/DL (6.4-8.2)
[2017-09-16] MEDS: INSULIN ASPART SUPPLEMENTAL SCALE SQ SCH ×4 (08:00→22:28)
[2017-09-16] MEDS: DOCUSATE SODIUM 50 MG/SENNA 8.6 MG TAB PO SCH ×3 (09:00→21:54)
[2017-09-16] MEDS ORDERED: PNEUMOCOCCAL POLYVALENT INJ 25 MCG/0.5 ML SYR IM ONE (09:00)
[2017-09-16] MEDS: SODIUM CHLORIDE 0.9% FLUSH 10 ML FLUSH IV FLUSH SCH ×2 (09:00→21:55)
[2017-09-16] MEDS ORDERED: INFLUENZA VIRUS VACCINE (QUADRIVALENT) 0.5 ML SYR IM ONE (09:00)
[2017-09-16] MEDS ORDERED: diphenhydrAMINE HCL 50 MG/ML VIAL IV PUSH PRN (09:00)
[2017-09-16] MEDS: SODIUM CHLOR 0.9% 1000 ML INJ 1,000 ML IV SCH ×2 (09:10→15:05)
[2017-09-16] MEDS: CIPROFLOXACIN 400 MG PREMIX 200 ML IV SCH ×2 (09:11→21:55)
[2017-09-16] MEDS: PANTOPRAZOLE SOD 40 MG DELAYED RELEASE TAB PO SCH (09:12)
[2017-09-16] MEDS: SERTRALINE HCL 50 MG TAB PO SCH (09:12)
[2017-09-16] MEDS: ESCITALOPRAM OXALATE 10 MG TAB PO SCH (09:12)
[2017-09-16] MEDS: LISINOPRIL 5 MG TAB PO SCH (09:12)
--- NOTE | 2017-09-16 09:54 | HHI.PR ---
Subjective Remarks Follow-up for abdominal pain post lap stop his cholecystectomy Patient stated that she continues to have abdominal pain but has improved. Denied any nausea or vomiting. She has been afebrile since admission. No other complaints. Her nurse is at the bedside during the interview. Patient was seen by surgical team this morning. Objective Vitals Vital Signs Date Time Temp Pulse Resp B/P (MAP) Pulse Ox O2 Delivery O2 Flow Rate FiO2 09/16/17 07:49 99.3 80 17 132/60 (84) 95 09/16/17 05:19 97.5 78 20 109/58 (75) 98 09/16/17 00:20 99.2 87 20 133/58 (83) 97 09/15/17 22:26 85 09/15/17 22:07 99.0 81 20 118/61 (80) 95 09/15/17 20:45 09/15/17 19:46 78 18 98/63 (75) 98 Room Air 09/15/17 18:33 99.4 80 16 98/63 (75) 96 Room Air 09/15/17 16:35 100.0 79 16 108/65 (79) 96 Room Air 09/15/17 16:00 16 09/15/17 14:18 101.3 96 16 145/80 (101) 96 I/O 09/15/17 09/15/17 09/15/17 09/16/17 09/16/17 09/16/17 07:00 15:00 23:00 07:00 15:00 23:00 Intake Total 200 ml 580 ml Output Total 250 ml 20 ml Balance -50 ml 580 ml -20 ml Intake Oral 480 ml IV Total 200 ml 100 ml Output Urine Total 250 ml Drainage Total 20 ml # Voids 1 2 Result Diagram: 09/16/17 0535 09/16/17 0535 Objective Remarks GENERAL: in NAD CARDIOVASCULAR: Regular rate and rhythm without murmurs, gallops, or rubs. RESPIRATORY: Breath sounds equal bilaterally. No accessory muscle use. GASTROINTESTINAL: Abdomen soft, nondistended. + mild TTP in the RUQ. MUSCULOSKELETAL: No cyanosis, or edema. BACK: Nontender without obvious deformity. No CVA tenderness. Medications and IVs Current Medications Ibuprofen (Motrin) 800 mg ONCE ONCE PO Last administered on 09/15/17at 14:50; Start 09/15/17 at 14:45; Stop 09/15/17 at 14:46; Status DC Sodium Chloride (NS Flush) 2 ml UNSCH PRN IV FLUSH FLUSH AFTER USING IV ACCESS ; Start 09/15/17 at 16:15; Stop 09/15/17 at 19:27; Status DC Iohexol (Omnipaque 350 Inj) 100 ml STK-MED ONCE IVCONTRAST Last administered on 09/15/17at 17:15; Start 09/15/17 at 17:15; Stop 09/15/17 at 17:16; Status DC Aztreonam 1000 mg/ Sodium Chloride 100 ml @ 200 mls/hr ONCE ONCE IV Last administered on 09/15/17at 20:19; Start 09/15/17 at 18:45; Stop 09/15/17 at 19:14; Status DC Metronidazole 100 ml @ 100 mls/hr ONCE ONCE IV Last administered on 09/15/17at 18:53; Start 09/15/17 at 18:45; Stop 09/15/17 at 19:44; Status DC Ciprofloxacin/ Dextrose 200 ml @ 200 mls/hr Q12H IV Last administered on at 09:11; Start 09/16/17 at 09:00 Metronidazole 100 ml @ 100 mls/hr Q8H IV Last administered on 09/16/17at 03:28; Start 09/16/17 at 02:00 Dextrose (D50w (Vial) Inj) 50 ml UNSCH PRN IV PUSH HYPOGLYCEMIA-SEE COMMENTS; Start 09/15/17 at 19:15 Glucagon (Glucagon Inj) 1 mg UNSCH PRN OTHER HYPOGLYCEMIA-SEE COMMENTS; Start 09/15/17 at 19:15 Insulin Aspart (NovoLOG SUPPLEMENTAL SCALE) 1 ACHS SLIDING SCALE SQ ; Start 09/15/17 at 21:00 Sodium Chloride 1,000 ml @ 100 mls/hr Q10H IV Last administered on 09/16/17at 09 :10; Start 09/15/17 at 19:05 Sodium Chloride (NS Flush) 2 ml UNSCH PRN IV FLUSH FLUSH AFTER USING IV ACCESS ; Start 09/15/17 at 19:15 Sodium Chloride (NS Flush) 2 ml BID IV FLUSH ; Start 09/15/17 at 21:00 Ondansetron HCl (Zofran Inj) 4 mg Q6H PRN IVP NAUSEA OR VOMITING; Start at 19:15 Acetaminophen (Tylenol) 650 mg Q6H PRN PO FEVER/PAIN SCALE 1 TO 2; Start at 19:15 Acetaminophen/ Hydrocodone Bitart ([place] 5-325 Mg) 1 tab Q4H PRN PO PAIN SCALE 3 TO 5 Last administered on 09/15/17at 23:35; Start 09/15/17 at 19:15 Morphine Sulfate (Morphine Inj) 2 mg Q3H PRN IV PUSH Pain 6-10; Start 09/15/17 at 19:15 Senna/Docusate Sodium (Yoly-Colace) 1 tab BID PO ; Start 09/15/17 at 21:00 Magnesium Hydroxide (Milk Of Magnesia Liq) 30 ml Q12H PRN PO Mild constipation ; Start 09/15/17 at 19:15 Sennosides (Senokot) 17.2 mg Q12H PRN PO Moderate constipation; Start 09/15/17 at 19:15 Bisacodyl (Dulcolax Supp) 10 mg DAILY PRN RECTAL SEVERE CONSITIPATION; Start at 19:15 Lactulose (Lactulose Liq) 30 ml DAILY PRN PO SEVERE CONSITIPATION; Start at 19:15 Acetaminophen/ Butalbital/ Caffeine (Fioricet 325-50-40) 1 tab Q4H PRN PO HEADACHE; Start 09/15/17 at 19:15 Escitalopram Oxalate (Lexapro) 10 mg DAILY PO Last administered on 09/16/17at 09: 12; Start 09/16/17 at 09:00 Pantoprazole Sodium (Protonix) 40 mg DAILY PO Last administered on 09/16/17at 09: 12; Start 09/16/17 at 09:00 Sertraline HCl (Zoloft) 25 mg DAILY PO Last administered on 09/16/17at 09:12; Start 09/16/17 at 09:00 Lisinopril (Prinivil) 2.5 mg DAILY PO Last administered on 09/16/17at 09:12; Start 09/16/17 at 09:00 Pneumococcal Polyvalent Vaccine (Pneumovax-23 Inj) 25 mcg ONCE ONCE IM ; Start 09/16/17 at 09:00; Stop 09/16/17 at 09:01; Status DC Influenza Virus Vaccine (Flu (Quadrivalent) Vaccine Inj) 0.5 ml ONCE ONCE IM ; Start 09/16/17 at 09:00; Stop 09/16/17 at 09:01; Status DC Diphenhydramine HCl (Benadryl Inj) 25 mg Q6H PRN IV PUSH itch ; Start 09/16/17 at 09:00 A/P Problem List: (1) Sepsis ICD Code: A41.9 - Sepsis, unspecified organism (2) Post op infection ICD Code: T81.4XXA - Infection following a procedure, initial encounter (3) HTN (hypertension) ICD Code: I10 - Essential (primary) hypertension (4) DM (diabetes mellitus) ICD Code: E11.9 - Type 2 diabetes mellitus without complications Assessment and Plan This is a 52-year-old female with a recent diagnosis of gangrenous cholecystitis status post laparoscopic cholecystectomy who presented with abdominal pain and fever Sepsis: - Temp 101.3, HR 96, WBC 18, Source-Possible post-op abscess. -Clinically sepsis improved quickly. Lactic acid normal. Pending blood cultures. Continue with Azactam/Flagyl. Questionable Post-Op Infection: - S/p Lap Ольга 09/07/[address] Alcaraz for gangrenous cholecystitis, ELEN drain in place, ? non-functioning. - CT Abd/Pelvis w/ s/p cholecystectomy and possible biloma. -Continue with treatment as above. Pending surgical consult. Patient already seen by the surgeon. DM: Sliding scale w/ Accu-Cheks. -Insulin was held due to decreased oral intake. -On insulin signs scope. Continue Accu-Cheks. Adjust accordingly. HTN: -At the time of initial admission patient was hypotensive. Antihypertensive medication was held. At the moment patient is normotensive. Continue to monitor. Will restart medication if indicated. DVT Prophylaxis: SCD/Teds. Zaria Kohli MD Sep 16, 2017 09:54
[2017-09-16] MEDS ORDERED: SINCALIDE 5 MCG/5 ML VIAL IV ONE (11:28)
--- NOTE | 2017-09-16 12:13 | RADRPT ---
EXAM DATE/TIME: 09/16/2017 09:39 [facility] COMPARISON: CT ABDOMEN & PELVIS W CONTRAST, September 15, 2017, 17:00. INDICATIONS : Bile leak. Right upper quadrant pain. Cholecystectomy on 09/07/2017. DOSE: 4.1 mCi Tc99m Mebrofenin IV MEDICATION: 1.68 mcg Cholecystokinin IV; No symptomatic response. Cholecystokinin was administered by slow infusion over 8 minutes beginning at 50 minutes. MEDICAL HISTORY : Hypercholesterolemia. Hypertension. Diabetes mellitus type 2. SURGICAL HISTORY : Cholecystectomy. Hysterectomy. Hip suregery. ENCOUNTER: Initial ACUITY: 2 days PAIN SCALE: 2/10 LOCATION: Right upper quadrant TECHNIQUE: Following the intravenous administration of radiotracer, dynamic sequential image were performed with continuous acquisition. Time-activity curves were generated. FINDINGS: There is good extraction of radiotracer with activity seen in the common duct and small bowel at 10 m inutes. Patient is status post and cholecystectomy with biloma.. There is no evidence for extravasation or communication with biloma. CONCLUSION: Common duct widely patent as described above. No extravasation. Jignesh Landry MD FACR on September 16, 2017 at 12:08 Board Certified Radiologist. This report was verified electronically.
[2017-09-16 13:27] LABS: INTERNATIONAL NORMALIZED RATIO 1.1 RATIO; PROTHROMBIN TIME - PATIENT 10.7 SEC (9.8-11.6)
--- NOTE | 2017-09-16 13:27 | PD.CONS ---
HPI History of Present Illness This is a 52 year old female recently s/p cholecystectomy 09/07/17 who presented wit RUQ pain that started yesterday. She was discharged 09/11/17. Denies n/v, she is asking for food. Denies blood in stool, n/v. Admits loose stools since the cholecystectomy. Cholecystectomy was for gangrenous gallbladder. CT showed biloma gallbladder fossa. Had HIDA which showed widely patent CBD. (Kaia Zamudio) PFSH Past Medical History PMH: HTN, Anxiety, Depression, Hyperlipidemia and DM Past Surgical History PAST SURGICAL HISTORY: Appendectomy, Hysterectomy, Cholecystectomy, Open Heart Surgery (Kaia Zamudio) Coded Allergies: penicillin G (Verified Adverse Reaction, Intermediate, hives, 09/15/17) Family History PAST FAMILY HISTORY: Reviewed. No h/o DM or CAD Social History PAST SOCIAL HISTORY: Negative for alcohol, tobacco or drugs. (Kaia Zamudio) Review of Systems Constitutional: DENIES: Weight loss Endocrine: DENIES: Polydipsia Eyes: DENIES: Blurred vision Ears, nose, mouth, throat: DENIES: Hearing loss Respiratory: DENIES: Cough Cardiovascular: DENIES: Chest pain Gastrointestinal: COMPLAINS OF: Abdominal pain, Diarrhea, DENIES: Black stools , Bloody stools, Nausea, Vomiting Genitourinary: DENIES: Urinary incontinence Musculoskeletal: DENIES: Joint Swelling Integumentary: DENIES: Jaundice Hematologic/lymphatic: DENIES: Bruising Immunologic/allergic: DENIES: Eczema Neurologic: DENIES: Abnormal gait Psychiatric: DENIES: Confusion (Kaia Zaumdio) GI Exam Vitals I&O Vital Signs Date Time Temp Pulse Resp B/P (MAP) Pulse Ox O2 Delivery O2 Flow Rate FiO2 09/16/17 12:51 97.6 81 17 124/61 (82) 95 09/16/17 07:49 99.3 80 17 132/60 (84) 95 09/16/17 05:19 97.5 78 20 109/58 (75) 98 09/16/17 00:20 99.2 87 20 133/58 (83) 97 09/15/17 22:26 85 09/15/17 22:07 99.0 81 20 118/61 (80) 95 09/15/17 20:45 09/15/17 19:46 78 18 98/63 (75) 98 Room Air 09/15/17 18:33 99.4 80 16 98/63 (75) 96 Room Air 09/15/17 16:35 100.0 79 16 108/65 (79) 96 Room Air 09/15/17 16:00 16 09/15/17 14:18 101.3 96 16 145/80 (101) 96 I/O 09/15/17 09/15/17 09/15/17 09/16/17 09/16/17 09/16/17 07:00 15:00 23:00 07:00 15:00 23:00 Intake Total 200 ml 580 ml Output Total 250 ml 20 ml Balance -50 ml 580 ml -20 ml Intake Oral 480 ml IV Total 200 ml 100 ml Output Urine Total 250 ml Drainage Total 20 ml # Voids 1 2 Imaging Last Impressions Hepatobiliary Scan Nuclear Medicine 09/16/17 0000 Signed Impressions: Service Date/Time: Saturday, September 16, 2017 09:39 - CONCLUSION: Common duct widely patent as described above. No extravasation. Jignesh Landry MD FACR Abdomen/Pelvis CT 09/15/17 1604 Signed Impressions: Service Date/Time: Friday, September 15, 2017 17:00 - CONCLUSION: 1. Status post cholecystectomy with findings of biloma in the gallbladder fossa. A tube is crossing the collection as above Raphael Bear MD Laboratory Test 09/15/17 14:39 09/15/17 19:00 09/16/17 05:35 09/16/17 12:35 White Blood Count 18.2 TH/MM3 12.9 TH/MM3 Red Blood Count 4.00 MIL/MM3 3.37 MIL/MM3 Hemoglobin 11.8 GM/DL 10.1 GM/DL Hematocrit 34.9 % 30.0 % Mean Corpuscular Volume 87.1 FL 89.0 FL Mean Corpuscular Hemoglobin 29.3 PG 30.0 PG Mean Corpuscular Hemoglobin Concent 33.7 % 33.7 % Red Cell Distribution Width 15.0 % 15.1 % Platelet Count 478 TH/MM3 426 TH/MM3 Mean Platelet Volume 7.5 FL 7.7 FL Neutrophils (%) (Auto) 83.1 % 79.6 % Lymphocytes (%) (Auto) 10.6 % 14.0 % Monocytes (%) (Auto) 4.3 % 5.1 % Eosinophils (%) (Auto) 1.4 % 1.1 % Basophils (%) (Auto) 0.6 % 0.2 % Neutrophils # (Auto) 15.2 TH/MM3 10.3 TH/MM3 Lymphocytes # (Auto) 1.9 TH/MM3 1.8 TH/MM3 Monocytes # (Auto) 0.8 TH/MM3 0.7 TH/MM3 Eosinophils # (Auto) 0.3 TH/MM3 0.1 TH/MM3 Basophils # (Auto) 0.1 TH/MM3 0.0 TH/MM3 CBC Comment DIFF FINAL DIFF FINAL Differential Comment Blood Urea Nitrogen 12 MG/DL 12 MG/DL Creatinine 0.59 MG/DL 0.67 MG/DL Random Glucose 146 MG/DL 197 MG/DL Total Protein 7.1 GM/DL 6.1 GM/DL Albumin 3.1 GM/DL 2.4 GM/DL Calcium Level 8.5 MG/DL 8.0 MG/DL Alkaline Phosphatase 191 U/L 144 U/L Aspartate Amino Transf (AST/SGOT) 26 U/L 11 U/L Alanine Aminotransferase (ALT/SGPT) 47 U/L 30 U/L Total Bilirubin 0.6 MG/DL 0.5 MG/DL Sodium Level 136 MEQ/L 139 MEQ/L Potassium Level 4.0 MEQ/L 3.6 MEQ/L Chloride Level 104 MEQ/L 104 MEQ/L Carbon Dioxide Level 23.5 MEQ/L 25.7 MEQ/L Anion Gap 9 MEQ/L 9 MEQ/L Estimat Glomerular Filtration Rate 106 ML/MIN 92 ML/MIN Lactic Acid Level 1.4 mmol/L Urine Color YELLOW Urine Turbidity CLEAR Urine pH 6.5 Urine Specific Remus GREATER THAN 1.050 Urine Protein TRACE mg/dL Urine Glucose (UA) NEG mg/dL Urine Ketones NEG mg/dL Urine Occult Blood NEG Urine Nitrite NEG Urine Bilirubin NEG Urine Urobilinogen LESS THAN 2.0 MG/DL Urine Leukocyte Esterase SMALL Urine RBC 2 /hpf Urine WBC 2 /hpf Urine Squamous Epithelial Cells 3 /hpf Microscopic Urinalysis Comment CULT NOT INDICATED Date/Time Source Procedure Growth Status 09/15/17 14:49 Blood Peripheral Aerobic Blood Culture - Preliminary NO GROWTH IN 1 DAY Resulted 09/15/17 14:49 Blood Peripheral Anaerobic Blood Culture - Preliminary NO GROWTH IN 1 DAY Resulted Physical Examination HEENT: PERRL; normocephalic; atraumatic; no jaundice. CHEST: CTA CARDIAC: RRR ABDOMEN: Soft, obese, RUQ TTP; no hepatosplenomegaly; bowel sounds are present in all four quadrants. EXTREMITIES: No clubbing, cyanosis, or edema. SKIN: Normal; no rash; no jaundice. DEMOLITION HAMMER OPERATOR: No focal deficits; alert and oriented times three. (Kaia Zamudio) Assessment and Plan Plan ASSESSMENT - RUQ pain - ?biloma. s/p cholecystectomy. CT shows biloma. HIDA showed widely patent CBD. no need for ERCP with stent. GS following, pending CT guided drainage mass - mild elev ALP - leukocytosis - WBC decreasing, bcx pending PLAN - await drainage biloma - diet per GS - monitor labs - supportive care this pt seen by myself and Dr Caban and this note is on her behalf (Kaia Zamudio) Physician Comments seen, examined agree with above HIDA scan noted -no bile leak await ct guided drainage we will discuss with surgery if they still want us to proceed with ERCP-at this time does not seem to be indicated (Megan Caban MD) Kaia Zamudio Sep 16, 2017 13:27 Megan Caban MD Sep 16, 2017 17:00
--- NOTE | 2017-09-16 13:34 | HHI.PR ---
cc: Raphael Alcaraz MD Subjective Subjective Notes Re-admit last night for abdominal pain and distention after eating macaroni and cheese; CT abd/pelvis completed shows biloma in gallbladder fossa. Fever on admission 101.3 s/p laparoscopic cholecystectomy on 09/07/[address] Alcaraz Objective Vitals/I&O Vital Signs Date Time Temp Pulse Resp B/P (MAP) Pulse Ox O2 Delivery O2 Flow Rate FiO2 09/16/17 12:51 97.6 81 17 124/61 (82) 95 09/15/17 19:46 Room Air Labs Laboratory Tests Test 09/15/17 14:39 09/15/17 19:00 09/16/17 05:35 09/16/17 12:35 White Blood Count 18.2 12.9 Red Blood Count 4.00 3.37 Hemoglobin 11.8 10.1 Hematocrit 34.9 30.0 Mean Corpuscular Volume 87.1 89.0 Mean Corpuscular Hemoglobin 29.3 30.0 Mean Corpuscular Hemoglobin Concent 33.7 33.7 Red Cell Distribution Width 15.0 15.1 Platelet Count 478 426 Mean Platelet Volume 7.5 7.7 Neutrophils (%) (Auto) 83.1 79.6 Lymphocytes (%) (Auto) 10.6 14.0 Monocytes (%) (Auto) 4.3 5.1 Eosinophils (%) (Auto) 1.4 1.1 Basophils (%) (Auto) 0.6 0.2 Neutrophils # (Auto) 15.2 10.3 Lymphocytes # (Auto) 1.9 1.8 Monocytes # (Auto) 0.8 0.7 Eosinophils # (Auto) 0.3 0.1 Basophils # (Auto) 0.1 0.0 CBC Comment DIFF FINAL DIFF FINAL Differential Comment Blood Urea Nitrogen 12 12 Creatinine 0.59 0.67 Random Glucose 146 197 Total Protein 7.1 6.1 Albumin 3.1 2.4 Calcium Level 8.5 8.0 Alkaline Phosphatase 191 144 Aspartate Amino Transf (AST/SGOT) 26 11 Alanine Aminotransferase (ALT/SGPT) 47 30 Total Bilirubin 0.6 0.5 Sodium Level 136 139 Potassium Level 4.0 3.6 Chloride Level 104 104 Carbon Dioxide Level 23.5 25.7 Anion Gap 9 9 Estimat Glomerular Filtration Rate 106 92 Lactic Acid Level 1.4 Urine Color YELLOW Urine Turbidity CLEAR Urine pH 6.5 Urine Specific [place] GREATER THAN 1.050 Urine Protein TRACE Urine Glucose (UA) NEG Urine Ketones NEG Urine Occult Blood NEG Urine Nitrite NEG Urine Bilirubin NEG Urine Urobilinogen LESS THAN 2.0 Urine Leukocyte Esterase SMALL Urine RBC 2 Urine WBC 2 Urine Squamous Epithelial Cells 3 Microscopic Urinalysis Comment CULT NOT INDICATED Prothrombin Time 10.7 Prothromb Time International Ratio 1.1 Activated Partial Thromboplast Time 26.3 Date/Time Source Procedure Growth Status 09/15/17 14:49 Blood Peripheral Aerobic Blood Culture - Preliminary NO GROWTH IN 1 DAY Resulted 09/15/17 14:49 Blood Peripheral Anaerobic Blood Culture - Preliminary NO GROWTH IN 1 DAY Resulted Cardiovascular: Regular Lungs: Clear Abdomen: Other (lap sites c/d/i; ELEN with serous fluid; RUQ tenderness to palpation ) Extremities: No edema A/P Assessment and Plan 52 year old female s/p laparoscopic cholecystectomy on 09/07/[address] Alcaraz for gangrenous cholecystitis; back with abdominal pain; biloma found on CT scan -IR consult for drainage -HIDA shows open CBD -NPO until after IR procedure -Continues antibiotics Attending Statement The patient was prepped and draped in IR for drainage procedure when I was here to see her. Dr Andrade performed drainage, only serosanguinous fluid removed. No BILE. Postop hematoma in GB fossa, not unexpected given severity of necrotizing cholecystitis. The exam, history, and the medical decision-making described in the above note were completed with the assistance of the mid-level provider. I reviewed and agree with the findings presented. I attest that I had a [id number] encounter with the patient on the same day, and personally performed and documented my assessment and findings in the medical record. Parisa Martinez Sep 16, 2017 13:34 Raphael Alcaraz MD Sep 17, 2017 08:37
[2017-09-16] MEDS ORDERED: MIDAZOLAM HCL 2 MG/2 ML VIAL ONE ×2 (15:58→15:59)
[2017-09-16] MEDS ORDERED: IOHEXOL 350 MG/ML 50 ML BTL (for RAD DIAG) OTHER ONE (17:00)
--- NOTE | 2017-09-16 17:15 | PD.RAD ---
Post Procedure Progress Note Pre Procedure Diagnosis: (1) Fluid collection gallbladder fossa Post Procedure Diagnosis: (1) Seroma Procedure Date: Sep 16, 2017 Supervising Radiologist: Rich Andrade Proceduralist/Assist: Elena Del Real, RT(R)(), Hermann Rasheed RT(R) Anesthesia: Local, Analgesia, Conscious Sedation Plan of Activity Patient to Unit: ROPU Patient Condition: Good See PACS Report for procedural detail/treatment Drainage Procedure Procedure 1 Imaging Guidance: Fluoroscopy, Ultrasound Side: Right Procedure Type: Abscess Drainage (Gallbladder fossa fluid collection) Yi: 8 Drainage: Suction (Accordian) Fluid Removal (CCs): 50 Fluid Description: Other (Brown) Rich Andrade MD Sep 16, 2017 17:15
[2017-09-16] MEDS: ACETAMINOPHEN/HYDROcodone 325 MG/5 MG TAB PO PRN (19:00)
[2017-09-17] VITALS (8 sets, daily range): BP systolic 107–138; BP diastolic 57–74; PULSE 73–84; RESP 17–18; TEMP 96.7–99.5; O2SAT 93–95
[2017-09-17] MEDS: ACETAMINOPHEN/HYDROcodone 325 MG/5 MG TAB PO PRN ×5 (01:05→21:47)
[2017-09-17] MEDS: metroNIDAZOLE 500 MG INJ 100 ML IV SCH ×3 (01:05→17:38)
[2017-09-17] MEDS: SODIUM CHLOR 0.9% 1000 ML INJ 1,000 ML IV SCH ×3 (01:06→21:56)
[2017-09-17 07:39] LABS: HEMATOCRIT 30.2 % (35.0-46.0); HEMOGLOBIN 10.2 GM/DL (11.6-15.3); MEAN CELL VOLUME 88.6 FL (80.0-100.0); MEAN CORPUSCULAR HGB CONC 33.9 % (32.0-36.0); MEAN PLATELET VOLUME 7.3 FL (7.0-11.0); PLATELET COUNT 427 TH/MM3 (150-450); RED BLOOD COUNT 3.41 MIL/MM3 (4.00-5.30); RED CELL DISTRIBUTION WIDTH 14.6 % (11.6-17.2); WHITE BLOOD COUNT 9.4 TH/MM3 (4.0-11.0)
[2017-09-17 08:04] LABS: BICARBONATE 26.6 MEQ/L (21.0-32.0); CREATININE 0.57 MG/DL (0.50-1.00)
[2017-09-17] MEDS: DOCUSATE SODIUM 50 MG/SENNA 8.6 MG TAB PO SCH ×2 (08:29→21:00)
[2017-09-17] MEDS: SERTRALINE HCL 50 MG TAB PO SCH (08:30)
[2017-09-17] MEDS: LISINOPRIL 5 MG TAB PO SCH (08:30)
[2017-09-17] MEDS: INSULIN ASPART SUPPLEMENTAL SCALE SQ SCH ×4 (08:30→21:55)
[2017-09-17] MEDS: CIPROFLOXACIN 400 MG PREMIX 200 ML IV SCH ×2 (08:30→21:44)
[2017-09-17] MEDS: ESCITALOPRAM OXALATE 10 MG TAB PO SCH (08:30)
[2017-09-17] MEDS: PANTOPRAZOLE SOD 40 MG DELAYED RELEASE TAB PO SCH (08:30)
[2017-09-17] MEDS: SODIUM CHLORIDE 0.9% FLUSH 10 ML FLUSH IV FLUSH SCH ×2 (08:42→21:44)
--- NOTE | 2017-09-17 08:52 | HHI.PR ---
Subjective Subjective Notes pain at new drain site. Neither drain draining much. otherwise feels well. Objective Vitals/I&O Vital Signs Date Time Temp Pulse Resp B/P (MAP) Pulse Ox O2 Delivery O2 Flow Rate FiO2 09/17/17 07:52 98.0 82 17 124/57 (79) 94 09/15/17 19:46 Room Air Labs Laboratory Tests Test 09/16/17 12:35 09/17/17 07:23 Prothrombin Time 10.7 Prothromb Time International Ratio 1.1 Activated Partial Thromboplast Time 26.3 White Blood Count 9.4 Red Blood Count 3.41 Hemoglobin 10.2 Hematocrit 30.2 Mean Corpuscular Volume 88.6 Mean Corpuscular Hemoglobin 30.0 Mean Corpuscular Hemoglobin Concent 33.9 Red Cell Distribution Width 14.6 Platelet Count 427 Mean Platelet Volume 7.3 Blood Urea Nitrogen 7 Creatinine 0.57 Random Glucose 211 Calcium Level 8.0 Sodium Level 139 Potassium Level 3.6 Chloride Level 105 Carbon Dioxide Level 26.6 Anion Gap 7 Estimat Glomerular Filtration Rate 111 Date/Time Source Procedure Growth Status 09/15/17 14:49 Blood Peripheral Aerobic Blood Culture - Preliminary NO GROWTH IN 1 DAY Resulted 09/15/17 14:49 Blood Peripheral Anaerobic Blood Culture - Preliminary NO GROWTH IN 1 DAY Resulted Abdomen: Non-distended, Non-tender, Other (drain sites look fine. Nothing in surgical drain, removed. Minimal brown serous fluid in IR drain, left alone.) Extremities: No edema, Perfused A/P Assessment and Plan Postop lap federica for necrotizing cholecystitis. Postop hematoma in GB fossa. Fever, elevated WBC, improved on abx and after drainage. Cultures all negative thus far. Surgical drain removed. Leave IR drain another day or two. Follow cultures. Patient looks well. Raphael Alcaraz MD Sep 17, 2017 08:52
--- NOTE | 2017-09-17 11:22 | HHI.PR ---
Subjective Remarks Follow-up for drain placement by IR due to postop seroma Patient complaining of feeling nauseous and has not received her anti-emetic yet. She stated she had an omelette and did not feel like she ate much. She stated that she thinks it's her oral medication. Otherwise denies any vomiting. Did not complained of pain. She remains afebrile. Patient is no other complaints. Objective Vitals Vital Signs Date Time Temp Pulse Resp B/P (MAP) Pulse Ox O2 Delivery O2 Flow Rate FiO2 09/17/17 10:05 97.5 09/17/17 07:52 98.0 82 17 124/57 (79) 94 09/17/17 04:00 98.5 78 18 107/74 (85) 93 09/17/17 00:00 99.5 83 18 112/69 (83) 94 09/16/17 20:00 98.2 98 18 116/57 (76) 91 09/16/17 20:00 18 09/16/17 17:45 79 18 129/79 (96) 93 09/16/17 17:15 80 18 137/79 (98) 95 09/16/17 16:55 98.7 84 18 136/84 (101) 94 09/16/17 12:51 97.6 81 17 124/61 (82) 95 I/O 09/16/17 09/16/17 09/16/17 09/17/17 09/17/17 09/17/17 06:59 14:59 22:59 06:59 14:59 22:59 Intake Total 580 ml 0 ml 720 ml Output Total 20 ml 150 ml Balance 580 ml -20 ml -150 ml 720 ml Intake Oral 480 ml 0 ml 720 ml IV Total 100 ml Drainage Total 20 ml 150 ml # Voids 2 4 3 # Bowel Movements 0 Result Diagram: 09/17/17 0723 09/17/17 0723 Imaging Last Impressions Hepatobiliary Scan Nuclear Medicine 09/16/17 0000 Signed Impressions: Service Date/Time: Saturday, September 16, 2017 09:39 - CONCLUSION: Common duct widely patent as described above. No extravasation. Jignesh Landry MD FACR Abdomen/Pelvis CT 09/15/17 1604 Signed Impressions: Service Date/Time: Friday, September 15, 2017 17:00 - CONCLUSION: 1. Status post cholecystectomy with findings of biloma in the gallbladder fossa. A tube is crossing the collection as above Raphael Bear MD Objective Remarks GENERAL: in NAD looks very comfortable. I saw the patient thru the window prior to entering the room she was sitting on the commode looked very comfortable. CARDIOVASCULAR: Regular rate and rhythm without murmurs, gallops, or rubs. RESPIRATORY: Breath sounds equal bilaterally. No accessory muscle use. GASTROINTESTINAL: Abdomen soft, nondistended. + mild TTP at the drain site MUSCULOSKELETAL: No cyanosis, or edema. BACK: Nontender without obvious deformity. No CVA tenderness. Medications and IVs Current Medications Ibuprofen (Motrin) 800 mg ONCE ONCE PO Last administered on 09/15/17at 14:50; Start 09/15/17 at 14:45; Stop 09/15/17 at 14:46; Status DC Sodium Chloride (NS Flush) 2 ml UNSCH PRN IV FLUSH FLUSH AFTER USING IV ACCESS ; Start 09/15/17 at 16:15; Stop 09/15/17 at 19:27; Status DC Iohexol (Omnipaque 350 Inj) 100 ml STK-MED ONCE IVCONTRAST Last administered on 09/15/17at 17:15; Start 09/15/17 at 17:15; Stop 09/15/17 at 17:16; Status DC Aztreonam 1000 mg/ Sodium Chloride 100 ml @ 200 mls/hr ONCE ONCE IV Last administered on 09/15/17at 20:19; Start 09/15/17 at 18:45; Stop 09/15/17 at 19:14; Status DC Metronidazole 100 ml @ 100 mls/hr ONCE ONCE IV Last administered on 09/15/17at 18:53; Start 09/15/17 at 18:45; Stop 09/15/17 at 19:44; Status DC Ciprofloxacin/ Dextrose 200 ml @ 200 mls/hr Q12H IV Last administered on at 08:30; Start 09/16/17 at 09:00 Metronidazole 100 ml @ 100 mls/hr Q8H IV Last administered on 09/17/17at 10:50; Start 09/16/17 at 02:00 Dextrose (D50w (Vial) Inj) 50 ml UNSCH PRN IV PUSH HYPOGLYCEMIA-SEE COMMENTS; Start 09/15/17 at 19:15 Glucagon (Glucagon Inj) 1 mg UNSCH PRN OTHER HYPOGLYCEMIA-SEE COMMENTS; Start 09/15/17 at 19:15 Insulin Aspart (NovoLOG SUPPLEMENTAL SCALE) 1 ACHS SLIDING SCALE SQ Last administered on 09/17/17at 08:30; Start 09/15/17 at 21:00 Sodium Chloride 1,000 ml @ 100 mls/hr Q10H IV Last administered on 09/17/17at 01 :06; Start 09/15/17 at 19:05 Sodium Chloride (NS Flush) 2 ml UNSCH PRN IV FLUSH FLUSH AFTER USING IV ACCESS ; Start 09/15/17 at 19:15 Sodium Chloride (NS Flush) 2 ml BID IV FLUSH Last administered on 09/16/17at 21: 55; Start 09/15/17 at 21:00 Ondansetron HCl (Zofran Inj) 4 mg Q6H PRN IVP NAUSEA OR VOMITING; Start at 19:15 Acetaminophen (Tylenol) 650 mg Q6H PRN PO FEVER/PAIN SCALE 1 TO 2; Start at 19:15 Acetaminophen/ Hydrocodone Bitart (Mason 5-325 Mg) 1 tab Q4H PRN PO PAIN SCALE 3 TO 5 Last administered on 09/17/17at 08:29; Start 09/15/17 at 19:15 Morphine Sulfate (Morphine Inj) 2 mg Q3H PRN IV PUSH Pain 6-10; Start 09/15/17 at 19:15 Senna/Docusate Sodium (Yoly-Colace) 1 tab BID PO Last administered on 09/17/17at 08:29; Start 09/15/17 at 21:00 Magnesium Hydroxide (Milk Of Magnesia Liq) 30 ml Q12H PRN PO Mild constipation ; Start 09/15/17 at 19:15 Sennosides (Senokot) 17.2 mg Q12H PRN PO Moderate constipation; Start 09/15/17 at 19:15 Bisacodyl (Dulcolax Supp) 10 mg DAILY PRN RECTAL SEVERE CONSITIPATION; Start at 19:15 Lactulose (Lactulose Liq) 30 ml DAILY PRN PO SEVERE CONSITIPATION; Start at 19:15 Acetaminophen/ Butalbital/ Caffeine (Fioricet 325-50-40) 1 tab Q4H PRN PO HEADACHE; Start 09/15/17 at 19:15 Escitalopram Oxalate (Lexapro) 10 mg DAILY PO Last administered on 09/17/17at 08: 30; Start 09/16/17 at 09:00 Pantoprazole Sodium (Protonix) 40 mg DAILY PO Last administered on 09/17/17at 08: 30; Start 09/16/17 at 09:00 Sertraline HCl (Zoloft) 25 mg DAILY PO Last administered on 09/17/17at 08:30; Start 09/16/17 at 09:00 Lisinopril (Prinivil) 2.5 mg DAILY PO Last administered on 09/17/17at 08:30; Start 09/16/17 at 09:00 Pneumococcal Polyvalent Vaccine (Pneumovax-23 Inj) 25 mcg ONCE ONCE IM ; Start 09/16/17 at 09:00; Stop 09/16/17 at 09:01; Status DC Influenza Virus Vaccine (Flu (Quadrivalent) Vaccine Inj) 0.5 ml ONCE ONCE IM ; Start 09/16/17 at 09:00; Stop 09/16/17 at 09:01; Status DC Diphenhydramine HCl (Benadryl Inj) 25 mg Q6H PRN IV PUSH itch ; Start 09/16/17 at 09:00 Sincalide (Kinevac Inj) 1.6 mcg STK-MED ONCE IV Last administered on 09/16/17 11:28; Start 09/16/17 at 11:28; Stop 09/16/17 at 11:29; Status DC Fentanyl Citrate (fentaNYL INJ) 100 mcg STK-MED ONCE .ROUTE Last administered on 09/16/17 15:58; Start 09/16/17 at 15:58; Stop 09/16/17 at 15:59; Status DC Midazolam HCl (Versed Inj) 2 mg STK-MED ONCE .ROUTE Last administered on 15:58; Start 09/16/17 at 15:58; Stop 09/16/17 at 15:59; Status DC Fentanyl Citrate (fentaNYL INJ) 100 mcg STK-MED ONCE .ROUTE Last administered on 09/16/17at 15:59; Start 09/16/17 at 15:59; Stop 09/16/17 at 16:00; Status DC Midazolam HCl (Versed Inj) 2 mg STK-MED ONCE .ROUTE Last administered on at 15:59; Start 09/16/17 at 15:59; Stop 09/16/17 at 16:00; Status DC Iohexol (Omnipaque 350 Inj) 5 ml STK-MED ONCE OTHER Last administered on at 17:00; Start 09/16/17 at 17:00; Stop 09/16/17 at 17:01; Status DC A/P Problem List: (1) Sepsis ICD Code: A41.9 - Sepsis, unspecified organism (2) Post op infection ICD Code: T81.4XXA - Infection following a procedure, initial encounter (3) HTN (hypertension) ICD Code: I10 - Essential (primary) hypertension (4) DM (diabetes mellitus) ICD Code: E11.9 - Type 2 diabetes mellitus without complications Assessment and Plan This is a 52-year-old female with a recent diagnosis of necrotizing cholecystitis status post laparoscopic cholecystectomy who presented with abdominal pain and fever Sepsis: - Temp 101.3, HR 96, WBC 18, Source-Possible post-op abscess. -Clinically improved quickly. Lactic acid normal. Pending blood cultures. Continue with Azactam/Flagyl. Post op seroma in the GB fossa - S/p Lap Ольга 09/07/[address] Alcaraz for necrotizing cholecystitis. - CT Abd/Pelvis w/ s/p cholecystectomy and possible biloma. -Status post drain placed by IR. -Per general surgeon keep drain in for 1-2 more days. DM: Sliding scale w/ Accu-Cheks. -Insulin was held due to decreased oral intake. -On insulin signs scope. Continue Accu-Cheks. Adjust accordingly. HTN: -At the time of initial admission patient was hypotensive. Antihypertensive medication was held. At the moment patient is normotensive. Continue to monitor. Will restart medication if indicated. DVT Prophylaxis: SCD/Teds. Discharge Planning Clinically patient is doing well. Most likely discharge in 1-2 more days if cleared by general surgeon. Zaria Kohli MD Sep 17, 2017 11:22
--- NOTE | 2017-09-17 15:04 | HHI.GIFU ---
Subjective Remarks Pt resting in bed, in no apparent distress. Complaining of pain to her drain site. Denies nausea, vomiting. Ate most of her lunch, tolerating. (Kathryn Hitchcock) Objective Vitals I&O Vital Signs Date Time Temp Pulse Resp B/P (MAP) Pulse Ox O2 Delivery O2 Flow Rate FiO2 09/17/17 12:00 97.2 77 17 122/57 (78) 95 09/17/17 10:05 97.5 09/17/17 07:52 98.0 82 17 124/57 (79) 94 09/17/17 04:00 98.5 78 18 107/74 (85) 93 09/17/17 00:00 99.5 83 18 112/69 (83) 94 09/16/17 20:00 98.2 98 18 116/57 (76) 91 09/16/17 20:00 18 09/16/17 17:45 79 18 129/79 (96) 93 09/16/17 17:15 80 18 137/79 (98) 95 09/16/17 16:55 98.7 84 18 136/84 (101) 94 I/O 09/16/17 09/16/17 09/16/17 09/17/17 09/17/17 09/17/17 06:59 14:59 22:59 06:59 14:59 22:59 Intake Total 580 ml 0 ml 720 ml Output Total 20 ml 150 ml Balance 580 ml -20 ml -150 ml 720 ml Intake Oral 480 ml 0 ml 720 ml IV Total 100 ml Drainage Total 20 ml 150 ml # Voids 2 4 3 # Bowel Movements 0 Laboratory Laboratory Tests Test 09/17/17 07:23 White Blood Count 9.4 Red Blood Count 3.41 Hemoglobin 10.2 Hematocrit 30.2 Mean Corpuscular Volume 88.6 Mean Corpuscular Hemoglobin 30.0 Mean Corpuscular Hemoglobin Concent 33.9 Red Cell Distribution Width 14.6 Platelet Count 427 Mean Platelet Volume 7.3 Blood Urea Nitrogen 7 Creatinine 0.57 Random Glucose 211 Calcium Level 8.0 Sodium Level 139 Potassium Level 3.6 Chloride Level 105 Carbon Dioxide Level 26.6 Anion Gap 7 Estimat Glomerular Filtration Rate 111 Date/Time Source Procedure Growth Status 09/15/17 14:49 Blood Peripheral Aerobic Blood Culture - Preliminary NO GROWTH IN 2 DAYS Resulted 09/15/17 14:49 Blood Peripheral Anaerobic Blood Culture - Preliminary NO GROWTH IN 2 DAYS Resulted Imaging Last Impressions Hepatobiliary Scan Nuclear Medicine 09/16/17 0000 Signed Impressions: Service Date/Time: Saturday, September 16, 2017 09:39 - CONCLUSION: Common duct widely patent as described above. No extravasation. Jignesh Landry MD FACR Abdomen/Pelvis CT 09/15/17 1604 Signed Impressions: Service Date/Time: Friday, September 15, 2017 17:00 - CONCLUSION: 1. Status post cholecystectomy with findings of biloma in the gallbladder fossa. A tube is crossing the collection as above Raphael Bear MD Physical Exam HEENT: Normocephalic; atraumatic CHEST: Even/unlabored. CARDIAC: RRR ABDOMEN: Round, nontender, bowel sounds active. Accordion drain with 30 mL fluid in collection bag. Dressing dry and intact. EXTREMITIES: No clubbing, cyanosis, or edema. SKIN: Normal; no rash; no jaundice. HEADING PINNER: No focal deficits; alert and oriented times three. (Kathryn Hitchcock) Assessment and Plan Plan ASSESSMENT - RUQ pain - ?biloma. s/p cholecystectomy. CT shows biloma. HIDA showed widely patent CBD. no need for ERCP with stent. GS following, pending CT guided drainage mass - mild elev ALP - leukocytosis - WBC decreasing, bcx pending (09/17) --> S/P accordion drain placed by IR for postop hematoma S/P lap cholecystectomy for necrotizing cholecystitis Pt complaining of pain to drain site. 30mL of fluid in collection bag. Dressing is dry and intact. WBCs improving. Cultures so far negative for growth. Pt on Cipro and Flagyl. Currently tolerating diet. No complaints of nausea and vomiting at this time but reports occasional nausea with movement, related to chronic vertigo. PLAN - Continue to monitor output from accordion drain - Continue antibiotics - OLMAN - Await culture - Supportive care This patient has been seen and examined by myself and Dr. Caban and this note is written on her behalf (Kathryn Hitchcock) Physician Comments agree with above gi will sign off call us if ercp still needed at this time not indicated (Megan Caban MD) Kathryn Hitchcock Sep 17, 2017 15:04 Megan Caban MD Sep 17, 2017 19:21
[2017-09-18] VITALS (7 sets, daily range): BP systolic 118–139; BP diastolic 59–71; PULSE 65–85; RESP 14–20; TEMP 96–99.1; O2SAT 91–94
[2017-09-18] MEDS: ACETAMINOPHEN/HYDROcodone 325 MG/5 MG TAB PO PRN ×5 (01:54→22:48)
[2017-09-18] MEDS: metroNIDAZOLE 500 MG INJ 100 ML IV SCH ×3 (01:55→17:29)
[2017-09-18] MEDS: ONDANSETRON HCL 4 MG/2 ML VIAL IVP PRN (05:48)
[2017-09-18] MEDS: SODIUM CHLOR 0.9% 1000 ML INJ 1,000 ML IV SCH ×2 (07:05→14:23)
[2017-09-18] MEDS: CIPROFLOXACIN 400 MG PREMIX 200 ML IV SCH ×2 (08:14→22:49)
[2017-09-18] MEDS: LISINOPRIL 5 MG TAB PO SCH (08:16)
[2017-09-18] MEDS: SERTRALINE HCL 50 MG TAB PO SCH (08:17)
[2017-09-18] MEDS: ESCITALOPRAM OXALATE 10 MG TAB PO SCH (08:17)
[2017-09-18] MEDS: DOCUSATE SODIUM 50 MG/SENNA 8.6 MG TAB PO SCH ×2 (08:17→22:46)
[2017-09-18] MEDS: PANTOPRAZOLE SOD 40 MG DELAYED RELEASE TAB PO SCH (08:17)
[2017-09-18] MEDS: INSULIN ASPART SUPPLEMENTAL SCALE SQ SCH ×4 (08:18→22:59)
[2017-09-18] MEDS: SODIUM CHLORIDE 0.9% FLUSH 10 ML FLUSH IV FLUSH SCH ×2 (08:19→22:51)
[2017-09-18 09:16] LABS: HEMATOCRIT 30.2 % (35.0-46.0); HEMOGLOBIN 10.3 GM/DL (11.6-15.3); MEAN CELL VOLUME 88.5 FL (80.0-100.0); MEAN CORPUSCULAR HEMOGLOBIN 30.1 PG (27.0-34.0); MEAN PLATELET VOLUME 7.9 FL (7.0-11.0); PLATELET COUNT 456 TH/MM3 (150-450); RED BLOOD COUNT 3.41 MIL/MM3 (4.00-5.30); RED CELL DISTRIBUTION WIDTH 14.8 % (11.6-17.2); WHITE BLOOD COUNT 7.8 TH/MM3 (4.0-11.0)
[2017-09-18 09:39] LABS: BICARBONATE 26.7 MEQ/L (21.0-32.0); CALCIUM 8.5 MG/DL (8.5-10.1); CREATININE 0.67 MG/DL (0.50-1.00)
--- NOTE | 2017-09-18 14:20 | HHI.PR ---
cc: Raphael Alcaraz MD Subjective Subjective Notes Resting in bed C/o headache Objective Vitals/I&O Vital Signs Date Time Temp Pulse Resp B/P (MAP) Pulse Ox O2 Delivery O2 Flow Rate FiO2 09/18/17 12:00 96.0 83 18 135/62 (86) 94 09/15/17 19:46 Room Air Labs Laboratory Tests Test 09/18/17 06:49 White Blood Count 7.8 Red Blood Count 3.41 Hemoglobin 10.3 Hematocrit 30.2 Mean Corpuscular Volume 88.5 Mean Corpuscular Hemoglobin 30.1 Mean Corpuscular Hemoglobin Concent 34.0 Red Cell Distribution Width 14.8 Platelet Count 456 Mean Platelet Volume 7.9 Blood Urea Nitrogen 9 Creatinine 0.67 Random Glucose 205 Calcium Level 8.5 Sodium Level 138 Potassium Level 3.6 Chloride Level 104 Carbon Dioxide Level 26.7 Anion Gap 7 Estimat Glomerular Filtration Rate 92 Date/Time Source Procedure Growth Status 09/15/17 14:49 Blood Peripheral Aerobic Blood Culture - Preliminary NO GROWTH IN 3 DAYS Resulted 09/15/17 14:49 Blood Peripheral Anaerobic Blood Culture - Preliminary NO GROWTH IN 3 DAYS Resulted Cardiovascular: Regular Lungs: Clear Abdomen: Non-distended, Non-tender, Other (lap sites c/d/i; IR placed drain with very minimal clear brown fluid ) Extremities: No edema A/P Assessment and Plan 52 year old female s/p laparoscopic cholecystectomy on 09/07/[address] Alcaraz for gangrenous cholecystitis; back with abdominal pain; biloma found on CT scan -S/p IR placed drainage -Tolerating regular diet -DC IVF -IV antibiotics -Likely home tomorrow ---will evaluate drain for output Attending Statement The exam, history, and the medical decision-making described in the above note were completed with the assistance of the mid-level provider. I reviewed and agree with the findings presented. I attest that I had a [id number] encounter with the patient on the same day, and personally performed and documented my assessment and findings in the medical record. Parisa Martinez Sep 18, 2017 14:20 Raphael Alcaraz MD Sep 19, 2017 13:37
--- NOTE | 2017-09-18 14:35 | HHI.PR ---
Subjective Remarks Abdominal pain still present. Drain is still present. No sepsis today. Objective Vital Signs Date Time Temp Pulse Resp B/P (MAP) Pulse Ox O2 Delivery O2 Flow Rate FiO2 09/18/17 12:00 96.0 83 18 135/62 (86) 94 09/18/17 08:00 98.4 65 17 126/69 (88) 91 09/18/17 05:59 76 09/18/17 04:00 98.2 85 18 124/59 (80) 94 09/18/17 00:00 99.1 75 20 139/63 (88) 92 09/17/17 20:00 98.4 84 18 138/63 (88) 94 09/17/17 16:00 74 09/17/17 16:00 96.7 73 17 130/61 (84) 94 I/O 09/17/17 09/17/17 09/17/17 09/18/17 09/18/17 09/18/17 07:00 15:00 23:00 07:00 15:00 23:00 Intake Total 720 ml 300 ml 3660 ml 1020 ml Output Total 400 ml Balance 720 ml 300 ml 3660 ml 620 ml Intake Oral 720 ml 1460 ml 720 ml IV Total 300 ml 2200 ml 300 ml Output Urine Total 400 ml # Voids 3 9 2 # Bowel Movements 2 0 Result Diagram: 09/18/17 0649 09/18/17 0649 Objective Remarks GENERAL: NAD, A&Ox3 HEAD: Normocephalic. NECK: Supple, trachea midline. No lymphadenopathy. EYES: No scleral icterus. No injection or drainage. CARDIOVASCULAR: Regular rate and rhythm without murmurs, gallops, or rubs. RESPIRATORY: Breath sounds equal bilaterally. No accessory muscle use. GASTROINTESTINAL: Abdomen soft, non-tender, nondistended. Abdominal drain present. MUSCULOSKELETAL: No cyanosis, or edema. SKIN: Warm and dry. NEURO: No focal neurological deficitis. A/P Problem List: (1) Seroma (2) Fluid collection gallbladder fossa (3) Abdominal pain ICD Code: R10.9 - Unspecified abdominal pain (4) Post op infection ICD Code: T81.4XXA - Infection following a procedure, initial encounter Assessment and Plan 52-year-old female with a recent diagnosis of necrotizing cholecystitis status post laparoscopic cholecystectomy who presented with abdominal pain and fever with seroma. Sepsis Fevers Post op seroma in the GB fossa Resolved. Continue Azactam and Flagyl Screen for autoimmune conditions as alternate source of fevers Diabetes mellitus type 2 Follow blood sugars Insulin sliding scale Diabetic diet HTN Follow BP No changes to baseline treatments today DVT Prophylaxis SCD/Teds Discharge Planning Discharge pending surgical clearance Nathaniel Floyd MD Sep 18, 2017 14:35
[2017-09-19] VITALS (8 sets, daily range): BP systolic 125–146; BP diastolic 62–76; PULSE 69–89; RESP 16–19; TEMP 97.5–99.2; O2SAT 92–95
[2017-09-19] MEDS: metroNIDAZOLE 500 MG INJ 100 ML IV SCH ×2 (01:28→09:52)
[2017-09-19] MEDS: ONDANSETRON HCL 4 MG/2 ML VIAL IVP PRN (04:34)
[2017-09-19] MEDS: ACETAMINOPHEN/HYDROcodone 325 MG/5 MG TAB PO PRN ×2 (04:36→09:40)
[2017-09-19] MEDS: SODIUM CHLOR 0.9% 1000 ML INJ 1,000 ML IV SCH (04:38)
[2017-09-19] MEDS: SODIUM CHLORIDE 0.9% FLUSH 10 ML FLUSH IV FLUSH SCH ×2 (09:00→22:15)
[2017-09-19] MEDS: DOCUSATE SODIUM 50 MG/SENNA 8.6 MG TAB PO SCH ×2 (09:40→21:00)
[2017-09-19] MEDS: CIPROFLOXACIN 400 MG PREMIX 200 ML IV SCH (09:41)
[2017-09-19] MEDS: LISINOPRIL 5 MG TAB PO SCH (09:41)
[2017-09-19] MEDS: SERTRALINE HCL 50 MG TAB PO SCH (09:41)
[2017-09-19] MEDS: INSULIN ASPART SUPPLEMENTAL SCALE SQ SCH ×4 (09:41→22:09)
[2017-09-19] MEDS: PANTOPRAZOLE SOD 40 MG DELAYED RELEASE TAB PO SCH (09:41)
[2017-09-19] MEDS: ESCITALOPRAM OXALATE 10 MG TAB PO SCH (09:42)
[2017-09-19 10:02] LABS: RHEUMATOID FACTOR SCREEN NEGATIVE (NEGATIVE)
--- NOTE | 2017-09-19 11:17 | HHI.PR ---
cc: Raphael Alcaraz MD Subjective Subjective Notes Resting in bed Nervous about getting drain out C/o headache Objective Vitals/I&O Vital Signs Date Time Temp Pulse Resp B/P (MAP) Pulse Ox O2 Delivery O2 Flow Rate FiO2 09/19/17 08:00 99.2 82 17 146/67 (93) 92 09/15/17 19:46 Room Air Labs Laboratory Tests Test 09/19/17 08:24 Erythrocyte Sedimentation Rate 74 C-Reactive Protein 4.40 Rheumatoid Factor Screen NEGATIVE Rheumatoid Factor Titer Date/Time Source Procedure Growth Status 09/15/17 14:49 Blood Peripheral Aerobic Blood Culture - Preliminary NO GROWTH IN 4 DAYS Resulted 09/15/17 14:49 Blood Peripheral Anaerobic Blood Culture - Preliminary NO GROWTH IN 4 DAYS Resulted Cardiovascular: Regular Lungs: Clear Abdomen: Other (IR placed drain with minimal output---removed at bedside and placed dry 4x4 with paper tape ) Extremities: No edema A/P Assessment and Plan 52 year old female s/p laparoscopic cholecystectomy on 09/07/[address] Alcaraz for gangrenous cholecystitis; back with abdominal pain; biloma found on CT scan -S/p IR placed drainage ---removed today at bedside -Tolerating regular diet -DC antibiotics -GS clear for DC -Follow up appt set for Sep 26 at 1:50PM Attending Statement Drain removed without difficulty. Pt desires Dc tomorrow. The exam, history, and the medical decision-making described in the above note were completed with the assistance of the mid-level provider. I reviewed and agree with the findings presented. I attest that I had a [id number] encounter with the patient on the same day, and personally performed and documented my assessment and findings in the medical record. Parisa Martinez Sep 19, 2017 11:17 Raphael Alcaraz MD Sep 19, 2017 13:38
[2017-09-19] MEDS ORDERED: PRED20 PO (13:13)
[2017-09-19] MEDS ORDERED: predniSONE 20 MG TAB PO ONE (13:15)
--- NOTE | 2017-09-19 14:15 | HHI.PR ---
Subjective Remarks Abdominal drain has been removed today. Patient still has abdominal pain. She has concerns that her abdominal pain might not improved. So far her pain is controlled with [place]. Autoimmune screening is showing some positivity with an elevated ESR and CRP. Recommended a trial of prednisone. Objective Vital Signs Date Time Temp Pulse Resp B/P (MAP) Pulse Ox O2 Delivery O2 Flow Rate FiO2 09/19/17 12:00 98.6 86 17 138/72 (94) 93 09/19/17 08:00 99.2 82 17 146/67 (93) 92 09/19/17 04:00 98.6 69 17 129/62 (84) 93 09/19/17 00:50 75 09/19/17 00:00 97.5 72 16 125/62 (83) 94 09/18/17 20:00 97.4 70 14 129/60 (83) 92 09/18/17 17:26 18 09/18/17 16:00 81 09/18/17 16:00 98.1 73 18 118/71 (87) 91 I/O 09/18/17 09/18/17 09/18/17 09/19/17 09/19/17 09/19/17 07:00 15:00 23:00 07:00 15:00 23:00 Intake Total 1020 ml 200 ml 1540 ml 160 ml Output Total 400 ml 6 ml Balance 620 ml 194 ml 1540 ml 160 ml Intake Oral 720 ml 200 ml 240 ml IV Total 300 ml 1300 ml 160 ml Output Urine Total 400 ml Drainage Total 6 ml # Voids 2 6 3 # Bowel Movements 0 0 0 Result Diagram: 09/18/17 0649 09/18/17 0649 Objective Remarks GENERAL: NAD, A&Ox3 HEAD: Normocephalic. NECK: Supple, trachea midline. No lymphadenopathy. EYES: No scleral icterus. No injection or drainage. CARDIOVASCULAR: Regular rate and rhythm without murmurs, gallops, or rubs. RESPIRATORY: Breath sounds equal bilaterally. No accessory muscle use. GASTROINTESTINAL: Abdomen soft, non-tender, nondistended. Abdominal drain present. MUSCULOSKELETAL: No cyanosis, or edema. SKIN: Warm and dry. NEURO: No focal neurological deficitis. A/P Problem List: (1) Seroma (2) Fluid collection gallbladder fossa (3) Abdominal pain ICD Code: R10.9 - Unspecified abdominal pain (4) Post op infection ICD Code: T81.4XXA - Infection following a procedure, initial encounter Assessment and Plan 52-year-old female with a recent diagnosis of necrotizing cholecystitis status post laparoscopic cholecystectomy who presented with abdominal pain and fever with seroma. Sepsis Fevers Post op seroma in the GB fossa Resolved. Negative cultures And the buttocks discontinued Possible autoimmune condition with exacerbation May have been contributory to her development of seroma May explain fevers in light of no significant evidence of infection Start Trial of prednisone Monitor clinically for improvement ROVERTO is pending If she has clinical improvement and tolerates prednisone overnight will discharge with prednisone Diabetes mellitus type 2 Follow blood sugars Insulin sliding scale Diabetic diet HTN Follow BP No changes to baseline treatments today DVT Prophylaxis SCD/Teds Discharge Planning Discharge planning for tomorrow if pain improves Nathaniel Floyd MD Sep 19, 2017 14:15
--- NOTE | 2017-09-19 22:57 | RADRPT ---
EXAM DATE/TIME: 09/19/2017 22:19 [facility] COMPARISON: CT ABDOMEN & PELVIS W CONTRAST, September 15, 2017, 17:00. INDICATIONS : Abscess drain removed today. ORAL CONTRAST: No oral contrast ingested. RADIATION DOSE: 15.39 CTDIvol (mGy) MEDICAL HISTORY : Cardiovascular disease. Diabetes mellitus type 2. SURGICAL HISTORY : Appendectomy. Cholecystectomy.Abscess drain, right. ENCOUNTER: Subsequent ACUITY: 1 week PAIN SCALE: 0/10 LOCATION: abdomen TECHNIQUE: Volumetric scanning of the abdomen was performed. Using automated exposure control and adjustment of the mA and/or kV according to patient size, radiation dose was kept as low as reasonably achievable to obtain optimal diagnostic quality images. DICOM format image data is available electronically for review and comparison. FINDINGS: Previously seen right upper quadrant drainage catheter has been removed. An approximately 26 mm bile collection and a few bubbles of gas are seen in the gallbladder fossa region, much smaller than previ ous. No new or other collections are seen. Noncontrast appearance of the solid organs within normal l imits. Trace right base atelectasis noted. CONCLUSION: Near-complete resolution of the small bile collection in the gallbladder fossa region. The drainage c atheter has been removed. Jese Long MD on September 19, 2017 at 22:53 Board Certified Radiologist. This report was verified electronically.
[2017-09-20] VITALS: BP 142/71; PULSE 68; RESP 15; TEMP 97.8; O2SAT 95
[2017-09-20 04:00] VITALS: BP 132/75; PULSE 69; RESP 16; TEMP 98.7; O2SAT 94
[2017-09-20 08:00] VITALS: BP 134/78; PULSE 94; RESP 16; TEMP 97.4; O2SAT 94
[2017-09-20] MEDS: PANTOPRAZOLE SOD 40 MG DELAYED RELEASE TAB PO SCH (08:40)
[2017-09-20] MEDS: ESCITALOPRAM OXALATE 10 MG TAB PO SCH (08:40)
[2017-09-20] MEDS: LISINOPRIL 5 MG TAB PO SCH (08:41)
[2017-09-20] MEDS: SODIUM CHLORIDE 0.9% FLUSH 10 ML FLUSH IV FLUSH SCH (08:41)
[2017-09-20] MEDS: SERTRALINE HCL 50 MG TAB PO SCH (08:41)
[2017-09-20] MEDS: DOCUSATE SODIUM 50 MG/SENNA 8.6 MG TAB PO SCH (08:41)
[2017-09-20] MEDS: ACETAMINOPHEN/HYDROcodone 325 MG/5 MG TAB PO PRN (08:58)
[2017-09-20] MEDS: INSULIN ASPART SUPPLEMENTAL SCALE SQ SCH (08:58)
[2017-09-20] MEDS ORDERED: predniSONE 20 MG TAB PO SCH (09:00)
--- NOTE | 2017-09-20 11:59 | HHI.DS ---
Discharge Summary Admission Date Sep 15, 2017 at 19:09 Discharge Date: Sep 20, 2017 Admitting Diagnosis abdominal pain. Status post cholecystectomy. (1) Sepsis ICD Code: A41.9 - Sepsis, unspecified organism Diagnosis: Secondary (2) Post op infection ICD Code: T81.4XXA - Infection following a procedure, initial encounter Diagnosis: Principal (3) HTN (hypertension) ICD Code: I10 - Essential (primary) hypertension Diagnosis: Secondary (4) DM (diabetes mellitus) ICD Code: E11.9 - Type 2 diabetes mellitus without complications Diagnosis: Secondary Procedures Post-Cholecystectomy seroma drainage. Brief History - From Admission This is a 52-year-old female with a PMH of HTN, Anxiety, Depression, Hyperlipidemia and DM who presented to ER with complaints of RUQ pain and bloating. Recent Lap Cholecystectomy for Gangrenous Cholecystitis by Dr. Alcaraz 09/07/17. Had been doing well post-op until last night. States she had mac and cheese, then developed significant bloating. Today w/ ongoing symptoms and RUQ pain. Pain is sharp, constant, severe 8/10, non-radiating. Reports subjective fever/chills in addition to nausea, but no vomiting. On arrival, BP 145/80, HR 96 O2 sat 96% on RA, Temp 101.3. WBC 18.2. Chemistry essentially unremarkable. Lactic Acid normal. UA negative. CT Abd/Pelvis s/p cholecystectomy findings of biloma in gallbladder fossa, tube crossing the collection. Dr. Santoyo consulted by ER physician, will evaluate for surgical intervention for possible abscess. S/p Azactam and Flagyl in ER. CBC/BMP: 09/18/17 0649 09/18/17 0649 Significant Findings Laboratory Tests Test 09/18/17 06:49 09/19/17 08:24 Red Blood Count 3.41 MIL/MM3 (4.00-5.30) Hemoglobin 10.3 GM/DL (11.6-15.3) Hematocrit 30.2 % (35.0-46.0) Platelet Count 456 TH/MM3 (150-450) Random Glucose 205 MG/DL (74-106) Erythrocyte Sedimentation Rate 74 mm/hr (0-30) C-Reactive Protein 4.40 MG/DL (0.00-0.30) PE at Discharge GENERAL: in NAD looks very comfortable. I saw the patient thru the window prior to entering the room she was sitting on the commode looked very comfortable. CARDIOVASCULAR: Regular rate and rhythm without murmurs, gallops, or rubs. RESPIRATORY: Breath sounds equal bilaterally. No accessory muscle use. GASTROINTESTINAL: Abdomen soft, nondistended. + mild TTP at the drain site MUSCULOSKELETAL: No cyanosis, or edema. BACK: Nontender without obvious deformity. No CVA tenderness. Hospital Course Mrs. Douglas is a 52-year-old female. She was admitted secondary to suspicion for postop infection. She had a gangrenous cholecystectomy performed about 2 weeks ago. Abdominal pain was present and she also had fevers. Imaging showed a seroma and seroma was drained, drain tube was maintained after the procedure. No signs of infection on culture or on Gram stain. Fevers have resolved and antibiotics were discontinued. Etiology for her fevers became suspicious to be related to autoimmunity as she has intermittent fevers in her history for years prior. Autoimmune workup was performed and she tested positive with her ESR and CRP. ROVERTO is pending. Rheumatoid factor is negative. Prednisone is given on a trial basis and she'll follow-up with PCP as an outpatient. All drains have been removed as of yesterday. Medically stable for discharge home today. Pt Condition on Discharge: Stable Discharge Disposition: Discharge Home Discharge Time: <= 30 minutes Discharge Instructions DIET: Follow Instructions for: As Tolerated, No Restrictions Activities you can perform: Regular-No Restrictions Follow up Referrals: PCP Follow-up - 2 Weeks Surgical - 09/26/17 with Raphael Alcaraz MD Appt set for Sep 26 at 1:50PM New Medications: Prednisone (Prednisone) 20 Mg Tab 20 MG PO DAILY for Inflammation, #4 TAB 0 Refills Continued Medications: Fawooxtayw-Mxspzsgkaeiin-Ozarhrbg (Gnygtdrxnw-Abnejmipclzlm-Lqzqoyzh) 50-300-40 Mg Cap 1 CAP PO Q4H PRN for HEADACHE, CAP 0 Refills Do not exceed 6 capsules/day. Calcium Citrate-Vitamin D (Citracal + D3 Maximum) 315-250 Mg-Unit Tab 1 TAB PO BID for Calcium Supplement, #100 TAB 0 Refills Docusate Sodium (Dok) 100 Mg Cap 100 MG PO DAILY for Constipation Escitalopram (Escitalopram) 10 Mg Tab 10 MG PO DAILY, #30 TAB 0 Refills Fluticasone Nasal [place] (Flonase Nasal [place]) 50 Mcg/Act [place] 1 SPRAY EACH NARE BID for Allergies, #1 BOTTLE 0 Refills Hydrocodone/Acetaminophen (Hydrocodone-Acetamin 5-325 mg) 5 Mg-325 Mg Tablet 1 TAB PO Q4H PRN for moderate to severe pain, #40 TAB 0 Refills Insulin Glargine Inj (Lantus Inj) 100 Unit/Ml Inj 18 UNITS SQ DAILY IN THE AM Insulin Glargine Inj (Lantus Inj) 1,000 Unit/10 Ml Vial 20 UNITS SQ HS for Blood Sugar Management, VIAL 0 Refills Insulin Lispro (Human) Inj (Humalog Inj) 1,000 Unit/10 Ml Vial 8 UNITS SQ TIDAC for Blood Sugar Management, #1 VIAL 3 Refills SQ SSI: 121-150=2 units, 151-200=4 units, 201-250=6 units, 251-300=8 units, 301-350=10 units,>351 call/go to ED Lisinopril (Lisinopril) 2.5 Mg Tab 2.5 MG PO DAILY, #30 TAB 3 Refills Loratadine (Claritin) 10 Mg Cap 10 MG PO DAILY for Allergy Management, CAP 0 Refills Meclizine (Meclizine) 25 Mg Tab 25 MG PO TID PRN for VERTIGO, TAB 0 Refills Metformin (Metformin) 850 Mg Tab 850 MG PO BIDPC for Blood Sugar Management, #60 TAB 3 Refills With meals Ondansetron Odt (Zofran Odt) 4 Mg Tab 4 MG SL Q8HR PRN for Nausea/Vomiting, #30 TAB 0 Refills Pantoprazole (Pantoprazole) 40 Mg Tab 40 MG PO DAILY for Reflux, #30 TAB 2 Refills Sertraline (Zoloft) 25 Mg Tab 25 MG PO DAILY, #30 TAB 0 Refills Discontinued Medications: Naproxen (Naprosyn) 500 Mg Tab 500 MG PO Q12HR PRN for PAIN, #60 TAB 0 Refills Nathaniel Floyd MD Sep 20, 2017 11:59
== END 2017-09-20 09:26 | disposition home or self-care (01) | DRG 921 ==
LOC: NEPE 14:17 → NEDA 19:09 → N07A 21:06
PROVIDERS: ADMIT Hospitalist; ATTEND Hospitalist
PROC: 0W9G30Z Drainage of Peritoneal Cavity with Drainage Device, Percutaneous Approach (ICD-10-PCS; principal; 2017-09-16)
DX: K91.872 Postprocedural seroma of a digestive system organ or structure following a digestive system procedure (principal); I95.9 Hypotension, unspecified; E11.9 Type 2 diabetes mellitus without complications; I10 Essential (primary) hypertension; E78.5 Hyperlipidemia, unspecified; F41.9 Anxiety disorder, unspecified; F32.9 Major depressive disorder, single episode, unspecified; G47.30 Sleep apnea, unspecified; M19.90 Unspecified osteoarthritis, unspecified site; R11.0 Nausea; R51 Headache; R70.0 Elevated erythrocyte sedimentation rate; Z90.49 Acquired absence of other specified parts of digestive tract; Z79.4 Long term (current) use of insulin
CPT/HCPCS: 10160; 74150; 74177; 75989; 76937; 78227; 80048; 80053; 81001; 82948; 83605; 85025; 85027; 85610; 85652; 85730; 86038; 86140; 86430; 86617; 87040; 96365; 99152; 99153; A9537; C1729; C1769; J0744; J1200; J1815; J2250; J2405; J2805; J3010; J7030; J7512; Q9967